=== PATIENT | female | born 1960 | race Hispanic/Latino ===

== ENCOUNTER 2017-06-10 19:00 | Emergency (ER) | payer MEDICAID, OTHER ==
[2017-06-10 19:09] VITALS: BP 139/74; PULSE 91; RESP 16; TEMP 98.2; O2SAT 96
--- NOTE | 2017-06-10 20:16 | ED PDOC ---
HPI: Skin/Bite Injury Time Seen by Provider: 06/10/17 20:00 Chief Complaint (Nursing): Bite Chief Complaint (Provider): bites History Per: Patient History/Exam Limitations: no limitations Onset/Duration Of Symptoms: Days (6) Current Symptoms Are (Timing): Still Present Quality Of Symptoms: Itching Additional History Per: Patient Additional Complaint(s): 56 y/o female presents for eval of pruritic bites x 5 days. Patient states she recently has been staying in the [place], and feels herself getting bit by bed bugs at night; states she has even seen them on her bed. Patient admits to itching bites, and now notes swelling around areas with welts. Denies fever, nausea/vomiting, drainage from sites. Past Medical History Reviewed: Historical Data, Nursing Documentation, Vital Signs Vital Signs: Last Vital Signs Temp 98.2 F 06/10/17 19:07 Pulse 91 H 06/10/17 19:07 Resp 16 06/10/17 19:07 BP 139/74 06/10/17 19:07 Pulse Ox 96 06/10/17 20:20 - Medical History PMH: Asthma, Bronchitis, Depression - Surgical History Surgical History: No Surg Hx - Family History Family History: States: No Known Family Hx - Home Medications Home Medications: Ambulatory Orders Medication Instructions Recorded Prednisone 50 mg PO DAILY #4 tablet 06/10/17 - Allergies Allergies/Adverse Reactions: Allergies Allergy/AdvReac Type Severity Reaction Status Date / Time Sulfa (Sulfonamide Allergy RASH Verified 06/10/17 19:06 Antibiotics) Review of Systems ROS Statement: Except As Marked, All Systems Reviewed And Found Negative Skin: Positive for: Lesions Physical Exam - Reviewed Nursing Documentation Reviewed: Yes - Physical Exam Appears: Positive for: Well, Non-toxic, Uncomfortable (scratching) Head Exam: Positive for: ATRAUMATIC, NORMAL INSPECTION, NORMOCEPHALIC Skin: Positive for: Rash (diffuse scabbed lesions (bites) with surrounding edema /erythema noted bilateral upper and lower extremities, neck, chest, abdomen, back. Neck area with same, also with diffuse hives. No drainage, increased warmth to touch, tenderness noted. No bugs noted) Cardiovascular/Chest: Positive for: Regular Rate, Rhythm Respiratory: Positive for: Normal Breath Sounds Gastrointestinal/Abdominal: Positive for: Normal Exam Back: Positive for: Normal Inspection Extremity: Positive for: Normal ROM Neurologic/Psych: Positive for: Alert, Oriented - ECG O2 Sat by Pulse Oximetry: 96 - Progress ED Course And Treament: Benadryl PO, Prednisone PO Patient educated on findings, discharged with rx Prednisone. Advised Benadryl PRN. Follow up PMD 2-3 days. Return to Ed for worsening/concerning symptoms Disposition - Clinical Impression Clinical Impression: Rash and nonspecific skin eruption, Bedbug bite - Patient ED Disposition Is Patient to be Admitted: No Counseled Patient/Family Regarding: Studies Performed, Diagnosis, Need For Followup, Rx Given - Disposition Referrals: [facility] [Outside] Disposition: Routine/Home Disposition Time: 21:01 Condition: IMPROVED Additional Instructions: Take medication as directed. Take Benadryl every 4-6 hours as directed. Follow up with primary doctor in 2-3 days. Return to ED for worsening/concerning symptoms. Prescriptions: Prednisone 50 mg PO DAILY #4 tablet Instructions: Acute Rash (ED), Bed Bugs (ED)
== END 2017-06-10 21:27 | disposition home or self-care (01) ==
LOC: H.ER 19:00
DX: T14.8XXA Other injury of unspecified body region, initial encounter (principal); W57.XXXA Bitten or stung by nonvenomous insect and other nonvenomous arthropods, initial encounter; Y92.89 Other specified places as the place of occurrence of the external cause; F32.9 Major depressive disorder, single episode, unspecified; J45.909 Unspecified asthma, uncomplicated

== ENCOUNTER 2017-06-12 18:11 | Emergency (ER) | payer MEDICAID, OTHER ==
[2017-06-12 18:41] VITALS: BP 130/69; PULSE 76; RESP 18; TEMP 97; O2SAT 97
--- NOTE | 2017-06-12 19:05 | ED PDOC ---
Lower Extremity Pain/Injury Time Seen by Provider: 06/12/17 18:50 Chief Complaint (Nursing): Lower Extremity Problem/Injury Chief Complaint (Provider): Left knee pain History Per: Patient History/Exam Limitations: no limitations Onset/Duration Of Symptoms: Other (3 weeks) Current Symptoms Are (Timing): Still Present Additional Complaint(s): Patient is a 56 y/o female with no significant past medical history presenting to the emergency department for left knee pain ongoing for three weeks. Reports that she may have twisted it. Denies fall, trauma, or other complaints. PCP: none provided. Past Medical History Reviewed: Historical Data, Nursing Documentation, Vital Signs Vital Signs: Last Vital Signs Temp 97 F L 06/12/17 18:38 Pulse 76 06/12/17 18:38 Resp 18 06/12/17 18:38 BP 130/69 06/12/17 18:38 Pulse Ox 97 06/12/17 18:38 - Medical History PMH: Asthma, Bronchitis, Depression - Family History Family History: States: Unknown Family Hx - Home Medications Home Medications: Ambulatory Orders Medication Instructions Recorded Prednisone 50 mg PO DAILY #4 tablet 06/10/17 Ibuprofen [Motrin] 600 mg PO Q8 #30 tab 06/12/17 - Allergies Allergies/Adverse Reactions: Allergies Allergy/AdvReac Type Severity Reaction Status Date / Time Sulfa (Sulfonamide Allergy RASH Verified 06/12/17 18:38 Antibiotics) Review of Systems ROS Statement: Except As Marked, All Systems Reviewed And Found Negative Musculoskeletal: Positive for: Leg Pain (left knee pain), Other (traumatic pain) Physical Exam - Reviewed Nursing Documentation Reviewed: Yes Vital Signs Reviewed: Yes - Physical Exam Appears: Positive for: Well, Non-toxic, No Acute Distress Head Exam: Positive for: ATRAUMATIC, NORMAL INSPECTION, NORMOCEPHALIC Skin: Positive for: Normal Color, Warm, Dry Eye Exam: Positive for: Normal appearance Neck: Positive for: Normal Cardiovascular/Chest: Positive for: Regular Rate, Rhythm Respiratory: Negative for: Accessory Muscle Use, Respiratory Distress Extremity: Positive for: Normal ROM, Tenderness (mild tenderness to anterior left knee), Other (Dry skin, excoriations, and scabs on legs bilaterally). Negative for: Swelling (or ecchymosis) Neurologic/Psych: Positive for: Alert, Oriented (x3) - ECG O2 Sat by Pulse Oximetry: 97 (RA) Pulse Ox Interpretation: Normal Medical Decision Making Medical Decision Making: Time: 19:04 Initial impression: Left knee pain Initial plan: Toradol 30 mg IM Pain relieved. Patient has her own knee brace. ~ Scribe Attestation: Documented by Dee Hardy, acting as a scribe for ROXANE Garces. Provider Scribe Attestation: All medical record entries made by the Scribe were at my direction and personally dictated by me. I have reviewed the chart and agree that the record accurately reflects my personal performance of the history, physical exam, medical decision making, and the department course for this patient. I have also personally directed, reviewed, and agree with the discharge instructions and disposition. Disposition - Clinical Impression Clinical Impression: Knee sprain - Patient ED Disposition Is Patient to be Admitted: No Counseled Patient/Family Regarding: Diagnosis, Need For Followup, Rx Given - Disposition Referrals: [facility] [Outside] Disposition: Routine/Home Disposition Time: 19:44 Condition: STABLE Additional Instructions: Follow up with the clinic in 2-5 days for further evaluation. Take medications as prescribed. Return to the emergency department at any time if symptoms persist or worsen. You may call [employer] for any assistance [phone]. Prescriptions: Ibuprofen [Motrin] 600 mg PO Q8 #30 tab Instructions: Knee Sprain (ED) Forms: [employer] (Luxembourgish), [facility] ED School/Work Excuse - POA Present On Arrival: None
== END 2017-06-12 20:45 | disposition home or self-care (01) ==
LOC: H.ER 18:11
DX: M25.562 Pain in left knee (principal)
CPT/HCPCS: 96372; 99281; J1885

== ENCOUNTER 2017-07-23 03:08 | Emergency (ER) | payer MEDICAID ==
[2017-07-23 03:48] VITALS: BMI 19.2
[2017-07-23 03:52] VITALS: BP 115/69; PULSE 90; RESP 18; TEMP 97.4; O2SAT 94
--- NOTE | 2017-07-23 04:25 | ED PDOC ---
Lower Extremity Pain/Injury Time Seen by Provider: 07/23/17 04:01 Chief Complaint (Nursing): Lower Extremity Problem/Injury Chief Complaint (Provider): left knee pain History Per: Patient History/Exam Limitations: no limitations Onset/Duration Of Symptoms: Days Current Symptoms Are (Timing): Still Present Additional History Per: Patient Additional Complaint(s): 57 y/o female presents with left knee pain x 2 months. States pain started after a trip and fall, where she landed right on her left knee. Patient seen by PMD 2 days ago and prescribed Naproxen and sent for xray but has not yet been able to get it done. Denies numbness/weakness left lower extremity. Aleeve taken with some relief. Past Medical History Reviewed: Historical Data, Nursing Documentation, Vital Signs Vital Signs: Last Vital Signs Temp 97.4 F L 07/23/17 03:48 Pulse 90 07/23/17 03:48 Resp 18 07/23/17 03:48 BP 115/69 07/23/17 03:48 Pulse Ox 94 L 07/23/17 03:48 - Medical History PMH: Asthma, Bronchitis, Depression - Family History Family History: States: Unknown Family Hx - Home Medications Home Medications: Ambulatory Orders Medication Instructions Recorded Prednisone 50 mg PO DAILY #4 tablet 06/10/17 Ibuprofen [Motrin] 600 mg PO Q8 #30 tab 06/12/17 - Allergies Allergies/Adverse Reactions: Allergies Allergy/AdvReac Type Severity Reaction Status Date / Time Sulfa (Sulfonamide Allergy RASH Verified 07/23/17 03:48 Antibiotics) Review of Systems ROS Statement: Except As Marked, All Systems Reviewed And Found Negative Musculoskeletal: Positive for: Leg Pain (left knee) Physical Exam - Reviewed Nursing Documentation Reviewed: Yes Vital Signs Reviewed: Yes - Physical Exam Appears: Positive for: Well, Non-toxic, No Acute Distress (sleeping) Head Exam: Positive for: ATRAUMATIC, NORMAL INSPECTION, NORMOCEPHALIC Extremity: Positive for: Normal ROM, Tenderness (lateral left knee. No varus/ valgus stress. Neg Jose's), Capillary Refill, Swelling (left patella). Negative for: Pedal Edema, Calf Tenderness, Deformity Neurologic/Psych: Positive for: Alert, Oriented. Negative for: Motor/Sensory Deficits - ECG O2 Sat by Pulse Oximetry: 94 - Progress ED Course And Treament: left knee xray EXAM: XR Left Knee, 3 views CLINICAL HISTORY: 57 years old, female; Pain and injury or trauma; Fall; Initial encounter; Blunt trauma; Knee; Left; Additional info: Fall, pain TECHNIQUE: Three views of the left knee. COMPARISON: No relevant prior studies available. FINDINGS: Bones/joints: Comminuted fracture patella. Chondroid lesion or bone infarct within distal femoral metadiaphysis. No dislocation. No significant joint effusion. Soft tissues: Anterior soft tissue swelling. IMPRESSION: 1. Patellar fracture. 2. Incidental/non-acute findings are described above. Patient educated on findings, refusing QUE wrap, knee immobilizer; states she has her own knee brace. Patient refusing crutches. Advised RICE. Has rx Naproxen. Advised follow up ortho. Return precautions given. Disposition - Clinical Impression Clinical Impression: Patellar fracture - Patient ED Disposition Is Patient to be Admitted: No Counseled Patient/Family Regarding: Studies Performed, Diagnosis, Need For Followup - Disposition Referrals: Tata Penaloza MD [Primary Care Provider] - Daniel Case III, MD [Staff Provider] - Disposition: Routine/Home Disposition Time: 05:06 Condition: STABLE Instructions: Patellar Fracture (ED), RICE Therapy (ED) Forms: [employer] (Ivorian)
--- NOTE | 2017-07-23 04:53 | RAD ---
EXAM: XR Left Knee, 3 views CLINICAL HISTORY: 57 years old, female; Pain and injury or trauma; Fall; Initial encounter; Blunt trauma; Knee; Left; Additional info: Fall, pain TECHNIQUE: Three views of the left knee. COMPARISON: No relevant prior studies available. FINDINGS: Bones/joints: Comminuted fracture patella. Chondroid lesion or bone infarct within distal femoral metadiaphysis. No dislocation. No significant joint effusion. Soft tissues: Anterior soft tissue swelling. IMPRESSION: 1. Patellar fracture. 2. Incidental/non-acute findings are described above.
== END 2017-07-23 05:13 | disposition home or self-care (01) ==
LOC: H.ER 03:08
DX: S82.002A Unspecified fracture of left patella, initial encounter for closed fracture (principal); W19.XXXA Unspecified fall, initial encounter; Y92.89 Other specified places as the place of occurrence of the external cause; F32.9 Major depressive disorder, single episode, unspecified; J45.909 Unspecified asthma, uncomplicated

== ENCOUNTER 2017-08-14 23:26 | Emergency (ER) | payer MEDICAID ==
[2017-08-14 23:26] VITALS: BMI 19.2
[2017-08-14 23:44] VITALS: BP 126/66; PULSE 70; RESP 16; TEMP 97.5; O2SAT 96
[2017-08-15] MEDS ORDERED: Naproxen 500 MG TAB PO ONE ×2 (00:37→00:57)
--- NOTE | 2017-08-15 00:40 | ED PDOC ---
Lower Extremity Pain/Injury Time Seen by Provider: 08/14/17 23:52 Chief Complaint (Nursing): Lower Extremity Problem/Injury Chief Complaint (Provider): left knee pain History Per: Patient History/Exam Limitations: no limitations Onset/Duration Of Symptoms: Days (months) Current Symptoms Are (Timing): Still Present Additional History Per: Patient Additional Complaint(s): 57 y/o nondomicled female presents with left knee pain x months. Patient was diagnosed with patellar fracture on 07/23, states she has not been able to follow up with her primary doctor or an orthopedist. Denies new fall, numbness/ weakness left lower extremity, swelling left lower extremity. Past Medical History Reviewed: Historical Data, Nursing Documentation, Vital Signs Vital Signs: Last Vital Signs Temp 97.5 F L 08/14/17 23:41 Pulse 70 08/14/17 23:41 Resp 16 08/14/17 23:41 BP 126/66 08/14/17 23:41 Pulse Ox 96 08/14/17 23:41 - Medical History PMH: Asthma, Bronchitis, Depression - Family History Family History: States: Unknown Family Hx - Home Medications Home Medications: Ambulatory Orders Medication Instructions Recorded Prednisone 50 mg PO DAILY #4 tablet 06/10/17 Ibuprofen [Motrin] 600 mg PO Q8 #30 tab 06/12/17 - Allergies Allergies/Adverse Reactions: Allergies Allergy/AdvReac Type Severity Reaction Status Date / Time Sulfa (Sulfonamide Allergy RASH Verified 07/23/17 03:48 Antibiotics) Review of Systems ROS Statement: Except As Marked, All Systems Reviewed And Found Negative Musculoskeletal: Positive for: Leg Pain (left knee) Physical Exam - Reviewed Nursing Documentation Reviewed: Yes Vital Signs Reviewed: Yes - Physical Exam Appears: Positive for: Well, Non-toxic, No Acute Distress (sleeping) Head Exam: Positive for: ATRAUMATIC, NORMAL INSPECTION, NORMOCEPHALIC Skin: Positive for: Normal Color Cardiovascular/Chest: Positive for: Regular Rate, Rhythm Respiratory: Positive for: Normal Breath Sounds Pulses-Dorsalis Pedis (L): 2+ Pulses-Dorsalis Pedis (R): 2+ Pulses-Post. Tibialis (L): 2+ Pulses-Post. Tibialis (R): 2+ Extremity: Positive for: Normal ROM, Tenderness (anterior left knee; no swelling , obvious deformity noted), Capillary Refill. Negative for: Calf Tenderness, Deformity, Swelling Neurologic/Psych: Positive for: Alert, Oriented - ECG O2 Sat by Pulse Oximetry: 96 - Progress ED Course And Treament: Patient given Naproxen. Stressed importance of ortho follow up. Patient has knee brace, refused crutches. Patient stable for discharge. Return precautions given. Disposition - Clinical Impression Clinical Impression: Patellar fracture - Patient ED Disposition Is Patient to be Admitted: No Counseled Patient/Family Regarding: Diagnosis, Need For Followup - Disposition Referrals: Luis Alberto Talley MD [Staff Provider] - Disposition: Routine/Home Disposition Time: 00:40 Condition: STABLE Instructions: Patellar Fracture (ED), RICE Therapy (ED)
== END 2017-08-15 03:35 | disposition home or self-care (01) ==
LOC: H.ER 23:26
DX: Z47.89 Encounter for other orthopedic aftercare (principal)

== ENCOUNTER 2017-09-06 18:34 | Emergency (ER) | payer MEDICAID ==
[2017-09-06 18:34] VITALS: BMI 19.2
[2017-09-06] MEDS ORDERED: Albuterol-Ipratrop 3 mg / 0.5 (3 ml) UD IH STA (21:05)
--- NOTE | 2017-09-06 21:08 | ED PDOC ---
HPI: CCC, URI, Sore Throat Time Seen by Provider: 09/06/17 20:40 Chief Complaint (Nursing): Shortness Of Breath History Per: Patient Onset/Duration Of Symptoms: Days (7) Current Symptoms Are (Timing): Still Present Associated Symptoms: Cough. denies: Fever, Sputum Severity: Mild Additional Complaint(s): Cough productive clear sputum assoc with congestion x 1 week. Recently finishe 1 week tx of Augmentin 25 pack/year smoker. Past Medical History Vital Signs: Last Vital Signs Temp 97.5 F L 09/06/17 18:44 Pulse 109 H 09/06/17 18:44 Resp 17 09/06/17 21:56 BP 109/70 09/06/17 18:44 Pulse Ox 100 09/06/17 21:09 - Medical History PMH: Asthma, Bronchitis, Depression - Family History Family History: States: Unknown Family Hx - Home Medications Home Medications: Ambulatory Orders Medication Instructions Recorded Prednisone 50 mg PO DAILY #4 tablet 06/10/17 Ibuprofen [Motrin] 600 mg PO Q8 #30 tab 06/12/17 Albuterol HFA [Ventolin HFA 90 2 puff IH Q4H #1 puff 09/06/17 mcg/actuation (8 g)] Prednisone 50 mg PO DAILY #5 tab 09/06/17 - Allergies Allergies/Adverse Reactions: Allergies Allergy/AdvReac Type Severity Reaction Status Date / Time Sulfa (Sulfonamide Allergy RASH Verified 09/06/17 18:44 Antibiotics) Review of Systems Constitutional: Negative for: Fever ENT: Positive for: Nose Congestion. Negative for: Throat Pain Respiratory: Positive for: Cough, Wheezing Physical Exam - Physical Exam Appears: Positive for: Non-toxic, No Acute Distress Skin: Positive for: Normal Color, Warm, DRY ENT: Positive for: Normal ENT Inspection Neck: Positive for: Normal, Painless ROM Cardiovascular/Chest: Positive for: Regular Rate, Rhythm Respiratory: Positive for: Rhonchi, Wheezing. Negative for: Respiratory Distress Extremity: Positive for: Normal ROM Neurologic/Psych: Positive for: Alert, Oriented - ECG O2 Sat by Pulse Oximetry: 100 Disposition - Clinical Impression Clinical Impression: Bronchitis, chronic - Patient ED Disposition Is Patient to be Admitted: No Counseled Patient/Family Regarding: Studies Performed, Diagnosis, Need For Followup, Rx Given, Smoking Cessation - Disposition Referrals: [facility] [Outside] Disposition: Routine/Home Disposition Time: 23:19 Condition: FAIR Prescriptions: Albuterol HFA [Ventolin HFA 90 mcg/actuation (8 g)] 2 puff IH Q4H #1 puff Prednisone 50 mg PO DAILY #5 tab Instructions: Chronic Bronchitis (ED) Forms: [employer] (Beninese)
[2017-09-06] MEDS ORDERED: Albuterol-Ipratrop 3 mg / 0.5 (3 ml) UD ONE (21:43)
[2017-09-06 23:48] VITALS: BP 139/71; PULSE 89; RESP 16; TEMP 97.9; O2SAT 97
--- NOTE | 2017-09-07 09:00 | RAD ---
HISTORY: cough COMPARISON: Chest radiograph dated 08/26/2013. TECHNIQUE: Chest PA and lateral FINDINGS: LUNGS: No active pulmonary disease. PLEURA: No significant pleural effusion identified. No pneumothorax apparent. CARDIOVASCULAR: Atherosclerotic aortic calcifications. Cardiomediastinal silhouette within normal limits. OSSEOUS STRUCTURES: Partially imaged left humeral intramedullary leesa. Unchanged. VISUALIZED UPPER ABDOMEN: Normal. OTHER FINDINGS: None. IMPRESSION: No active disease.
== END 2017-09-06 23:48 | disposition home or self-care (01) ==
LOC: H.ER 18:34
DX: J40 Bronchitis, not specified as acute or chronic (principal); J45.909 Unspecified asthma, uncomplicated; F32.9 Major depressive disorder, single episode, unspecified

== ENCOUNTER 2017-09-08 06:47 | Emergency (ER) | payer MEDICAID ==
[2017-09-08 06:48] VITALS: BMI 19.2
[2017-09-08 07:41] VITALS: BP 117/75; PULSE 108; RESP 18; TEMP 98.2; O2SAT 96
--- NOTE | 2017-09-08 08:10 | ED PDOC ---
HPI: General Adult Time Seen by Provider: 09/08/17 07:14 Chief Complaint (Nursing): Headache History Per: Patient History/Exam Limitations: no limitations Onset/Duration Of Symptoms: Other (x 2 months) Current Symptoms Are (Timing): Still Present Recently: Seen In ED Additional History Per: Prior Records Additional Complaint(s): Arcelia is a 57 year old female, with a past medical history of depression, who presents to the emergency department complaining of cough, nasal congestion , sneezing on and off for 2 months. Patient states she finished Augmentin a week ago. Patient reports she tried Mucinex and states it cleared up her nasal congestion. Reports some body aches, but denies fever, nausea, chills. Patient was here yesterday and prescribed prednisone and albuterol. Patient is here for second opinion. Symptoms have not worsen. PMD: [facility] Past Medical History Reviewed: Historical Data, Nursing Documentation, Vital Signs Vital Signs: Last Vital Signs Temp 98.2 F 09/08/17 07:38 Pulse 108 H 09/08/17 07:38 Resp 18 09/08/17 07:38 BP 117/75 09/08/17 07:38 Pulse Ox 96 09/08/17 08:21 - Medical History PMH: Asthma, Bronchitis, Depression - Surgical History Surgical History: No Surg Hx - Family History Family History: States: Unknown Family Hx - Home Medications Home Medications: Ambulatory Orders Medication Instructions Recorded Prednisone 50 mg PO DAILY #4 tablet 06/10/17 Ibuprofen [Motrin] 600 mg PO Q8 #30 tab 06/12/17 Albuterol HFA [Ventolin HFA 90 2 puff IH Q4H #1 puff 09/06/17 mcg/actuation (8 g)] Prednisone 50 mg PO DAILY #5 tab 09/06/17 - Allergies Allergies/Adverse Reactions: Allergies Allergy/AdvReac Type Severity Reaction Status Date / Time Sulfa (Sulfonamide Allergy RASH Verified 09/08/17 07:38 Antibiotics) Review of Systems ROS Statement: Except As Marked, All Systems Reviewed And Found Negative Constitutional: Positive for: Other (Body aches). Negative for: Fever, Chills ENT: Positive for: Nose Congestion, Other (Sneezing) Respiratory: Positive for: Cough Neurological: Positive for: Headache Physical Exam - Reviewed Nursing Documentation Reviewed: Yes Vital Signs Reviewed: Yes - Physical Exam Appears: Positive for: Non-toxic Head Exam: Positive for: ATRAUMATIC, NORMAL INSPECTION, NORMOCEPHALIC Skin: Positive for: Normal Color, Warm, Dry Eye Exam: Positive for: Normal appearance, EOMI, PERRL ENT: Positive for: Nasal Congestion Neck: Positive for: Normal Cardiovascular/Chest: Positive for: Tachycardia Respiratory: Positive for: Normal Breath Sounds. Negative for: Respiratory Distress Extremity: Positive for: Normal ROM. Negative for: Deformity Neurologic/Psych: Positive for: Alert, Oriented (x 3) - ECG O2 Sat by Pulse Oximetry: 96 (RA) Pulse Ox Interpretation: Normal Medical Decision Making Medical Decision Making: Time: 08:09 Impression(s): Bronchitis, URI Upon provider evaluation patient is medically stable, and requires no further treatment in the ED at this time. Counseling was provided and all questions were answered regarding diagnosis and need for follow up with PCP. There is agreement to discharge plan. Return if symptoms persist or worsen. Scribe Attestation: Documented by Epifanio Ac, acting as a scribe for Macario Macias MD. Provider Scribe Attestation: All medical record entries made by the Scribe were at my direction and personally dictated by me. I have reviewed the chart and agree that the record accurately reflects my personal performance of the history, physical exam, medical decision making, and the department course for this patient. I have also personally directed, reviewed, and agree with the discharge instructions and disposition. Disposition - Clinical Impression Clinical Impression: Bronchitis, Upper respiratory tract infection - Patient ED Disposition Is Patient to be Admitted: No - Disposition Referrals: Luan Murphy DO, DO [[facility]] - Disposition: Routine/Home Disposition Time: 08:09 Condition: STABLE Additional Instructions: Ms Majano, thank you for letting us take care of you today. Your provider was Dr. Macias. You were treated for Bronchitis, Upper Respiratory Infection. The emergency medical care you received today was directed at your acute symptoms. If you were prescribed any medication, please fill it and take as directed. It may take several days for your symptoms to resolve. Return to the Emergency Department if your symptoms worsen, do not improve, or if you have any other problems. Please contact your doctor or call one of the physicians/clinics you have been referred to that are listed on the Patient Visit Information form that is included in your discharge packet. Bring any paperwork you were given at discharge with you along with any medications you are taking to your follow up visit. Our treatment cannot replace ongoing medical care by a primary care provider (PCP) outside of the emergency department. Thank you for allowing the [employer] team to be part of your care today. If you had an X-Ray or CT scan: A Radiologist will review the ED reading if any change in treatment is needed we will contact you. If you had a blood, urine, or wound culture: It will take several days for the results, if any change in treatment is needed we will contact you. If you had an STI test: It will take 48 hours for the results. Please call after 1 week if you have not heard back. Instructions: Upper Respiratory Infection (ED) Forms: [employer] (Welsh), [facility] ED School/Work Excuse
== END 2017-09-08 09:00 | disposition home or self-care (01) ==
LOC: H.ER 06:47
DX: J06.9 Acute upper respiratory infection, unspecified (principal); F32.9 Major depressive disorder, single episode, unspecified

== ENCOUNTER 2017-09-08 20:48 | Emergency (ER) | payer MEDICAID ==
[2017-09-08 20:52] VITALS: BMI 20.1
[2017-09-08 20:56] VITALS: BP 102/64; PULSE 83; RESP 16; TEMP 98.9; O2SAT 99
[2017-09-08] MEDS ORDERED: Phenylephrine 0.5% Nasal Spray NAS STA (23:54)
--- NOTE | 2017-09-09 00:08 | ED PDOC ---
HPI: Psych/Substance Abuse Time Seen by Provider: 09/08/17 23:31 Chief Complaint (Nursing): Alcohol Ingestion Chief Complaint (Provider): Alcohol Intoxication ED Caveat: Intoxicated History Per: Patient History/Exam Limitations: intoxication Suicide/Self Injury Attempted (Context): None Modifying Factor(s): Alcohol Additional Complaint(s): 57 year old female brought in by EMS presents to ED due to alcohol intoxication and complains of severe bilateral nasal congestion. Patient has a past medical history of asthma and alcohol intoxication. Notes being seen here at the ED earlier for the same complaint and was started on prednisone. Patient is concerned that she should be taking a course of antibiotics, as she was on Augmentin 2 weeks ago and notes that symptoms improved at the time but returned today. (+) mild cough and subjective fever. (-) chest pain, SOB, or trauma. Notes that nasal congestion prevents patient from attaining sleep. Patient admits to drinking today and has had multiple previous visits for alcohol intoxication. Of note, patient's HPI timeline may be unreliable due to alcohol intoxication. PCP: CRISTIAN Past Medical History Reviewed: Historical Data, Nursing Documentation, Vital Signs Vital Signs: Last Vital Signs Temp 98.9 F 09/08/17 20:53 Pulse 83 09/08/17 20:53 Resp 16 09/08/17 20:53 BP 102/64 09/08/17 20:53 Pulse Ox 99 09/08/17 20:53 - Medical History PMH: Asthma, Bronchitis, Depression - Family History Family History: States: No Known Family Hx - Social History Current smoker - smoking cessation education provided: Yes Ex-Smoker (has not smoked in the last 12 months): No Alcohol: > 2 Drinks/Day Drugs: Denies - Home Medications Home Medications: Ambulatory Orders Medication Instructions Recorded Prednisone 50 mg PO DAILY #4 tablet 06/10/17 Ibuprofen [Motrin] 600 mg PO Q8 #30 tab 06/12/17 Albuterol HFA [Ventolin HFA 90 2 puff IH Q4H #1 puff 09/06/17 mcg/actuation (8 g)] Prednisone 50 mg PO DAILY #5 tab 09/06/17 Azithromycin [Zithromax] 250 mg PO DAILY #6 dose 09/09/17 Pseudoephedrine [Sudafed Tab] 60 mg PO Q6 PRN #30 tab 09/09/17 - Allergies Allergies/Adverse Reactions: Allergies Allergy/AdvReac Type Severity Reaction Status Date / Time Sulfa (Sulfonamide Allergy RASH Verified 09/08/17 07:38 Antibiotics) Review of Systems ROS Statement: Except As Marked, All Systems Reviewed And Found Negative Constitutional: Positive for: Fever (subjective) ENT: Positive for: Nose Congestion Cardiovascular: Negative for: Chest Pain Respiratory: Positive for: Cough. Negative for: Shortness of Breath Physical Exam - Reviewed Nursing Documentation Reviewed: Yes Vital Signs Reviewed: Yes - Physical Exam Appears: Positive for: Well, No Acute Distress Head Exam: Positive for: ATRAUMATIC, NORMOCEPHALIC Skin: Positive for: Warm, Dry Eye Exam: Positive for: EOMI, PERRL ENT: Positive for: Nasal Congestion (with erythematous boggy moist turbinates). Negative for: Pharyngeal Erythema, Tonsillar Exudate Neck: Positive for: Painless ROM, Supple Cardiovascular/Chest: Positive for: Regular Rate, Rhythm. Negative for: Murmur Respiratory: Positive for: Normal Breath Sounds. Negative for: Accessory Muscle Use, Respiratory Distress Lymphatic: Negative for: Adenopathy (cervical) Neurologic/Psych: Positive for: Alert, Gait (steady). Negative for: Motor/ Sensory Deficits - ECG O2 Sat by Pulse Oximetry: 99 (RA) Pulse Ox Interpretation: Normal Medical Decision Making Medical Decision Makin Initial impression: EtOH intoxication, sinusitis Initial plan: * Phenylephrine 0.5% 2 spry SHOSHANA Scribe Attestation: Documented by Emmanuelle Hutton acting as a scribe for Michelle Wilkinson MD. Scribe Attestation: All medical record entries made by the Scribe were at my direction and personally dictated by me. I have reviewed the chart and agree that the record accurately reflects my personal performance of the history, physical exam, medical decision making, and the department course for this patient. I have also personally directed, reviewed, and agree with the discharge instructions and disposition. Disposition - Clinical Impression Clinical Impression: Alcohol use, Sinusitis - Disposition Referrals: [facility] [Outside] Disposition: Routine/Home Disposition Time: 23:30 Condition: STABLE Prescriptions: Azithromycin [Zithromax] 250 mg PO DAILY #6 dose Pseudoephedrine [Sudafed Tab] 60 mg PO Q6 PRN #30 tab PRN Reason: congestion Instructions: Sinusitis (ED), Alcohol Intoxication (ED) Forms: [employer] ([place])
== END 2017-09-09 00:35 | disposition home or self-care (01) ==
LOC: H.ER 20:48
DX: F10.129 Alcohol abuse with intoxication, unspecified (principal); J32.9 Chronic sinusitis, unspecified; F32.9 Major depressive disorder, single episode, unspecified; J45.909 Unspecified asthma, uncomplicated

== ENCOUNTER 2017-09-20 18:48 | Emergency (ER) | payer MEDICAID ==
[2017-09-20 18:48] VITALS: BMI 20.1
[2017-09-20 18:56] VITALS: BP 95/56; PULSE 80; RESP 16; TEMP 98.1; O2SAT 99
--- NOTE | 2017-09-20 19:40 | ED PDOC ---
Lower Extremity Pain/Injury Time Seen by Provider: 09/20/17 19:16 Chief Complaint (Nursing): Lower Extremity Problem/Injury Chief Complaint (Provider): left knee pain History Per: Patient Additional Complaint(s): 57-year-old female presents with left knee pain ongoing since May 2017 when she fell. Patient was diagnosed with patellar fracture and was told by orthopedist that she should've had surgery but never did. Patient is currently awaiting approval for physical therapy. She presents today with worsening pain. Patient has been taking Mobic which has helped somewhat with pain. She denies more recent trauma. PMD: none Past Medical History Reviewed: Historical Data, Nursing Documentation, Vital Signs Vital Signs: Last Vital Signs Temp 98.1 F 09/20/17 18:53 Pulse 80 09/20/17 18:53 Resp 16 09/20/17 18:53 BP 95/56 L 09/20/17 18:53 Pulse Ox 99 09/20/17 18:53 - Medical History PMH: Asthma, Depression - Family History Family History: States: No Known Family Hx - Social History Current smoker - smoking cessation education provided: No Alcohol: > 2 Drinks/Day Drugs: Denies - Home Medications Home Medications: Ambulatory Orders Medication Instructions Recorded Prednisone 50 mg PO DAILY #4 tablet 06/10/17 Ibuprofen [Motrin] 600 mg PO Q8 #30 tab 06/12/17 Albuterol HFA [Ventolin HFA 90 2 puff IH Q4H #1 puff 09/06/17 mcg/actuation (8 g)] Prednisone 50 mg PO DAILY #5 tab 09/06/17 Azithromycin [Zithromax] 250 mg PO DAILY #6 dose 09/09/17 Pseudoephedrine [Sudafed Tab] 60 mg PO Q6 PRN #30 tab 09/09/17 - Allergies Allergies/Adverse Reactions: Allergies Allergy/AdvReac Type Severity Reaction Status Date / Time Sulfa (Sulfonamide Allergy RASH Verified 09/08/17 07:38 Antibiotics) Wells Criteria for PE - Wells Criteria for Pulmonary Embolism Clinical Signs and Symptoms of DVT: No P.E is #1 Diagnosis, or Equally Likely: No Heart Rate >100: No Immobilization at least 3 days;Surgery previous 4 weeks: No Previous, objectively diagnosed PE or DVT: No Hemoptysis: No Malignancy w/treatment within 6 months, or palliative: No Total Score: 0 Review of Systems ROS Statement: Except As Marked, All Systems Reviewed And Found Negative Musculoskeletal: Positive for: Other (left knee pain) Physical Exam - Reviewed Nursing Documentation Reviewed: Yes Vital Signs Reviewed: Yes - Physical Exam Appears: Positive for: Well, Non-toxic, No Acute Distress Skin: Negative for: Rash Eye Exam: Positive for: Normal appearance Extremity: Positive for: Other (Point tenderness left patellar region with full range of motion left knee, normal distal sensation left lower extremity) Neurologic/Psych: Positive for: Alert, Oriented - ECG O2 Sat by Pulse Oximetry: 99 Pulse Ox Interpretation: Normal Medical Decision Making Medical Decision Makin57 year old with left knee pain Patient declined pain medication. Knee immoblizer was applied. Patient states she will continue with Mobic and follow-up with her orthopedist. Procedures - Splinting Location: left knee Pre-Made Type: knee immobilizer Pre-Proc Neuro Vasc Exam: normal Post-Proc Neuro Vasc Exam: normal Disposition - Clinical Impression Clinical Impression: Left knee pain - Patient ED Disposition Is Patient to be Admitted: No Counseled Patient/Family Regarding: Need For Followup - Disposition Referrals: Jon Samayoa MD [Staff Provider] - Disposition: Routine/Home Disposition Time: 20:06 Condition: STABLE Additional Instructions: FOLLOW UP SHOBHA WITH YOUR ORTHOPEDIST Instructions: Knee Pain (DC) Forms: [employer] (E[place]ian)
== END 2017-09-20 20:14 | disposition home or self-care (01) ==
LOC: H.ER 18:48
DX: M25.562 Pain in left knee (principal)

== ENCOUNTER 2017-09-29 21:08 | Emergency (ER) | payer MEDICAID ==
[2017-09-29 21:08] VITALS: BMI 20.1
[2017-09-29 21:32] VITALS: BP 123/73; PULSE 80; RESP 16; TEMP 97.9; O2SAT 99
--- NOTE | 2017-09-29 22:18 | ED PDOC ---
HPI: Psych/Substance Abuse Time Seen by Provider: 09/29/17 21:39 Chief Complaint (Nursing): Anxiety Chief Complaint (Provider): anxiety History Per: Patient History/Exam Limitations: no limitations Additional Complaint(s): 57 y/o female history of depression presents with anxiety x 5 hours. Patient states she went to her psychiatrist today for a check up and they increased her lexapro dose. Patient states after that she was denied by the [facility] because she took some Nyquil to help her sleep. Patient states that then triggered her anxiety, admits to having suicidal ideations of doing somewhere and dying; plan to take pills. Denies homicidal ideations, hallucinations, chest pain, shortness of breath, palpitations. Past Medical History Reviewed: Historical Data, Nursing Documentation, Vital Signs Vital Signs: Last Vital Signs Temp 97.9 F 09/29/17 21:28 Pulse 80 09/29/17 21:28 Resp 16 09/29/17 21:28 BP 123/73 09/29/17 21:28 Pulse Ox 99 09/29/17 21:28 - Medical History PMH: Asthma, Bronchitis, Depression - Family History Family History: States: Unknown Family Hx - Home Medications Home Medications: Ambulatory Orders Medication Instructions Recorded Prednisone 50 mg PO DAILY #4 tablet 06/10/17 Ibuprofen [Motrin] 600 mg PO Q8 #30 tab 06/12/17 Albuterol HFA [Ventolin HFA 90 2 puff IH Q4H #1 puff 09/06/17 mcg/actuation (8 g)] Prednisone 50 mg PO DAILY #5 tab 09/06/17 Azithromycin [Zithromax] 250 mg PO DAILY #6 dose 09/09/17 Pseudoephedrine [Sudafed Tab] 60 mg PO Q6 PRN #30 tab 09/09/17 - Allergies Allergies/Adverse Reactions: Allergies Allergy/AdvReac Type Severity Reaction Status Date / Time Sulfa (Sulfonamide Allergy RASH Verified 09/08/17 07:38 Antibiotics) Review of Systems ROS Statement: Except As Marked, All Systems Reviewed And Found Negative Psych: Positive for: Anxiety, Depression Physical Exam - Reviewed Nursing Documentation Reviewed: Yes Vital Signs Reviewed: Yes - Physical Exam Appears: Positive for: Well, Non-toxic, Uncomfortable (anxious, intoxicated) Head Exam: Positive for: ATRAUMATIC, NORMAL INSPECTION, NORMOCEPHALIC Eye Exam: Positive for: Normal appearance ENT: Positive for: Normal ENT Inspection Cardiovascular/Chest: Positive for: Regular Rate, Rhythm Respiratory: Positive for: Normal Breath Sounds Gastrointestinal/Abdominal: Positive for: Normal Exam Back: Positive for: Normal Inspection Extremity: Positive for: Normal ROM Neurologic/Psych: Positive for: Alert, Oriented - Laboratory Results Result Diagrams: 09/29/17 23:16 09/29/17 23:16 - ECG O2 Sat by Pulse Oximetry: 99 - Progress ED Course And Treament: labs, urine, 1:1 09/30/17 00:00 Patient resting comfortably; no distress 1:30 Patient evaluated by bee worker; does not meet criteria for admission at this time as per Dr. Rawls. Follow up outpatient. Patient AAOx3. Ambulating steady gait. Stable for discharge Disposition - Clinical Impression Clinical Impression: Anxiety, Alcohol use - Patient ED Disposition Is Patient to be Admitted: No Counseled Patient/Family Regarding: Studies Performed, Diagnosis, Need For Followup - Disposition Disposition: Routine/Home Disposition Time: 01:36 Condition: STABLE Instructions: Alcohol Use - When Is Drinking a Problem?, Anxiety, Adult (DC)
[2017-09-29 23:17] LABS: SQUAMOUS EPITHIAL < 1 /hpf (0-5); URINE BILIRUBIN NEGATIVE (NEGATIVE); URINE BLOOD NEGATIVE (NEGATIVE); URINE CLARITY SLIGHTY-CLOUDY (Clear); URINE COLOR STRAW (YELLOW); URINE GLUCOSE (UA) NEG (Normal); URINE LEUKOCYTE ESTERASE NEG Leu/uL (Negative); URINE NITRATE NEGATIVE (NEGATIVE); URINE PROTEIN NEGATIVE (NEGATIVE); URINE UROBILINOGEN 0.2-1.0 mg/dL (0.2-1.0)
[2017-09-29 23:20] LABS: BASO # 0.1 K/uL (0.0-0.2); BASO % 1.2 % (0.0-2.0); EOS # 0.1 K/uL (0.0-0.7); EOS % 2.4 % (0.0-4.0); HEMOGLOBIN 12.8 g/dL (12.0-16.0); LYMPH # 1.7 K/uL (1.0-4.3); LYMPH % 28.8 % (20.0-40.0); MEAN CELL VOLUME 91.5 fl (81.0-99.0); MEAN CORPUSCULAR HEMOGLOBIN 31.2 pg (27.0-31.0); MEAN CORPUSCULAR HGB CONC 34.1 g/dL (33.0-37.0); MEAN PLATELET VOLUME 6.8 fl (7.2-11.7); MONO # 0.7 K/uL (0.0-0.8); MONO % 11.6 % (0.0-10.0); NEUT # 3.2 K/uL (1.8-7.0); RBC 4.08 Mil/uL (3.80-5.20); RED CELL DISTRIBUTION WIDTH 13.1 % (11.5-14.5); WHITE BLOOD COUNT 5.8 K/uL (4.8-10.8)
[2017-09-29 23:31] LABS: ALB/GLOB RATIO 1.4 (1.0-2.1); ALBUMIN 4.3 g/dL (3.5-5.0); ALT/SGPT 28 U/L (9-52); AST/SGOT 26 U/L (14-36); BLOOD UREA NITROGEN 9 mg/dl (7-17); CALCIUM 9.1 mg/dL (8.4-10.2); GFR AFRICAN-AMERICAN > 60; GFR NON-AFRICAN AMERICAN > 60
[2017-09-29 23:40] LABS: BARBITURATES, UR NEGATIVE (NEGATIVE); BENZODIAZEPINES, UR NEGATIVE (NEGATIVE); OPIATES, UR NEGATIVE (NEGATIVE); PHENCYCLIDINE, UR NEGATIVE (NEGATIVE)
== END 2017-09-30 02:30 | disposition home or self-care (01) ==
LOC: H.ER 21:08
DX: F41.9 Anxiety disorder, unspecified (principal); R45.851 Suicidal ideations; F32.9 Major depressive disorder, single episode, unspecified; J45.909 Unspecified asthma, uncomplicated; Z59.0 Homelessness

== ENCOUNTER 2017-10-01 00:04 | Inpatient (IN) | payer MEDICAID ==
[2017-10-01] MEDS ORDERED: Albuterol-Ipratrop 3 mg / 0.5 (3 ml) UD INH STA ×4 (00:13→00:19)
[2017-10-01] MEDS ORDERED: Sodium Chloride 0.9% 1,000 ML IV STA ×2 (00:13→03:08)
[2017-10-01] MEDS ORDERED: Naloxone 0.4 mg/ml Inj (Adult) IVP STA (00:39)
[2017-10-01] MEDS ORDERED: Naloxone 0.4 mg/ml Inj (Adult) ONE (00:39)
[2017-10-01 00:41] LABS: BASO # 0.1 K/uL (0.0-0.2); BASO % 0.9 % (0.0-2.0); EOS # 0.2 K/uL (0.0-0.7); EOS % 3.5 % (0.0-4.0); HEMOGLOBIN 13.1 g/dL (12.0-16.0); LYMPH # 2.1 K/uL (1.0-4.3); LYMPH % 30.8 % (20.0-40.0); MEAN CELL VOLUME 91.5 fl (81.0-99.0); MEAN CORPUSCULAR HEMOGLOBIN 31.1 pg (27.0-31.0); MEAN CORPUSCULAR HGB CONC 33.9 g/dL (33.0-37.0); MEAN PLATELET VOLUME 7.3 fl (7.2-11.7); MONO # 0.6 K/uL (0.0-0.8); MONO % 8.7 % (0.0-10.0); NEUT # 3.8 K/uL (1.8-7.0); NEUT % 56.1 % (50.0-75.0); NRBC % 0.1 % (0.0-0.0); RBC 4.22 Mil/uL (3.80-5.20); RED CELL DISTRIBUTION WIDTH 13.6 % (11.5-14.5); WHITE BLOOD COUNT 6.7 K/uL (4.8-10.8)
--- NOTE | 2017-10-01 00:52 | ED PDOC ---
HPI: Psych/Substance Abuse Time Seen by Provider: 10/01/17 00:11 Chief Complaint (Nursing): Substance Abuse Chief Complaint (Provider): Substance Abuse ED Caveat: Other (Unconscious) History Per: EMS History/Exam Limitations: no limitations Onset/Duration Of Symptoms: Mins (prior to arrival) Current Symptoms Are (Timing): Still Present Additional Complaint(s): 57 year old undomiciled female, well known to the ED, with a medical history of drug and alcohol abuse, was brought into the ED via EMS after a witnessed drug overdose. It is suspected she took 300 5 mg tablets of Ambien that were dispensed to her yesterday and also may have used alcohol. On arrival she was obtunded and unresponsive. PMd: none provided. Past Medical History Reviewed: Historical Data, Nursing Documentation, Vital Signs Vital Signs: Last Vital Signs Temp Pulse 52 L 10/01/17 00:06 Resp 14 10/01/17 00:06 BP 120/71 10/01/17 00:06 Pulse Ox - Medical History PMH: Asthma, Bronchitis, Depression Denies: Diabetes, Hepatitis, HIV, HTN, Seizures, Sexually Transmitted Disease - Surgical History Other surgeries: Left humerus surgery - Family History Family History: States: Unknown Family Hx - Home Medications Home Medications: Ambulatory Orders Medication Instructions Recorded Diphenhydramine HCl [Wal-Dryl] 25 mg PO PRN PRN 10/01/17 Escitalopram [Lexapro] 10 mg PO DAILY 10/01/17 Escitalopram [Lexapro] 20 mg PO DAILY 10/01/17 Meloxicam [Mobic] 7.5 mg PO BID 10/01/17 Pseudoephedrine HCl [Sudafed] 60 mg PO Q6 PRN 10/01/17 Zolpidem Tartrate [Zolpidem 5 mg PO HS 10/01/17 Tartrate] - Allergies Allergies/Adverse Reactions: Allergies Allergy/AdvReac Type Severity Reaction Status Date / Time Sulfa (Sulfonamide Allergy RASH Verified 10/01/17 00:06 Antibiotics) Review of Systems ROS Statement: Except As Marked, All Systems Reviewed And Found Negative Physical Exam - Reviewed Nursing Documentation Reviewed: Yes Vital Signs Reviewed: Yes - Physical Exam Appears: Positive for: In Acute Distress (obtunded and unresponsive except to sternal rub) Head Exam: Positive for: ATRAUMATIC, NORMAL INSPECTION, NORMOCEPHALIC Skin: Positive for: Normal Color, Warm, Dry Eye Exam: Positive for: PERRL Neck: Positive for: Normal, Painless ROM, Supple Cardiovascular/Chest: Positive for: Regular Rate, Rhythm. Negative for: Murmur Respiratory: Positive for: Wheezing (bilateral) Gastrointestinal/Abdominal: Positive for: Normal Exam, Soft Extremity: Positive for: Normal ROM. Negative for: Deformity Neurologic/Psych: Positive for: Other (Unresponsive and obtunded). Negative for : Alert, Oriented - Laboratory Results Result Diagrams: 10/01/17 00:25 10/01/17 00:25 - ECG Pulse Ox Interpretation: Normal Medical Decision Making Medical Decision Makin:12 Initial Plan: --EKG --Acetaminophen --Alcohol serum --CMP --urine drug --Lactic acid, plasma --Salicylate --Poison control tele-consult --Jena --CBC with differentials --PTT --Prothrombin time --Chest x-ray --Narcan .8 mg IVP --Solumedrol 125 mg IVP --Zosyn --Zofran Inj 4 mg IV --Blood cx --1:1 --Ng tube inserted --Garcia catheter --Peak flow pre/post Chest x-ray revealed increased bilateral markings. Time: 01:35 --Spoke to Poison Control nurse Ayah Lemon who recommended symptomatic and supportive care. Labs revealed no abnormalities with exception of elevated alcohol. Discussed with Dr. Garcia, family practice resident appellate conferee, and admitted to Dr. Wong for ICU placement. Scribe Attestation: Documented by Bibi Amador, acting as a scribe for Luis Maldonado MD. Provider Scribe Attestation: All medical record entries made by the Scribe were at my direction and personally dictated by me. I have reviewed the chart and agree that the record accurately reflects my personal performance of the history, physical exam, medical decision making, and the department course for this patient. I have also personally directed, reviewed, and agree with the discharge instructions and disposition. Disposition - Clinical Impression Clinical Impression: Juanien accidental overdose - Patient ED Disposition Is Patient to be Admitted: Yes - Disposition Disposition Time: 00:41 Condition: STABLE - Pt Status Changed To: Hospital Disposition Of: Inpatient - Admit Certification Admit to Inpatient:: After my assessment, the patient will require hospitalization for at least two midnights. This is because of the severity of symptoms shown, intensity of services needed, and/or the medical risk in this patient being treated as an outpatient. Critical Care Time - Critical Care Note Total Time (in mins): 60 Documented critical care: time excludes all time spent performing seperately billable procedures.
[2017-10-01 00:55] LABS: ACETAMINOPHEN < 10.0 ug/ml (10.0-30.0); SALICYLATE < 1.0 mg/dl
[2017-10-01 01:11] LABS: ALB/GLOB RATIO 1.4 (1.0-2.1); ALBUMIN 4.5 g/dL (3.5-5.0); ALT/SGPT 27 U/L (9-52); AST/SGOT 27 U/L (14-36); BLOOD UREA NITROGEN 6 mg/dl (7-17); CALCIUM 8.6 mg/dL (8.4-10.2); GFR AFRICAN-AMERICAN > 60; GFR NON-AFRICAN AMERICAN > 60
[2017-10-01] MEDS ORDERED: Piperacillin/Tazobact 3.375 GM in Sodium Chloride 0.9% 100 ML IV STA (01:26)
[2017-10-01] MEDS ORDERED: Piperacillin/Tazobact 3.375 gm Inj IVPB ONE (01:36)
--- NOTE | 2017-10-01 01:36 | CP.PCM.CON ---
History of Present Illness - History of Present Illness History of Present Illness: Attending: Roni Hatch MD Reason for Consult: Critical care management Chief Complaint: Substance Abuse/ Drug Overdose The Patient was seen and examined in the ED HPI: The Hx was obtained from the ED Physician, and after review of the medical records. This is a 57 years old homeless female brought to the ED after being found on the streets, unresponsive. EMS information indicated that the patient had been drinking Alcohol and had taken Ambien tablets. The Ambien bottle found next to her was filled on the same day with 30 tabs of 5mg each. The Patient was Obtunded and unresponsive arriving at the ED. She had an episode of epistaxis in the ED. She has hx of Asthma, depression, with multiple ED visits for Alcohol intoxication. last seen at the ED 09/29/17 with suicidal Ideation of taking pills. She was seen by the crisis team and was referred for out-patient Psychiatric follow up. PMH: Asthma, Bronchitis, Depression, alcohol abuse PSH: Left Humerus ORIF SH: Drinks Alcohol heavily; No known substance abuse; Unknown if ever smoked; Homeless FH: States: Unknown Family hx Allergies: Sulfa drugs Medication: Reviewed Review of Systems - Review of Systems Systems not reviewed;Unavailable: Intoxicated Review of Systems: Review of systems is limited because the patient is unresponsive. Past Patient History - Past Medical History & Family History Past Medical History?: Yes - Past Social History Smoking Status: Unknown If Ever Smoked Chewing Tobacco Use: No Cigar Use: No Alcohol: > 2 Drinks/Day Drugs: Denies Home Situation {Lives}: Homeless - CARDIAC Hx Cardiac Disorders: No Hx Hypertension: No - PULMONARY Hx Asthma: Yes Hx Bronchitis: Yes - NEUROLOGICAL Hx Neurological Disorder: No Hx Seizures: No - HEENT Hx HEENT Problems: No - RENAL Hx Chronic Kidney Disease: No - ENDOCRINE/METABOLIC Hx Endocrine Disorders: No - HEMATOLOGICAL/ONCOLOGICAL Hx Blood Disorders: No Hx Human Immunodeficiency Virus (HIV): No - INTEGUMENTARY Hx Dermatological Problems: No - GASTROINTESTINAL Hx Gastrointestinal Disorders: No - GENITOURINARY/GYNECOLOGICAL Hx Genitourinary Disorders: No Hx Sexually Transmitted Disorders: No - PSYCHIATRIC Hx Depression: Yes - SURGICAL HISTORY Hx Orthopedic Surgery: Yes (Left Humerus ORIF) - ANESTHESIA Hx Anesthesia: Yes Hx Anesthesia Reactions: No Meds Allergies/Adverse Reactions: Allergies Allergy/AdvReac Type Severity Reaction Status Date / Time Sulfa (Sulfonamide Allergy RASH Verified 10/01/17 00:06 Antibiotics) - Medications Medications: Current Medications Piperacillin Sod/Tazobactam (Sod 3.375 gm/ Sodium Chloride) 100 mls @ 100 mls/ hr IV STAT STA PRN Reason: Protocol Stop: 10/01/17 02:25 Multivitamins/Vitamin C 10 ml/Folic Acid 1 mg/ Thiamine HCl 100 mg/ Dextrose/ Sodium Chloride 1,011.2 mls @ 125 mls/hr IV .Q8H6M ONE Stop: 10/01/17 09:50 Physical Exam - Constitutional Appears: Toxic - Head Exam Head Exam: ATRAUMATIC, NORMAL INSPECTION, NORMOCEPHALIC - Eye Exam Eye Exam: Normal appearance Additional comments: Pupils equal and reacting sluggish to light - ENT Exam ENT Exam: Normal External Ear Exam Additional comments: Dry blood at the nostrels - Neck Exam Neck exam: Positive for: Normal Inspection - Respiratory Exam Additional comments: Expiratory coarse crackles with audible rhonchi. - Cardiovascular Exam Cardiovascular Exam: REGULAR RHYTHM, RRR, +S1, +S2. absent: Gallop - GI/Abdominal Exam GI & Abdominal Exam: Normal Bowel Sounds, Soft. absent: Mass, Organomegaly - Rectal Exam Rectal Exam: Deferred - Extremities Exam Extremities exam: Positive for: normal inspection. Negative for: joint swelling , pedal edema, tenderness - Back Exam Back exam: NORMAL INSPECTION - Neurological Exam Additional comments: Responsive to Painful stimuli. No facial droop, Flaccid upper and lower extremities with motor strength0/5 at all extremities. Withdrawal with painful stimuli. No focal neurological findings. - Psychiatric Exam Psychiatric exam: Suicidal Ideation - Skin Skin Exam: Dry, Normal Color, Warm Results - Vital Signs Recent Vital Signs: Last Vital Signs Temp 97.0 F L 10/01/17 01:33 Pulse 52 L 10/01/17 00:06 Resp 14 10/01/17 00:06 BP 120/71 10/01/17 00:06 Pulse Ox 94 L 10/01/17 01:33 - Labs Result Diagrams: 10/01/17 00:25 10/01/17 00:25 Labs: Laboratory Results - last 24 hr 10/01/17 10/01/17 10/01/17 00:10 00:25 00:25 WBC RBC Hgb Hct MCV MCH MCHC RDW Plt Count MPV Neut % (Auto) Lymph % (Auto) [place] % (Auto) Eos % (Auto) Baso % (Auto) Neut # (Auto) Lymph # (Auto) [place] # (Auto) Eos # (Auto) Baso # (Auto) Sodium 131 L Potassium 4.1 Chloride 93 L Carbon Dioxide 22 Anion Gap 20 BUN 6 L Creatinine 0.5 L Est GFR ( Amer) > 60 Est GFR (Non-Af Amer) > 60 POC Glucose (mg/dL) 82 Random Glucose 91 Calcium 8.6 Total Bilirubin 0.3 AST 27 ALT 27 Alkaline Phosphatase 76 Total Protein 7.7 Albumin 4.5 Globulin 3.2 Albumin/Globulin Ratio 1.4 Salicylates < 1.0 Acetaminophen < 10.0 L Alcohol, Quantitative 326 H* 10/01/17 00:25 WBC 6.7 RBC 4.22 Hgb 13.1 Hct 38.6 MCV 91.5 MCH 31.1 H MCHC 33.9 RDW 13.6 Plt Count 336 MPV 7.3 Neut % (Auto) 56.1 Lymph % (Auto) 30.8 [place] % (Auto) 8.7 Eos % (Auto) 3.5 Baso % (Auto) 0.9 Neut # (Auto) 3.8 Lymph # (Auto) 2.1 [place] # (Auto) 0.6 Eos # (Auto) 0.2 Baso # (Auto) 0.1 Sodium Potassium Chloride Carbon Dioxide Anion Gap BUN Creatinine Est GFR ( Amer) Est GFR (Non-Af Amer) POC Glucose (mg/dL) Random Glucose Calcium Total Bilirubin AST ALT Alkaline Phosphatase Total Protein Albumin Globulin Albumin/Globulin Ratio Salicylates Acetaminophen Alcohol, Quantitative - Imaging and Cardiology Chest x-ray Status: Image reviewed by me Additional comment: Bilateral interstitial infiltrate Assessment & Plan - Assessment and Plan (Free Text) Assessment: #. Alcohol Intoxication #. Ambien Overdose # Depression #. Pulmonary Infiltrate r/o Pneumonia #. Asthma exacerbation Plan: 57 years old homeless female brought to the ED after being found on the streets , unresponsive. EMS information indicated that the patient had been drinking Alcohol and had taken Ambien tablets. The Ambien bottle found next to her was filled on the same day with 30 tabs of 5mg each. The Patient was Obtunded and unresponsive arriving at the ED. #. Unresponsive due to the Alcohol intoxication and the Ambien Overdose - Admit to ICU for Close monitoring - Treat the causes #. Alcohol Intoxication - Banana Bag with Multivitamin/ Folic Acid and Thiamine - Thiamine IM Daily - Use low dose Ativan for Agitation - #. Ambien Overdose - IV fluid - No Romazicon - Monitor respiration and SpO2 #. Depression with Possible Suicide Attempt - Consult Dr Rawls Psychiatry #. Pulmonary Infiltrate r/o Pneumonia - Procalcitonin - Zosyn - Vancomycin #. Asthma exacerbation - Albuterol - Methyl prednisolone #. DVT prophylaxis with Lovenox #. code Status: Full - Date & Time Date: 10/01/17 Time: 01:36
[2017-10-01] MEDS ORDERED: Multivitamin (MVI) 10 ML, Folic Acid 1 MG, Thiamine 100 MG in Dextrose 5%/0.45% NS 1,00... IV ONE ×2 (01:45→10:30)
[2017-10-01 02:13] LABS: PARTIAL THROMBOPLASTIN TIME 34.7 Seconds (25.6-37.1); PROTHROMBIN TIME 11.5 Seconds (9.8-13.1)
[2017-10-01 03:07] LABS: ABG ALLEN TEST YES; ARTERIAL BLOOD GAS HCO3 19.5 mmol/L (21-28); ARTERIAL BLOOD GAS O2 CONTENT 16.8 ML/dL (15-23); ARTERIAL BLOOD GAS O2 SAT 98.8 % (95-98); ARTERIAL BLOOD GAS PCO2 66 mm/Hg (35-45); ARTERIAL BLOOD GAS PH 7.15 (7.35-7.45); ARTERIAL BLOOD GAS PO2 112 mm/Hg (80-100)
[2017-10-01 03:14] LABS: BARBITURATES, UR NEGATIVE (NEGATIVE); BENZODIAZEPINES, UR NEGATIVE (NEGATIVE); OPIATES, UR NEGATIVE (NEGATIVE); PHENCYCLIDINE, UR NEGATIVE (NEGATIVE)
[2017-10-01 03:14] LABS: URINE BILIRUBIN NEGATIVE (NEGATIVE); URINE BLOOD NEGATIVE (NEGATIVE); URINE CLARITY CLEAR (Clear); URINE COLOR STRAW (YELLOW); URINE GLUCOSE (UA) 50 mg/dL (Normal); URINE LEUKOCYTE ESTERASE NEG Leu/uL (Negative); URINE NITRATE NEGATIVE (NEGATIVE); URINE PROTEIN NEGATIVE (NEGATIVE); URINE UROBILINOGEN 0.2-1.0 mg/dL (0.2-1.0)
[2017-10-01] MEDS ORDERED: methylPREDNISolone 40 MG in Sodium Chloride 0.9% 50 ML IVPB SCH (04:00)
[2017-10-01] MEDS ORDERED: Midazolam 2 MG/2 ML VIAL ONE (04:17)
[2017-10-01] MEDS ORDERED: Sodium Chloride 0.9% 1,000 ML IV SCH (04:30)
[2017-10-01] MEDS ORDERED: Propofol 10 mg/ml 1,000 MG/100 ML VIAL IV SCH (04:45)
[2017-10-01] MEDS: Albuterol 0.083% Inhal Sol (2.5 mg/3 mL) UD INH SCH ×3 (04:56→19:44)
--- NOTE | 2017-10-01 04:59 | PCM.PROC ---
Procedures Attestation:: I certify that I have explained the specified Operation(s) or Procedure(s), risks, benefits and reasonable alternatives to the Patient and/or other person responsible. The opportunity was given to ask questions and all questions answered - Intubation Time Out Performed: Yes Sedative: Versed Laryngoscope: Maria Victoria ET Tube Size: 7.5 ET Tube Uncuffed: No ET Tube Secured Locarion: Lips ET Tube Placement Confirmation: Visualized Passing Through Cords, Breath Sounds Equal Bilaterally, No Breath Sounds Over Epigastrum, Confirmation w/Capnometry Patient Tolerated Procedure: Well, No Complications Procedure Immediate Complications: None Additional comments: Intubated because of Hypercarbic Respiratory failure and very shallow respiration not compatible for BIPAP
[2017-10-01 05:19] LABS: ABG ALLEN TEST YES; ARTERIAL BLOOD GAS HCO3 20.1 mmol/L (21-28); ARTERIAL BLOOD GAS HEMOGLOBIN 11.4 g/dL (11.7-17.4); ARTERIAL BLOOD GAS O2 CAPACITY 16.4 mL/dL (16-24); ARTERIAL BLOOD GAS O2 CONTENT 16.2 ML/dL (15-23); ARTERIAL BLOOD GAS O2 SAT 98.9 % (95-98); ARTERIAL BLOOD GAS PCO2 48 mm/Hg (35-45); ARTERIAL BLOOD GAS PH 7.25 (7.35-7.45); ARTERIAL BLOOD GAS PO2 372 mm/Hg (80-100); ARTERIAL BLOOD GAS TCO2 22.5 mmol/L (22-28)
[2017-10-01] MEDS ORDERED: Midazolam 2 MG/2 ML VIAL IV ONE (05:43)
[2017-10-01] MEDS: MethylPREDNISolone 40 mg Vial IVP SCH ×2 (05:54→09:55)
--- NOTE | 2017-10-01 06:02 | CP.PCM.HP ---
History of Present Illness - History of Present Illness History of Present Illness: History obtained from chart/ ED physician/ Hospitalist 57 YO homeless female with PMH of depression who was seen in the ER on 09/29/16 for suicidal ideation with the plan of dying and taking pills. Patient was evaluated by tent worker and did not meet criteria for admission at that time and was advised to follow outpatient. - Early this morning patient was found by EMS unresponsive. She was known to have been drinking alcohol last night. There was an empty bottle of ambian 5mg which was found next to her, which was filled the same day and had 30 pills in it. In the ER the patient was noted to be hyperventilating and had some epistaxis. When she was brought up to the ICU she was having more shallow breaths and was intubated. X ray was done and confirmed the placement of the tube. PMH: Depression, Asthma,Tobacco abuse, Osteoporosis, Alcohol abuse PSH: Left humerus ORIF SH: Homeless, alcohol abuse, smoker 1/2 PPD x 30 years Medication: Lexapro had recently been increased to 20 mg, Ambian 5mg PO QHS FH: Unknown Allergies: Sulfa drugs PMD: Dr. Tata Penaloza Psychiatrist: Dr. Rehman Present on Admission - Present on Admission Any Indicators Present on Admission: No Past Patient History - Past Medical History & Family History Past Medical History?: Yes - Past Social History Smoking Status: Unknown If Ever Smoked Chewing Tobacco Use: No Cigar Use: No Alcohol: > 2 Drinks/Day Drugs: Denies Home Situation {Lives}: Homeless - CARDIAC Hx Hypertension: No - PULMONARY Hx Asthma: Yes Hx Bronchitis: Yes - NEUROLOGICAL Hx Seizures: No - HEENT Hx HEENT Problems: No - RENAL Hx Chronic Kidney Disease: No - ENDOCRINE/METABOLIC Hx Endocrine Disorders: No - HEMATOLOGICAL/ONCOLOGICAL Hx Human Immunodeficiency Virus (HIV): No - INTEGUMENTARY Hx Dermatological Problems: No - GASTROINTESTINAL Hx Gastrointestinal Disorders: No - GENITOURINARY/GYNECOLOGICAL Hx Sexually Transmitted Disorders: No - PSYCHIATRIC Hx Depression: Yes - SURGICAL HISTORY Hx Orthopedic Surgery: Yes (Left Humerus ORIF) - ANESTHESIA Hx Anesthesia: Yes Hx Anesthesia Reactions: No Meds Allergies/Adverse Reactions: Allergies Allergy/AdvReac Type Severity Reaction Status Date / Time Sulfa (Sulfonamide Allergy RASH Verified 10/01/17 00:06 Antibiotics) Physical Exam - Constitutional Appears: Toxic - Eye Exam Additional comments: Pupils equal and reacting sluggish to light - ENT Exam Additional comments: Dry blood in nostrils - Neck Exam Neck exam: Positive for: Normal Inspection - Respiratory Exam Respiratory Exam: Rales, Rhonchi Additional comments: coarse breath sounds - Cardiovascular Exam Cardiovascular Exam: REGULAR RHYTHM, +S1, +S2 - GI/Abdominal Exam GI & Abdominal Exam: Normal Bowel Sounds, Soft - Neurological Exam Additional comments: Responds to painful stimuli. Not alert or oriented. Flaccid upper and lower extremities Results - Vital Signs Recent Vital Signs: Last Vital Signs Temp 97.0 F L 10/01/17 01:33 Pulse 81 10/01/17 02:57 Resp 19 10/01/17 02:57 BP 92/50 L 10/01/17 02:57 Pulse Ox 100 10/01/17 02:57 - Labs Result Diagrams: 10/01/17 00:25 10/01/17 00:25 Labs: Laboratory Results - last 24 hr 10/01/17 10/01/17 10/01/17 00:10 00:25 00:25 WBC RBC Hgb Hct MCV MCH MCHC RDW Plt Count MPV Neut % (Auto) Lymph % (Auto) Wood % (Auto) Eos % (Auto) Baso % (Auto) Neut # (Auto) Lymph # (Auto) [place] # (Auto) Eos # (Auto) Baso # (Auto) PT INR APTT pCO2 pO2 HCO3 ABG pH ABG Total CO2 ABG O2 Saturation ABG O2 Content ABG Base Excess ABG Hemoglobin ABG Carboxyhemoglobin POC ABG HHb (Measured) ABG Methemoglobin ABG O2 Capacity Jones Test A-a O2 Difference Hgb O2 Saturation Vent Mode Mechanical Rate FiO2 Tidal Volume PEEP Crit Value Called To Crit Value Called By Crit Value Read Back Blood Gas Notified Time Sodium 131 L Potassium 4.1 Chloride 93 L Carbon Dioxide 22 Anion Gap 20 BUN 6 L Creatinine 0.5 L Est GFR ( Amer) > 60 Est GFR (Non-Af Amer) > 60 POC Glucose (mg/dL) 82 Random Glucose 91 Lactic Acid Calcium 8.6 Magnesium Total Bilirubin 0.3 AST 27 ALT 27 Alkaline Phosphatase 76 Total Protein 7.7 Albumin 4.5 Globulin 3.2 Albumin/Globulin Ratio 1.4 Urine Color Urine Clarity Urine pH Ur Specific [place] Urine Protein Urine Glucose (UA) Urine Ketones Urine Blood Urine Nitrate Urine Bilirubin Urine Urobilinogen Ur Leukocyte Esterase Urine RBC (Auto) Urine Microscopic WBC Salicylates < 1.0 Urine Opiates Screen Urine Methadone Screen Acetaminophen < 10.0 L Ur Barbiturates Screen Ur Phencyclidine Scrn Ur Amphetamines Screen U Benzodiazepines Scrn U Oth Cocaine Metabols U Cannabinoids Screen Alcohol, Quantitative 326 H* 10/01/17 10/01/17 10/01/17 00:25 01:52 01:52 WBC 6.7 RBC 4.22 Hgb 13.1 Hct 38.6 MCV 91.5 MCH 31.1 H MCHC 33.9 RDW 13.6 Plt Count 336 MPV 7.3 Neut % (Auto) 56.1 Lymph % (Auto) 30.8 Wood % (Auto) 8.7 Eos % (Auto) 3.5 Baso % (Auto) 0.9 Neut # (Auto) 3.8 Lymph # (Auto) 2.1 Wood # (Auto) 0.6 Eos # (Auto) 0.2 Baso # (Auto) 0.1 PT INR APTT pCO2 pO2 HCO3 ABG pH ABG Total CO2 ABG O2 Saturation ABG O2 Content ABG Base Excess ABG Hemoglobin ABG Carboxyhemoglobin POC ABG HHb (Measured) ABG Methemoglobin ABG O2 Capacity [place] Test A-a O2 Difference Hgb O2 Saturation Vent Mode Mechanical Rate FiO2 Tidal Volume PEEP Crit Value Called To Crit Value Called By Crit Value Read Back Blood Gas Notified Time Sodium Potassium Chloride Carbon Dioxide Anion Gap BUN Creatinine Est GFR ( Amer) Est GFR (Non-Af Amer) POC Glucose (mg/dL) Random Glucose Lactic Acid 1.0 Calcium Magnesium 1.8 Total Bilirubin AST ALT Alkaline Phosphatase Total Protein Albumin Globulin Albumin/Globulin Ratio Urine Color Urine Clarity Urine pH Ur Specific [place] Urine Protein Urine Glucose (UA) Urine Ketones Urine Blood Urine Nitrate Urine Bilirubin Urine Urobilinogen Ur Leukocyte Esterase Urine RBC (Auto) Urine Microscopic WBC Salicylates Urine Opiates Screen Urine Methadone Screen Acetaminophen Ur Barbiturates Screen Ur Phencyclidine Scrn Ur Amphetamines Screen U Benzodiazepines Scrn U Oth Cocaine Metabols U Cannabinoids Screen Alcohol, Quantitative 10/01/17 10/01/17 10/01/17 01:52 02:33 02:59 WBC RBC Hgb Hct MCV MCH MCHC RDW Plt Count MPV Neut % (Auto) Lymph % (Auto) [place] % (Auto) Eos % (Auto) Baso % (Auto) Neut # (Auto) Lymph # (Auto) [place] # (Auto) Eos # (Auto) Baso # (Auto) PT 11.5 INR 1.0 APTT 34.7 pCO2 66 H pO2 112 H HCO3 19.5 L ABG pH 7.15 L* ABG Total CO2 25.0 ABG O2 Saturation 98.8 H ABG O2 Content 16.8 ABG Base Excess -6.8 L ABG Hemoglobin 13.0 ABG Carboxyhemoglobin 5.6 H POC ABG HHb (Measured) 1.1 ABG Methemoglobin 2.0 ABG O2 Capacity 17.0 Jones Test Yes A-a O2 Difference 519.0 Hgb O2 Saturation 91.3 L Vent Mode Mechanical Rate FiO2 100.0 Tidal Volume PEEP Crit Value Called To Dr alex novoa Crit Value Called By Rohan Crit Value Read Back Y Blood Gas Notified Time 307 Sodium Potassium Chloride Carbon Dioxide Anion Gap BUN Creatinine Est GFR ( Amer) Est GFR (Non-Af Amer) POC Glucose (mg/dL) Random Glucose Lactic Acid Calcium Magnesium Total Bilirubin AST ALT Alkaline Phosphatase Total Protein Albumin Globulin Albumin/Globulin Ratio Urine Color Urine Clarity Urine pH Ur Specific [place] Urine Protein Urine Glucose (UA) Urine Ketones Urine Blood Urine Nitrate Urine Bilirubin Urine Urobilinogen Ur Leukocyte Esterase Urine RBC (Auto) Urine Microscopic WBC Salicylates Urine Opiates Screen Negative Urine Methadone Screen Negative Acetaminophen Ur Barbiturates Screen Negative Ur Phencyclidine Scrn Negative Ur Amphetamines Screen Negative U Benzodiazepines Scrn Negative U Oth Cocaine Metabols Negative U Cannabinoids Screen Negative Alcohol, Quantitative 10/01/17 10/01/17 03:08 05:02 WBC RBC Hgb Hct MCV MCH MCHC RDW Plt Count MPV Neut % (Auto) Lymph % (Auto) [place] % (Auto) Eos % (Auto) Baso % (Auto) Neut # (Auto) Lymph # (Auto) [place] # (Auto) Eos # (Auto) Baso # (Auto) PT INR APTT pCO2 48 H pO2 372 H HCO3 20.1 L ABG pH 7.25 L ABG Total CO2 22.5 ABG O2 Saturation 98.9 H ABG O2 Content 16.2 ABG Base Excess -6.2 L ABG Hemoglobin 11.4 L ABG Carboxyhemoglobin 2.7 H POC ABG HHb (Measured) 1.1 ABG Methemoglobin 1.1 ABG O2 Capacity 16.4 Jones Test Yes A-a O2 Difference 281.0 Hgb O2 Saturation 95.0 Vent Mode A/c Mechanical Rate 18 FiO2 100.0 Tidal Volume 500 PEEP 5 Crit Value Called To Crit Value Called By Crit Value Read Back Blood Gas Notified Time Sodium Potassium Chloride Carbon Dioxide Anion Gap BUN Creatinine Est GFR ( Amer) Est GFR (Non-Af Amer) POC Glucose (mg/dL) Random Glucose Lactic Acid Calcium Magnesium Total Bilirubin AST ALT Alkaline Phosphatase Total Protein Albumin Globulin Albumin/Globulin Ratio Urine Color Straw Urine Clarity Clear Urine pH 6.0 Ur Specific [place] 1.006 Urine Protein Negative Urine Glucose (UA) 50 Urine Ketones Negative Urine Blood Negative Urine Nitrate Negative Urine Bilirubin Negative Urine Urobilinogen 0.2-1.0 Ur Leukocyte Esterase Neg Urine RBC (Auto) < 1 Urine Microscopic WBC < 1 Salicylates Urine Opiates Screen Urine Methadone Screen Acetaminophen Ur Barbiturates Screen Ur Phencyclidine Scrn Ur Amphetamines Screen U Benzodiazepines Scrn U Oth Cocaine Metabols U Cannabinoids Screen Alcohol, Quantitative Assessment & Plan - Assessment and Plan (Free Text) Assessment: 1) Respiratory depression secondary to Ambian Overdose and alcohol intoxication - Mixed Metabolic and respiratory acidosis - On mechanical ventilation - PCO2: 48, HCO3: 30, PH, 9.25 - Alcohol: 326 - Poison control consulted 2) Pneumonia: Aspiration vs CAP - B/L infiltrate noted on my interpretation. F/U with official report. - C/W Vanco and Zosyn - No leukocytosis or left shift. Afebrile - Normal lactate 3) Alcohol abuse: - Blood alcohol level of 326 - Monitor for signs of withdrawl 4) DVT prophylaxis - SCD
[2017-10-01 06:23] VITALS: BMI 21.2
[2017-10-01] MEDS ORDERED: Sodium Chloride 3% for Inhalation 4 ML VIAL.NEB IH PRN (08:20)
[2017-10-01 08:46] LABS: BASO % 0.1 % (0.0-2.0); HEMOGLOBIN 11.8 g/dL (12.0-16.0); LYMPH # 0.5 K/uL (1.0-4.3); LYMPH % 5.8 % (20.0-40.0); MEAN CELL VOLUME 90.2 fl (81.0-99.0); MEAN CORPUSCULAR HEMOGLOBIN 31.4 pg (27.0-31.0); MEAN CORPUSCULAR HGB CONC 34.8 g/dL (33.0-37.0); MONO # 0.1 K/uL (0.0-0.8); MONO % 0.8 % (0.0-10.0); NEUT # 8.1 K/uL (1.8-7.0); NEUT % 93.3 % (50.0-75.0); NRBC % 0.1 % (0.0-0.0); PLATELET COUNT 258 K/uL (130-400); RBC 3.77 Mil/uL (3.80-5.20); RED CELL DISTRIBUTION WIDTH 13.1 % (11.5-14.5); WHITE BLOOD COUNT 8.7 K/uL (4.8-10.8)
[2017-10-01] MEDS ORDERED: Pneumococcal 23-Valent Vaccine IM ONE (09:00)
--- NOTE | 2017-10-01 09:11 | RAD ---
HISTORY: admit COMPARISON: 09/06/2017 FINDINGS: LUNGS: Interval diffuse bilateral hazy opacities left greater than right. PLEURA: Small left pleural effusion possible no pneumothorax seen CARDIOVASCULAR: Top-normal heart size. OSSEOUS STRUCTURES: Right humeral head fracture deformity with cystic and sclerotic change. Left humeral intramedullary leesa and 2 screws grossly intact VISUALIZED UPPER ABDOMEN: Normal. OTHER FINDINGS: None. IMPRESSION: Interval bilateral airspace opacities-bilateral infectious inflammatory infiltrates are 1 consideration. Small left pleural effusion possible
--- NOTE | 2017-10-01 09:14 | RAD ---
HISTORY: Post intbation COMPARISON: 05/31/2018 at 0055 hours FINDINGS: LUNGS: The prior bilateral hazy opacities are slightly less conspicuous. Lung volumes are slightly increased residual interstitial prominent lung markings present. Interval endotracheal tube insertion tip for approximately 2 cm from the justina. PLEURA: No current left pleural effusion is suggested. There is blunting of the right costophrenic angle and a small right pleural effusion is compatible with this. CARDIOVASCULAR: Top-normal heart size OSSEOUS STRUCTURES: Right humeral head fracture deformity with cystic and sclerotic change. Left humeral intramedullary leesa and 2 screws grossly intact VISUALIZED UPPER ABDOMEN: Normal. OTHER FINDINGS: None. IMPRESSION: Interval insertion endotracheal tube tip approximately 2 cm from the justina. Interval improved aeration of prior bilateral hazy airspace infiltrates. Currently ill-defined bilateral diffuse interstitial lung marking prominence is suggested. Interval small right pleural effusion probable
[2017-10-01 09:26] LABS: BLOOD UREA NITROGEN 8 mg/dl (7-17); GFR AFRICAN-AMERICAN > 60; GFR NON-AFRICAN AMERICAN > 60
[2017-10-01 09:54] LABS: LYMPHOCYTE 4 % (20-50); MONOCYTE 2 % (0-10); NEUTROPHIL 94 % (42-75); TOTAL CELLS COUNTED 100
[2017-10-01 09:55] LABS: OVALOCYTES SLIGHT; PLATELET ESTIMATE NORMAL (NORMAL); TEARDROP CELLS SLIGHT
[2017-10-01] MEDS: Piperacillin/Tazobact 3.375 GM in Sodium Chloride 0.9% 100 ML IVPB SCH ×3 (09:55→21:40)
--- NOTE | 2017-10-01 10:06 | CP.PCM.CON ---
Past Patient History - Past Medical History & Family History Past Medical History?: Yes - Past Social History Smoking Status: Unknown If Ever Smoked Chewing Tobacco Use: No Cigar Use: No Alcohol: > 2 Drinks/Day Drugs: Denies Home Situation {Lives}: Homeless - CARDIAC Hx Cardiac Disorders: No Hx Hypertension: No - PULMONARY Hx Asthma: Yes Hx Bronchitis: Yes - NEUROLOGICAL Hx Neurological Disorder: No Hx Seizures: No - HEENT Hx HEENT Problems: No - RENAL Hx Chronic Kidney Disease: No - ENDOCRINE/METABOLIC Hx Endocrine Disorders: No - HEMATOLOGICAL/ONCOLOGICAL Hx Blood Disorders: No Hx Human Immunodeficiency Virus (HIV): No - INTEGUMENTARY Hx Dermatological Problems: No - MUSCULOSKELETAL/RHEUMATOLOGICAL Hx Falls: Yes - GASTROINTESTINAL Hx Gastrointestinal Disorders: No - GENITOURINARY/GYNECOLOGICAL Hx Genitourinary Disorders: No Hx Sexually Transmitted Disorders: No - PSYCHIATRIC Hx Depression: Yes - SURGICAL HISTORY Hx Orthopedic Surgery: Yes (Left Humerus ORIF) - ANESTHESIA Hx Anesthesia: Yes Hx Anesthesia Reactions: No Meds Allergies/Adverse Reactions: Allergies Allergy/AdvReac Type Severity Reaction Status Date / Time Sulfa (Sulfonamide Allergy RASH Verified 10/01/17 00:06 Antibiotics) - Medications Medications: Current Medications Albuterol Sulfate (Albuterol 0.083% Inhal Ivy (2.5 Mg/3 Ml) Ud) 2.5 mg INH RQ4 JEFF Last Admin: 10/01/17 08:22 Dose: 2.5 mg Enoxaparin Sodium (Lovenox) 40 mg SC DAILY JEFF PRN Reason: Protocol Multivitamins/Vitamin C 10 ml/Folic Acid 1 mg/ Thiamine HCl 100 mg/ Dextrose/ Sodium Chloride 1,011.2 mls @ 150 mls/hr IV .Q6H45M ONE Stop: 10/01/17 17:14 Piperacillin Sod/Tazobactam (Sod 3.375 gm/ Sodium Chloride) 100 mls @ 100 mls/ hr IVPB Q6 JEFF PRN Reason: Protocol Last Admin: 10/01/17 09:55 Dose: 100 mls/hr Sodium Chloride (Sodium Chloride 0.9%) 1,000 mls @ 1,000 mls/hr IV .Q1H JEFF Stop: 10/02/17 04:29 Propofol (Diprivan) 1,000 mg in 100 mls @ 2.041 mls/hr IV .Q24H JEFF; 5 MCG/KG/ MIN PRN Reason: Protocol Stop: 10/02/17 04:33 Last Titration: 10/01/17 05:03 Dose: 0 mcg/kg/min, 0 mls/hr Vancomycin HCl 1 gm/ Sodium (Chloride) 250 mls @ 166.667 mls/hr IVPB Q12 JEFF PRN Reason: Protocol Last Admin: 10/01/17 06:02 Dose: 166.667 mls/hr Methylprednisolone (Solu-Medrol) 40 mg IVP Q6 JEFF Last Admin: 10/01/17 09:55 Dose: 40 mg Ondansetron HCl (Zofran Inj) 4 mg IVP Q4 PRN PRN Reason: Nausea/Vomiting Pantoprazole Sodium (Protonix Inj) 40 mg IVP DAILY [facility] Last Admin: 10/01/17 09:55 Dose: 40 mg Results - Vital Signs Recent Vital Signs: Last Vital Signs Temp 95.6 F L 10/01/17 08:00 Pulse 100 H 10/01/17 08:00 Resp 17 10/01/17 08:00 BP 96/64 L 10/01/17 08:00 Pulse Ox 100 10/01/17 08:00 - Labs Result Diagrams: 10/01/17 08:30 10/01/17 08:30 Labs: Laboratory Results - last 24 hr 10/01/17 10/01/17 10/01/17 00:10 00:25 00:25 WBC RBC Hgb Hct MCV MCH MCHC RDW Plt Count MPV Neut % (Auto) Lymph % (Auto) [place] % (Auto) Eos % (Auto) Baso % (Auto) Neut # (Auto) Lymph # (Auto) [place] # (Auto) Eos # (Auto) Baso # (Auto) Neutrophils % (Manual) Lymphocytes % (Manual) Monocytes % (Manual) Platelet Estimate Basophilic Stippling Tear Drop Cells Ovalocytes PT INR APTT pCO2 pO2 HCO3 ABG pH ABG Total CO2 ABG O2 Saturation ABG O2 Content ABG Base Excess ABG Hemoglobin ABG Carboxyhemoglobin POC ABG HHb (Measured) ABG Methemoglobin ABG O2 Capacity [place] Test A-a O2 Difference Hgb O2 Saturation Vent Mode Mechanical Rate FiO2 Tidal Volume PEEP Crit Value Called To Crit Value Called By Crit Value Read Back Blood Gas Notified Time Sodium 131 L Potassium 4.1 Chloride 93 L Carbon Dioxide 22 Anion Gap 20 BUN 6 L Creatinine 0.5 L Est GFR ( Amer) > 60 Est GFR (Non-Af Amer) > 60 POC Glucose (mg/dL) 82 Random Glucose 91 Lactic Acid Calcium 8.6 Magnesium Total Bilirubin 0.3 AST 27 ALT 27 Alkaline Phosphatase 76 Total Protein 7.7 Albumin 4.5 Globulin 3.2 Albumin/Globulin Ratio 1.4 Urine Color Urine Clarity Urine pH Ur Specific [place] Urine Protein Urine Glucose (UA) Urine Ketones Urine Blood Urine Nitrate Urine Bilirubin Urine Urobilinogen Ur Leukocyte Esterase Urine RBC (Auto) Urine Microscopic WBC Salicylates < 1.0 Urine Opiates Screen Urine Methadone Screen Acetaminophen < 10.0 L Ur Barbiturates Screen Ur Phencyclidine Scrn Ur Amphetamines Screen U Benzodiazepines Scrn U Oth Cocaine Metabols U Cannabinoids Screen Alcohol, Quantitative 326 H* Influenza Typ A,B (EIA) 10/01/17 10/01/17 10/01/17 00:25 01:52 01:52 WBC 6.7 RBC 4.22 Hgb 13.1 Hct 38.6 MCV 91.5 MCH 31.1 H MCHC 33.9 RDW 13.6 Plt Count 336 MPV 7.3 Neut % (Auto) 56.1 Lymph % (Auto) 30.8 [place] % (Auto) 8.7 Eos % (Auto) 3.5 Baso % (Auto) 0.9 Neut # (Auto) 3.8 Lymph # (Auto) 2.1 [place] # (Auto) 0.6 Eos # (Auto) 0.2 Baso # (Auto) 0.1 Neutrophils % (Manual) Lymphocytes % (Manual) Monocytes % (Manual) Platelet Estimate Basophilic Stippling Tear Drop Cells Ovalocytes PT INR APTT pCO2 pO2 HCO3 ABG pH ABG Total CO2 ABG O2 Saturation ABG O2 Content ABG Base Excess ABG Hemoglobin ABG Carboxyhemoglobin POC ABG HHb (Measured) ABG Methemoglobin ABG O2 Capacity [place] Test A-a O2 Difference Hgb O2 Saturation Vent Mode Mechanical Rate FiO2 Tidal Volume PEEP Crit Value Called To Crit Value Called By Crit Value Read Back Blood Gas Notified Time Sodium Potassium Chloride Carbon Dioxide Anion Gap BUN Creatinine Est GFR ( Amer) Est GFR (Non-Af Amer) POC Glucose (mg/dL) Random Glucose Lactic Acid 1.0 Calcium Magnesium 1.8 Total Bilirubin AST ALT Alkaline Phosphatase Total Protein Albumin Globulin Albumin/Globulin Ratio Urine Color Urine Clarity Urine pH Ur Specific [place] Urine Protein Urine Glucose (UA) Urine Ketones Urine Blood Urine Nitrate Urine Bilirubin Urine Urobilinogen Ur Leukocyte Esterase Urine RBC (Auto) Urine Microscopic WBC Salicylates Urine Opiates Screen Urine Methadone Screen Acetaminophen Ur Barbiturates Screen Ur Phencyclidine Scrn Ur Amphetamines Screen U Benzodiazepines Scrn U Oth Cocaine Metabols U Cannabinoids Screen Alcohol, Quantitative Influenza Typ A,B (EIA) 10/01/17 10/01/17 10/01/17 01:52 02:33 02:59 WBC RBC Hgb Hct MCV MCH MCHC RDW Plt Count MPV Neut % (Auto) Lymph % (Auto) [place] % (Auto) Eos % (Auto) Baso % (Auto) Neut # (Auto) Lymph # (Auto) [place] # (Auto) Eos # (Auto) Baso # (Auto) Neutrophils % (Manual) Lymphocytes % (Manual) Monocytes % (Manual) Platelet Estimate Basophilic Stippling Tear Drop Cells Ovalocytes PT 11.5 INR 1.0 APTT 34.7 pCO2 66 H pO2 112 H HCO3 19.5 L ABG pH 7.15 L* ABG Total CO2 25.0 ABG O2 Saturation 98.8 H ABG O2 Content 16.8 ABG Base Excess -6.8 L ABG Hemoglobin 13.0 ABG Carboxyhemoglobin 5.6 H POC ABG HHb (Measured) 1.1 ABG Methemoglobin 2.0 ABG O2 Capacity 17.0 Jones Test Yes A-a O2 Difference 519.0 Hgb O2 Saturation 91.3 L Vent Mode Mechanical Rate FiO2 100.0 Tidal Volume PEEP Crit Value Called To Dr alex novoa Crit Value Called By 292 Crit Value Read Back Y Blood Gas Notified Time 307 Sodium Potassium Chloride Carbon Dioxide Anion Gap BUN Creatinine Est GFR ( Amer) Est GFR (Non-Af Amer) POC Glucose (mg/dL) Random Glucose Lactic Acid Calcium Magnesium Total Bilirubin AST ALT Alkaline Phosphatase Total Protein Albumin Globulin Albumin/Globulin Ratio Urine Color Urine Clarity Urine pH Ur Specific [place] Urine Protein Urine Glucose (UA) Urine Ketones Urine Blood Urine Nitrate Urine Bilirubin Urine Urobilinogen Ur Leukocyte Esterase Urine RBC (Auto) Urine Microscopic WBC Salicylates Urine Opiates Screen Negative Urine Methadone Screen Negative Acetaminophen Ur Barbiturates Screen Negative Ur Phencyclidine Scrn Negative Ur Amphetamines Screen Negative U Benzodiazepines Scrn Negative U Oth Cocaine Metabols Negative U Cannabinoids Screen Negative Alcohol, Quantitative Influenza Typ A,B (EIA) 10/01/17 10/01/17 10/01/17 03:08 05:02 06:54 WBC RBC Hgb Hct MCV MCH MCHC RDW Plt Count MPV Neut % (Auto) Lymph % (Auto) [place] % (Auto) Eos % (Auto) Baso % (Auto) Neut # (Auto) Lymph # (Auto) [place] # (Auto) Eos # (Auto) Baso # (Auto) Neutrophils % (Manual) Lymphocytes % (Manual) Monocytes % (Manual) Platelet Estimate Basophilic Stippling Tear Drop Cells Ovalocytes PT INR APTT pCO2 48 H pO2 372 H HCO3 20.1 L ABG pH 7.25 L ABG Total CO2 22.5 ABG O2 Saturation 98.9 H ABG O2 Content 16.2 ABG Base Excess -6.2 L ABG Hemoglobin 11.4 L ABG Carboxyhemoglobin 2.7 H POC ABG HHb (Measured) 1.1 ABG Methemoglobin 1.1 ABG O2 Capacity 16.4 Jones Test Yes A-a O2 Difference 281.0 Hgb O2 Saturation 95.0 Vent Mode A/c Mechanical Rate 18 FiO2 100.0 Tidal Volume 500 PEEP 5 Crit Value Called To Crit Value Called By Crit Value Read Back Blood Gas Notified Time Sodium Potassium Chloride Carbon Dioxide Anion Gap BUN Creatinine Est GFR ( Amer) Est GFR (Non-Af Amer) POC Glucose (mg/dL) Random Glucose Lactic Acid Calcium Magnesium Total Bilirubin AST ALT Alkaline Phosphatase Total Protein Albumin Globulin Albumin/Globulin Ratio Urine Color Straw Urine Clarity Clear Urine pH 6.0 Ur Specific [place] 1.006 Urine Protein Negative Urine Glucose (UA) 50 Urine Ketones Negative Urine Blood Negative Urine Nitrate Negative Urine Bilirubin Negative Urine Urobilinogen 0.2-1.0 Ur Leukocyte Esterase Neg Urine RBC (Auto) < 1 Urine Microscopic WBC < 1 Salicylates Urine Opiates Screen Urine Methadone Screen Acetaminophen Ur Barbiturates Screen Ur Phencyclidine Scrn Ur Amphetamines Screen U Benzodiazepines Scrn U Oth Cocaine Metabols U Cannabinoids Screen Alcohol, Quantitative Influenza Typ A,B (EIA) Negative for flu a/b 10/01/17 10/01/17 08:30 08:30 WBC 8.7 RBC 3.77 L Hgb 11.8 L Hct 34.0 MCV 90.2 MCH 31.4 H MCHC 34.8 RDW 13.1 Plt Count 258 MPV 7.0 L Neut % (Auto) 93.3 H Lymph % (Auto) 5.8 L [place] % (Auto) 0.8 Eos % (Auto) 0.0 Baso % (Auto) 0.1 Neut # (Auto) 8.1 H Lymph # (Auto) 0.5 L [place] # (Auto) 0.1 Eos # (Auto) 0.0 Baso # (Auto) 0.0 Neutrophils % (Manual) 94 H Lymphocytes % (Manual) 4 L Monocytes % (Manual) 2 Platelet Estimate Normal Basophilic Stippling Slight Tear Drop Cells Slight Ovalocytes Slight PT INR APTT pCO2 pO2 HCO3 ABG pH ABG Total CO2 ABG O2 Saturation ABG O2 Content ABG Base Excess ABG Hemoglobin ABG Carboxyhemoglobin POC ABG HHb (Measured) ABG Methemoglobin ABG O2 Capacity [place] Test A-a O2 Difference Hgb O2 Saturation Vent Mode Mechanical Rate FiO2 Tidal Volume PEEP Crit Value Called To Crit Value Called By Crit Value Read Back Blood Gas Notified Time Sodium 128 L Potassium 4.2 Chloride 99 Carbon Dioxide 18 L Anion Gap 15 BUN 8 Creatinine 0.5 L Est GFR ( Amer) > 60 Est GFR (Non-Af Amer) > 60 POC Glucose (mg/dL) Random Glucose 133 H Lactic Acid Calcium 7.0 L Magnesium Total Bilirubin AST ALT Alkaline Phosphatase Total Protein Albumin Globulin Albumin/Globulin Ratio Urine Color Urine Clarity Urine pH Ur Specific [place] Urine Protein Urine Glucose (UA) Urine Ketones Urine Blood Urine Nitrate Urine Bilirubin Urine Urobilinogen Ur Leukocyte Esterase Urine RBC (Auto) Urine Microscopic WBC Salicylates Urine Opiates Screen Urine Methadone Screen Acetaminophen Ur Barbiturates Screen Ur Phencyclidine Scrn Ur Amphetamines Screen U Benzodiazepines Scrn U Oth Cocaine Metabols U Cannabinoids Screen Alcohol, Quantitative Influenza Typ A,B (EIA)
[2017-10-01] MEDS: Enoxaparin 40 mg Syringe SC SCH (10:11)
--- NOTE | 2017-10-01 10:13 | CT ---
PROCEDURE: CT HEAD WITHOUT CONTRAST. HISTORY: Found Unresponsive COMPARISON: 08/27/2013 TECHNIQUE: Axial computed tomography images were obtained through the head/brain without intravenous contrast. Radiation dose: Total exam DLP = 900.64 mGy-cm. This CT exam was performed using one or more of the following dose reduction techniques: Automated exposure control, adjustment of the mA and/or kV according to patient size, and/or use of iterative reconstruction technique. FINDINGS: HEMORRHAGE: No intracranial hemorrhage. BRAIN: No mass effect or edema. Minimal diffuse atrophy consistent with patient age. Mild periventricular white matter lucency consistent with chronic microvascular white matter ischemic change. No evidence of acute infarct. VENTRICLES: Unremarkable. No hydrocephalus. CALVARIUM: Unremarkable. PARANASAL SINUSES: Chronic pansinusitis. Mucous secretions noted in left maxillary antrum. MASTOID AIR CELLS: Unremarkable as visualized. No inflammatory changes. OTHER FINDINGS: None. IMPRESSION: No intracranial mass, hemorrhage or evidence of acute infarct. Age related atrophy and chronic white matter ischemic change. Chronic pansinusitis.
[2017-10-01] MEDS ORDERED: THIAMINE IV SCH ×2 (10:15→10:45)
[2017-10-01] MEDS ORDERED: FOLIC ACID IV SCH ×2 (10:15→10:45)
[2017-10-01] MEDS ORDERED: [UNRECOGNIZED DRUG - OTHER] IV SCH ×2 (10:15→10:45)
[2017-10-01] MEDS ORDERED: MULTIVITAMIN IV SCH ×2 (10:15→10:45)
--- NOTE | 2017-10-01 10:18 | CP.CCUPN ---
<АндрейhaileyArcelia - Last Filed: 10/01/17 12:44> CCU Subjective - Physician Review Subjective (Free Text): 10/01/17 History obtained from Chart, and Provider's notes, because patient is intubated , and still lethargic. 57 y/o female with PMHx of Alcoholism and Depression admitted with Altered mental status after an Ambien Overdose, associated with alcohol intake. Noted that patient presented in ER on 09/29/17 complaining of suicidal ideation with plan, was evaluated bby Psych advanced clinical specialist, and did not meet criteria for admission at that time, and was advised outpatient f/u. As per records patient was found by EMS unresponsive early this morning. She was known to have been drinking alcohol last night. There was an empty bottle of Ambien 5mg which was found next to her, which was filled the same day and had 30 pills in it. In the ER the patient was noted to be hyperventilating and had some epistaxis. When she was brought up to the ICU she was having more shallow breaths and was intubated. Patient is seen and examined with movie producer Attending, Dr. Murphy, during rounds this morning. Patient is intubated, and off of sedation ( propofol), slowly opening her eyes to verbal stimuli. On PRVC A/C rate 18/TV 500/ PEEP 5/ FiO2 100 %. Will start ventilator weaning process as tolerated. I&O reviewed. Critical Care Time Spent (in minutes): 45 CCU Objective - Vital Signs / Intake & Output Vital Signs (Last 4 hours): Vital Signs Temp Pulse Resp BP Pulse Ox 10/01/17 08:00 95.6 F L 100 H 17 96/64 L 100 10/01/17 07:00 65 18 103/67 100 Intake and Output (Last 8hrs): Intake & Output 09/30/17 10/01/17 10/01/17 22:59 06:59 14:59 Intake Total 1750 Output Total 700 Balance 1050 Weight 116 lb Intake: IV 500 Intake, Piggyback 1250 Output: Urine 700 Urethral (Garcia) 700 - Physical Exam Physical Exam Limitations: Positive for: Altered Mental Status Pupils: Positive for: PERRL Mouth: Positive for: Moist Mucous Membranes Respiratory/Chest: Positive for: Clear to Auscultation. Negative for: Respiratory Distress, Wheezes, Rales, Rhonchi Abdomen: Positive for: Normal Bowel Sounds. Negative for: Tenderness, Distention Upper Extremity: Negative for: Edema, Swelling Lower Extremity: Negative for: Edema, CALF TENDERNESS Skin: Positive for: Warm, Dry Other physical findings (Free Text): intubated, lethargic - Medications Active Medications: Active Medications Generic Name Dose Route Start Last Admin Trade Name Freq PRN Reason Stop Dose Admin Albuterol Sulfate 2.5 mg 10/01/17 04:00 10/01/17 08:22 Albuterol 0.083% Inhal Ivy (2.5 Mg/3 Ml) Ud INH 2.5 mg RQ4 JEFF Administration Enoxaparin Sodium 40 mg 10/01/17 09:00 Lovenox SC DAILY JEFF Protocol Multivitamins/Vitamin C 10 ml/ 1,011.2 mls @ 150 mls/hr 10/01/17 10:30 Folic Acid 1 mg/ Thiamine HCl IV 10/01/17 17:14 100 mg/ Dextrose/Sodium .[id number] ONE Chloride Piperacillin Sod/Tazobactam 100 mls @ 100 mls/hr 10/01/17 10:00 10/01/17 09: 55 Sod 3.375 gm/ Sodium Chloride IVPB 100 mls/hr Q6 JEFF Administration Protocol Sodium Chloride 1,000 mls @ 1,000 mls/hr 10/01/17 04:30 Sodium Chloride 0.9% IV 10/02/17 04:29 .Q1H JEFF Vancomycin HCl 1 gm/ Sodium 250 mls @ 166.667 mls/hr 10/01/17 05:45 10/01/17 06:02 Chloride IVPB 166.667 mls/hr Q12 JEFF Administration Protocol Methylprednisolone 40 mg 10/01/17 04:00 10/01/17 09:55 Solu-Medrol IVP 40 mg Q6 JEFF Administration Ondansetron HCl 4 mg 10/01/17 02:14 Zofran Inj IVP Q4 PRN Nausea/Vomiting Pantoprazole Sodium 40 mg 10/01/17 09:00 10/01/17 09:55 Protonix Inj IVP 40 mg DAILY JEFF Administration - Patient Studies Lab Studies: Lab Studies 10/01/17 10/01/17 10/01/17 Range/Units 08:30 08:30 06:54 WBC 8.7 (4.8-10.8) K/uL RBC 3.77 L (3.80-5.20) Mil/uL Hgb 11.8 L (12.0-16.0) g/dL Hct 34.0 (34.0-47.0) % MCV 90.2 (81.0-99.0) fl MCH 31.4 H (27.0-31.0) pg MCHC 34.8 (33.0-37.0) g/dL RDW 13.1 (11.5-14.5) % Plt Count 258 (130-400) K/uL MPV 7.0 L (7.2-11.7) fl Neut % (Auto) 93.3 H (50.0-75.0) % Lymph % (Auto) 5.8 L (20.0-40.0) % Kendall % (Auto) 0.8 (0.0-10.0) % Eos % (Auto) 0.0 (0.0-4.0) % Baso % (Auto) 0.1 (0.0-2.0) % Neut # (Auto) 8.1 H (1.8-7.0) K/uL Lymph # (Auto) 0.5 L (1.0-4.3) K/uL [place] # (Auto) 0.1 (0.0-0.8) K/uL Eos # (Auto) 0.0 (0.0-0.7) K/uL Baso # (Auto) 0.0 (0.0-0.2) K/uL Neutrophils % (Manual) 94 H (42-75) % Lymphocytes % (Manual) 4 L (20-50) % Monocytes % (Manual) 2 (0-10) % Platelet Estimate Normal (NORMAL) Basophilic Stippling Slight Tear Drop Cells Slight Ovalocytes Slight PT (9.8-13.1) Seconds INR (0.9-1.2) APTT (25.6-37.1) Seconds pCO2 (35-45) mm/Hg pO2 (80-100) mm/Hg HCO3 (21-28) mmol/L ABG pH (7.35-7.45) ABG Total CO2 (22-28) mmol/L ABG O2 Saturation (95-98) % ABG O2 Content (15-23) ML/dL ABG Base Excess (-2.0-3.0) mmol/L ABG Hemoglobin (11.7-17.4) g/dL ABG Carboxyhemoglobin (0.5-1.5) % POC ABG HHb (Measured) (0.0-5.0) % ABG Methemoglobin (0.0-3.0) % ABG O2 Capacity (16-24) mL/dL Jones Test A-a O2 Difference mm/Hg Hgb O2 Saturation (95.0-98.0) % Vent Mode Mechanical Rate FiO2 % Tidal Volume PEEP Crit Value Called To Crit Value Called By Crit Value Read Back Blood Gas Notified Time Sodium 128 L (132-148) mmol/l Potassium 4.2 (3.6-5.0) MMOL/L Chloride 99 (98-107) mmol/L Carbon Dioxide 18 L (22-30) mmol/L Anion Gap 15 (10-20) BUN 8 (7-17) mg/dl Creatinine 0.5 L (0.7-1.2) mg/dl Est GFR ( Amer) > 60 Est GFR (Non-Af Amer) > 60 POC Glucose (mg/dL) (65-110) mg/dL Random Glucose 133 H (65-105) mg/dL Lactic Acid (0.7-2.1) MMOL/L Calcium 7.0 L (8.4-10.2) mg/dL Magnesium (1.6-2.3) MG/DL Total Bilirubin (0.2-1.3) mg/dl AST (14-36) U/L ALT (9-52) U/L Alkaline Phosphatase (38-126) U/L Total Protein (6.3-8.2) G/DL Albumin (3.5-5.0) g/dL Globulin (2.2-3.9) gm/dL Albumin/Globulin Ratio (1.0-2.1) Urine Color (YELLOW) Urine Clarity (Clear) Urine pH (5.0-8.0) Ur Specific [place] (1.003-1.030) Urine Protein (NEGATIVE) mg/dL Urine Glucose (UA) (Normal) mg/dL Urine Ketones (NEGATIVE) mg/dL Urine Blood (NEGATIVE) Urine Nitrate (NEGATIVE) Urine Bilirubin (NEGATIVE) Urine Urobilinogen (0.2-1.0) mg/dL Ur Leukocyte Esterase (Negative) Mitchel/uL Urine RBC (Auto) (0-3) /hpf Urine Microscopic WBC (0-5) /hpf Salicylates mg/dl Urine Opiates Screen (NEGATIVE) Urine Methadone Screen (NEGATIVE) Acetaminophen (10.0-30.0) ug/ml Ur Barbiturates Screen (NEGATIVE) Ur Phencyclidine Scrn (NEGATIVE) Ur Amphetamines Screen (NEGATIVE) U Benzodiazepines Scrn (NEGATIVE) U Oth Cocaine Metabols (NEGATIVE) U Cannabinoids Screen (NEGATIVE) Alcohol, Quantitative (0-10) mg/dl Influenza Typ A,B (EIA) Negative for flu a/b (NEGATIVE) 10/01/17 10/01/17 10/01/17 Range/Units 05:02 03:08 02:59 WBC (4.8-10.8) K/uL RBC (3.80-5.20) Mil/uL Hgb (12.0-16.0) g/dL Hct (34.0-47.0) % MCV (81.0-99.0) fl MCH (27.0-31.0) pg MCHC (33.0-37.0) g/dL RDW (11.5-14.5) % Plt Count (130-400) K/uL MPV (7.2-11.7) fl Neut % (Auto) (50.0-75.0) % Lymph % (Auto) (20.0-40.0) % Kendall % (Auto) (0.0-10.0) % Eos % (Auto) (0.0-4.0) % Baso % (Auto) (0.0-2.0) % Neut # (Auto) (1.8-7.0) K/uL Lymph # (Auto) (1.0-4.3) K/uL Kend[place] # (Auto) (0.0-0.8) K/uL Eos # (Auto) (0.0-0.7) K/uL Baso # (Auto) (0.0-0.2) K/uL Neutrophils % (Manual) (42-75) % Lymphocytes % (Manual) (20-50) % Monocytes % (Manual) (0-10) % Platelet Estimate (NORMAL) Basophilic Stippling Tear Drop Cells Ovalocytes PT (9.8-13.1) Seconds INR (0.9-1.2) APTT (25.6-37.1) Seconds pCO2 48 H 66 H (35-45) mm/Hg pO2 372 H 112 H (80-100) mm/Hg HCO3 20.1 L 19.5 L (21-28) mmol/L ABG pH 7.25 L 7.15 L* (7.35-7.45) ABG Total CO2 22.5 25.0 (22-28) mmol/L ABG O2 Saturation 98.9 H 98.8 H (95-98) % ABG O2 Content 16.2 16.8 (15-23) ML/dL ABG Base Excess -6.2 L -6.8 L (-2.0-3.0) mmol/L ABG Hemoglobin 11.4 L 13.0 (11.7-17.4) g/dL ABG Carboxyhemoglobin 2.7 H 5.6 H (0.5-1.5) % POC ABG HHb (Measured) 1.1 1.1 (0.0-5.0) % ABG Methemoglobin 1.1 2.0 (0.0-3.0) % ABG O2 Capacity 16.4 17.0 (16-24) mL/dL Jones Test Yes Yes A-a O2 Difference 281.0 519.0 mm/Hg Hgb O2 Saturation 95.0 91.3 L (95.0-98.0) % Vent Mode A/c Mechanical Rate 18 FiO2 100.0 100.0 % Tidal Volume 500 PEEP 5 Crit Value Called To Dr alex novoa Crit Value Called By 292 Crit Value Read Back Y Blood Gas Notified Time 307 Sodium (132-148) mmol/l Potassium (3.6-5.0) MMOL/L Chloride (98-107) mmol/L Carbon Dioxide (22-30) mmol/L Anion Gap (10-20) BUN (7-17) mg/dl Creatinine (0.7-1.2) mg/dl Est GFR ( Amer) Est GFR (Non-Af Amer) POC Glucose (mg/dL) (65-110) mg/dL Random Glucose (65-105) mg/dL Lactic Acid (0.7-2.1) MMOL/L Calcium (8.4-10.2) mg/dL Magnesium (1.6-2.3) MG/DL Total Bilirubin (0.2-1.3) mg/dl AST (14-36) U/L ALT (9-52) U/L Alkaline Phosphatase (38-126) U/L Total Protein (6.3-8.2) G/DL Albumin (3.5-5.0) g/dL Globulin (2.2-3.9) gm/dL Albumin/Globulin Ratio (1.0-2.1) Urine Color Straw (YELLOW) Urine Clarity Clear (Clear) Urine pH 6.0 (5.0-8.0) Ur Specific [place] 1.006 (1.003-1.030) Urine Protein Negative (NEGATIVE) mg/dL Urine Glucose (UA) 50 (Normal) mg/dL Urine Ketones Negative (NEGATIVE) mg/dL Urine Blood Negative (NEGATIVE) Urine Nitrate Negative (NEGATIVE) Urine Bilirubin Negative (NEGATIVE) Urine Urobilinogen 0.2-1.0 (0.2-1.0) mg/dL Ur Leukocyte Esterase Neg (Negative) Mitchel/uL Urine RBC (Auto) < 1 (0-3) /hpf Urine Microscopic WBC < 1 (0-5) /hpf Salicylates mg/dl Urine Opiates Screen (NEGATIVE) Urine Methadone Screen (NEGATIVE) Acetaminophen (10.0-30.0) ug/ml Ur Barbiturates Screen (NEGATIVE) Ur Phencyclidine Scrn (NEGATIVE) Ur Amphetamines Screen (NEGATIVE) U Benzodiazepines Scrn (NEGATIVE) U Oth Cocaine Metabols (NEGATIVE) U Cannabinoids Screen (NEGATIVE) Alcohol, Quantitative (0-10) mg/dl Influenza Typ A,B (EIA) (NEGATIVE) 10/01/17 10/01/17 10/01/17 Range/Units 02:33 01:52 01:52 WBC (4.8-10.8) K/uL RBC (3.80-5.20) Mil/uL Hgb (12.0-16.0) g/dL Hct (34.0-47.0) % MCV (81.0-99.0) fl MCH (27.0-31.0) pg MCHC (33.0-37.0) g/dL RDW (11.5-14.5) % Plt Count (130-400) K/uL MPV (7.2-11.7) fl Neut % (Auto) (50.0-75.0) % Lymph % (Auto) (20.0-40.0) % Kend[place] % (Auto) (0.0-10.0) % Eos % (Auto) (0.0-4.0) % Baso % (Auto) (0.0-2.0) % Neut # (Auto) (1.8-7.0) K/uL Lymph # (Auto) (1.0-4.3) K/uL [place] # (Auto) (0.0-0.8) K/uL Eos # (Auto) (0.0-0.7) K/uL Baso # (Auto) (0.0-0.2) K/uL Neutrophils % (Manual) (42-75) % Lymphocytes % (Manual) (20-50) % Monocytes % (Manual) (0-10) % Platelet Estimate (NORMAL) Basophilic Stippling Tear Drop Cells Ovalocytes PT 11.5 (9.8-13.1) Seconds INR 1.0 (0.9-1.2) APTT 34.7 (25.6-37.1) Seconds pCO2 (35-45) mm/Hg pO2 (80-100) mm/Hg HCO3 (21-28) mmol/L ABG pH (7.35-7.45) ABG Total CO2 (22-28) mmol/L ABG O2 Saturation (95-98) % ABG O2 Content (15-23) ML/dL ABG Base Excess (-2.0-3.0) mmol/L ABG Hemoglobin (11.7-17.4) g/dL ABG Carboxyhemoglobin (0.5-1.5) % POC ABG HHb (Measured) (0.0-5.0) % ABG Methemoglobin (0.0-3.0) % ABG O2 Capacity (16-24) mL/dL Jones Test A-a O2 Difference mm/Hg Hgb O2 Saturation (95.0-98.0) % Vent Mode Mechanical Rate FiO2 % Tidal Volume PEEP Crit Value Called To Crit Value Called By Crit Value Read Back Blood Gas Notified Time Sodium (132-148) mmol/l Potassium (3.6-5.0) MMOL/L Chloride (98-107) mmol/L Carbon Dioxide (22-30) mmol/L Anion Gap (10-20) BUN (7-17) mg/dl Creatinine (0.7-1.2) mg/dl Est GFR ( Amer) Est GFR (Non-Af Amer) POC Glucose (mg/dL) (65-110) mg/dL Random Glucose (65-105) mg/dL Lactic Acid (0.7-2.1) MMOL/L Calcium (8.4-10.2) mg/dL Magnesium 1.8 (1.6-2.3) MG/DL Total Bilirubin (0.2-1.3) mg/dl AST (14-36) U/L ALT (9-52) U/L Alkaline Phosphatase (38-126) U/L Total Protein (6.3-8.2) G/DL Albumin (3.5-5.0) g/dL Globulin (2.2-3.9) gm/dL Albumin/Globulin Ratio (1.0-2.1) Urine Color (YELLOW) Urine Clarity (Clear) Urine pH (5.0-8.0) Ur Specific [place] (1.003-1.030) Urine Protein (NEGATIVE) mg/dL Urine Glucose (UA) (Normal) mg/dL Urine Ketones (NEGATIVE) mg/dL Urine Blood (NEGATIVE) Urine Nitrate (NEGATIVE) Urine Bilirubin (NEGATIVE) Urine Urobilinogen (0.2-1.0) mg/dL Ur Leukocyte Esterase (Negative) Mitchel/uL Urine RBC (Auto) (0-3) /hpf Urine Microscopic WBC (0-5) /hpf Salicylates mg/dl Urine Opiates Screen Negative (NEGATIVE) Urine Methadone Screen Negative (NEGATIVE) Acetaminophen (10.0-30.0) ug/ml Ur Barbiturates Screen Negative (NEGATIVE) Ur Phencyclidine Scrn Negative (NEGATIVE) Ur Amphetamines Screen Negative (NEGATIVE) U Benzodiazepines Scrn Negative (NEGATIVE) U Oth Cocaine Metabols Negative (NEGATIVE) U Cannabinoids Screen Negative (NEGATIVE) Alcohol, Quantitative (0-10) mg/dl Influenza Typ A,B (EIA) (NEGATIVE) 02/28/18 02/28/18 02/28/18 Range/Units 01:52 00:25 00:25 WBC 6.7 (4.8-10.8) K/uL RBC 4.22 (3.80-5.20) Mil/uL Hgb 13.1 (12.0-16.0) g/dL Hct 38.6 (34.0-47.0) % MCV 91.5 (81.0-99.0) fl MCH 31.1 H (27.0-31.0) pg MCHC 33.9 (33.0-37.0) g/dL RDW 13.6 (11.5-14.5) % Plt Count 336 (130-400) K/uL MPV 7.3 (7.2-11.7) fl Neut % (Auto) 56.1 (50.0-75.0) % Lymph % (Auto) 30.8 (20.0-40.0) % Kend[place] % (Auto) 8.7 (0.0-10.0) % Eos % (Auto) 3.5 (0.0-4.0) % Baso % (Auto) 0.9 (0.0-2.0) % Neut # (Auto) 3.8 (1.8-7.0) K/uL Lymph # (Auto) 2.1 (1.0-4.3) K/uL Kend[place] # (Auto) 0.6 (0.0-0.8) K/uL Eos # (Auto) 0.2 (0.0-0.7) K/uL Baso # (Auto) 0.1 (0.0-0.2) K/uL Neutrophils % (Manual) (42-75) % Lymphocytes % (Manual) (20-50) % Monocytes % (Manual) (0-10) % Platelet Estimate (NORMAL) Basophilic Stippling Tear Drop Cells Ovalocytes PT (9.8-13.1) Seconds INR (0.9-1.2) APTT (25.6-37.1) Seconds pCO2 (35-45) mm/Hg pO2 (80-100) mm/Hg HCO3 (21-28) mmol/L ABG pH (7.35-7.45) ABG Total CO2 (22-28) mmol/L ABG O2 Saturation (95-98) % ABG O2 Content (15-23) ML/dL ABG Base Excess (-2.0-3.0) mmol/L ABG Hemoglobin (11.7-17.4) g/dL ABG Carboxyhemoglobin (0.5-1.5) % POC ABG HHb (Measured) (0.0-5.0) % ABG Methemoglobin (0.0-3.0) % ABG O2 Capacity (16-24) mL/dL Jones Test A-a O2 Difference mm/Hg Hgb O2 Saturation (95.0-98.0) % Vent Mode Mechanical Rate FiO2 % Tidal Volume PEEP Crit Value Called To Crit Value Called By Crit Value Read Back Blood Gas Notified Time Sodium 131 L (132-148) mmol/l Potassium 4.1 (3.6-5.0) MMOL/L Chloride 93 L (98-107) mmol/L Carbon Dioxide 22 (22-30) mmol/L Anion Gap 20 (10-20) BUN 6 L (7-17) mg/dl Creatinine 0.5 L (0.7-1.2) mg/dl Est GFR ( Amer) > 60 Est GFR (Non-Af Amer) > 60 POC Glucose (mg/dL) (65-110) mg/dL Random Glucose 91 (65-105) mg/dL Lactic Acid 1.0 (0.7-2.1) MMOL/L Calcium 8.6 (8.4-10.2) mg/dL Magnesium (1.6-2.3) MG/DL Total Bilirubin 0.3 (0.2-1.3) mg/dl AST 27 (14-36) U/L ALT 27 (9-52) U/L Alkaline Phosphatase 76 (38-126) U/L Total Protein 7.7 (6.3-8.2) G/DL Albumin 4.5 (3.5-5.0) g/dL Globulin 3.2 (2.2-3.9) gm/dL Albumin/Globulin Ratio 1.4 (1.0-2.1) Urine Color (YELLOW) Urine Clarity (Clear) Urine pH (5.0-8.0) Ur Specific [place] (1.003-1.030) Urine Protein (NEGATIVE) mg/dL Urine Glucose (UA) (Normal) mg/dL Urine Ketones (NEGATIVE) mg/dL Urine Blood (NEGATIVE) Urine Nitrate (NEGATIVE) Urine Bilirubin (NEGATIVE) Urine Urobilinogen (0.2-1.0) mg/dL Ur Leukocyte Esterase (Negative) Mitchel/uL Urine RBC (Auto) (0-3) /hpf Urine Microscopic WBC (0-5) /hpf Salicylates mg/dl Urine Opiates Screen (NEGATIVE) Urine Methadone Screen (NEGATIVE) Acetaminophen (10.0-30.0) ug/ml Ur Barbiturates Screen (NEGATIVE) Ur Phencyclidine Scrn (NEGATIVE) Ur Amphetamines Screen (NEGATIVE) U Benzodiazepines Scrn (NEGATIVE) U Oth Cocaine Metabols (NEGATIVE) U Cannabinoids Screen (NEGATIVE) Alcohol, Quantitative 326 H* (0-10) mg/dl Influenza Typ A,B (EIA) (NEGATIVE) 10/01/17 10/01/17 Range/Units 00:25 00:10 WBC (4.8-10.8) K/uL RBC (3.80-5.20) Mil/uL Hgb (12.0-16.0) g/dL Hct (34.0-47.0) % MCV (81.0-99.0) fl MCH (27.0-31.0) pg MCHC (33.0-37.0) g/dL RDW (11.5-14.5) % Plt Count (130-400) K/uL MPV (7.2-11.7) fl Neut % (Auto) (50.0-75.0) % Lymph % (Auto) (20.0-40.0) % [place] % (Auto) (0.0-10.0) % Eos % (Auto) (0.0-4.0) % Baso % (Auto) (0.0-2.0) % Neut # (Auto) (1.8-7.0) K/uL Lymph # (Auto) (1.0-4.3) K/uL [place] # (Auto) (0.0-0.8) K/uL Eos # (Auto) (0.0-0.7) K/uL Baso # (Auto) (0.0-0.2) K/uL Neutrophils % (Manual) (42-75) % Lymphocytes % (Manual) (20-50) % Monocytes % (Manual) (0-10) % Platelet Estimate (NORMAL) Basophilic Stippling Tear Drop Cells Ovalocytes PT (9.8-13.1) Seconds INR (0.9-1.2) APTT (25.6-37.1) Seconds pCO2 (35-45) mm/Hg pO2 (80-100) mm/Hg HCO3 (21-28) mmol/L ABG pH (7.35-7.45) ABG Total CO2 (22-28) mmol/L ABG O2 Saturation (95-98) % ABG O2 Content (15-23) ML/dL ABG Base Excess (-2.0-3.0) mmol/L ABG Hemoglobin (11.7-17.4) g/dL ABG Carboxyhemoglobin (0.5-1.5) % POC ABG HHb (Measured) (0.0-5.0) % ABG Methemoglobin (0.0-3.0) % ABG O2 Capacity (16-24) mL/dL Jones Test A-a O2 Difference mm/Hg Hgb O2 Saturation (95.0-98.0) % Vent Mode Mechanical Rate FiO2 % Tidal Volume PEEP Crit Value Called To Crit Value Called By Crit Value Read Back Blood Gas Notified Time Sodium (132-148) mmol/l Potassium (3.6-5.0) MMOL/L Chloride (98-107) mmol/L Carbon Dioxide (22-30) mmol/L Anion Gap (10-20) BUN (7-17) mg/dl Creatinine (0.7-1.2) mg/dl Est GFR ( Amer) Est GFR (Non-Af Amer) POC Glucose (mg/dL) 82 (65-110) mg/dL Random Glucose (65-105) mg/dL Lactic Acid (0.7-2.1) MMOL/L Calcium (8.4-10.2) mg/dL Magnesium (1.6-2.3) MG/DL Total Bilirubin (0.2-1.3) mg/dl AST (14-36) U/L ALT (9-52) U/L Alkaline Phosphatase (38-126) U/L Total Protein (6.3-8.2) G/DL Albumin (3.5-5.0) g/dL Globulin (2.2-3.9) gm/dL Albumin/Globulin Ratio (1.0-2.1) Urine Color (YELLOW) Urine Clarity (Clear) Urine pH (5.0-8.0) Ur Specific [place] (1.003-1.030) Urine Protein (NEGATIVE) mg/dL Urine Glucose (UA) (Normal) mg/dL Urine Ketones (NEGATIVE) mg/dL Urine Blood (NEGATIVE) Urine Nitrate (NEGATIVE) Urine Bilirubin (NEGATIVE) Urine Urobilinogen (0.2-1.0) mg/dL Ur Leukocyte Esterase (Negative) Mitchel/uL Urine RBC (Auto) (0-3) /hpf Urine Microscopic WBC (0-5) /hpf Salicylates < 1.0 mg/dl Urine Opiates Screen (NEGATIVE) Urine Methadone Screen (NEGATIVE) Acetaminophen < 10.0 L (10.0-30.0) ug/ml Ur Barbiturates Screen (NEGATIVE) Ur Phencyclidine Scrn (NEGATIVE) Ur Amphetamines Screen (NEGATIVE) U Benzodiazepines Scrn (NEGATIVE) U Oth Cocaine Metabols (NEGATIVE) U Cannabinoids Screen (NEGATIVE) Alcohol, Quantitative (0-10) mg/dl Influenza Typ A,B (EIA) (NEGATIVE) Laboratory Results - last 24 hr 10/01/17 10/01/17 10/01/17 00:10 00:25 00:25 WBC RBC Hgb Hct MCV MCH MCHC RDW Plt Count MPV Neut % (Auto) Lymph % (Auto) [place] % (Auto) Eos % (Auto) Baso % (Auto) Neut # (Auto) Lymph # (Auto) [place] # (Auto) Eos # (Auto) Baso # (Auto) Neutrophils % (Manual) Lymphocytes % (Manual) Monocytes % (Manual) Platelet Estimate Basophilic Stippling Tear Drop Cells Ovalocytes PT INR APTT pCO2 pO2 HCO3 ABG pH ABG Total CO2 ABG O2 Saturation ABG O2 Content ABG Base Excess ABG Hemoglobin ABG Carboxyhemoglobin POC ABG HHb (Measured) ABG Methemoglobin ABG O2 Capacity Jones Test A-a O2 Difference Hgb O2 Saturation Vent Mode Mechanical Rate FiO2 Tidal Volume PEEP Crit Value Called To Crit Value Called By Crit Value Read Back Blood Gas Notified Time Sodium 131 L Potassium 4.1 Chloride 93 L Carbon Dioxide 22 Anion Gap 20 BUN 6 L Creatinine 0.5 L Est GFR ( Amer) > 60 Est GFR (Non-Af Amer) > 60 POC Glucose (mg/dL) 82 Random Glucose 91 Lactic Acid Calcium 8.6 Magnesium Total Bilirubin 0.3 AST 27 ALT 27 Alkaline Phosphatase 76 Total Protein 7.7 Albumin 4.5 Globulin 3.2 Albumin/Globulin Ratio 1.4 Urine Color Urine Clarity Urine pH Ur Specific [place] Urine Protein Urine Glucose (UA) Urine Ketones Urine Blood Urine Nitrate Urine Bilirubin Urine Urobilinogen Ur Leukocyte Esterase Urine RBC (Auto) Urine Microscopic WBC Salicylates < 1.0 Urine Opiates Screen Urine Methadone Screen Acetaminophen < 10.0 L Ur Barbiturates Screen Ur Phencyclidine Scrn Ur Amphetamines Screen U Benzodiazepines Scrn U Oth Cocaine Metabols U Cannabinoids Screen Alcohol, Quantitative 326 H* Influenza Typ A,B (EIA) 10/01/17 10/01/17 10/01/17 00:25 01:52 01:52 WBC 6.7 RBC 4.22 Hgb 13.1 Hct 38.6 MCV 91.5 MCH 31.1 H MCHC 33.9 RDW 13.6 Plt Count 336 MPV 7.3 Neut % (Auto) 56.1 Lymph % (Auto) 30.8 Kendall % (Auto) 8.7 Eos % (Auto) 3.5 Baso % (Auto) 0.9 Neut # (Auto) 3.8 Lymph # (Auto) 2.1 Kendall # (Auto) 0.6 Eos # (Auto) 0.2 Baso # (Auto) 0.1 Neutrophils % (Manual) Lymphocytes % (Manual) Monocytes % (Manual) Platelet Estimate Basophilic Stippling Tear Drop Cells Ovalocytes PT INR APTT pCO2 pO2 HCO3 ABG pH ABG Total CO2 ABG O2 Saturation ABG O2 Content ABG Base Excess ABG Hemoglobin ABG Carboxyhemoglobin POC ABG HHb (Measured) ABG Methemoglobin ABG O2 Capacity Jones Test A-a O2 Difference Hgb O2 Saturation Vent Mode Mechanical Rate FiO2 Tidal Volume PEEP Crit Value Called To Crit Value Called By Crit Value Read Back Blood Gas Notified Time Sodium Potassium Chloride Carbon Dioxide Anion Gap BUN Creatinine Est GFR ( Amer) Est GFR (Non-Af Amer) POC Glucose (mg/dL) Random Glucose Lactic Acid 1.0 Calcium Magnesium 1.8 Total Bilirubin AST ALT Alkaline Phosphatase Total Protein Albumin Globulin Albumin/Globulin Ratio Urine Color Urine Clarity Urine pH Ur Specific [place] Urine Protein Urine Glucose (UA) Urine Ketones Urine Blood Urine Nitrate Urine Bilirubin Urine Urobilinogen Ur Leukocyte Esterase Urine RBC (Auto) Urine Microscopic WBC Salicylates Urine Opiates Screen Urine Methadone Screen Acetaminophen Ur Barbiturates Screen Ur Phencyclidine Scrn Ur Amphetamines Screen U Benzodiazepines Scrn U Oth Cocaine Metabols U Cannabinoids Screen Alcohol, Quantitative Influenza Typ A,B (EIA) 10/01/17 10/01/17 10/01/17 01:52 02:33 02:59 WBC RBC Hgb Hct MCV MCH MCHC RDW Plt Count MPV Neut % (Auto) Lymph % (Auto) Kend[place] % (Auto) Eos % (Auto) Baso % (Auto) Neut # (Auto) Lymph # (Auto) Kendall # (Auto) Eos # (Auto) Baso # (Auto) Neutrophils % (Manual) Lymphocytes % (Manual) Monocytes % (Manual) Platelet Estimate Basophilic Stippling Tear Drop Cells Ovalocytes PT 11.5 INR 1.0 APTT 34.7 pCO2 66 H pO2 112 H HCO3 19.5 L ABG pH 7.15 L* ABG Total CO2 25.0 ABG O2 Saturation 98.8 H ABG O2 Content 16.8 ABG Base Excess -6.8 L ABG Hemoglobin 13.0 ABG Carboxyhemoglobin 5.6 H POC ABG HHb (Measured) 1.1 ABG Methemoglobin 2.0 ABG O2 Capacity 17.0 Jones Test Yes A-a O2 Difference 519.0 Hgb O2 Saturation 91.3 L Vent Mode Mechanical Rate FiO2 100.0 Tidal Volume PEEP Crit Value Called To Dr alex novoa Crit Value Called By Rohan Crit Value Read Back Y Blood Gas Notified Time 307 Sodium Potassium Chloride Carbon Dioxide Anion Gap BUN Creatinine Est GFR ( Amer) Est GFR (Non-Af Amer) POC Glucose (mg/dL) Random Glucose Lactic Acid Calcium Magnesium Total Bilirubin AST ALT Alkaline Phosphatase Total Protein Albumin Globulin Albumin/Globulin Ratio Urine Color Urine Clarity Urine pH Ur Specific [place] Urine Protein Urine Glucose (UA) Urine Ketones Urine Blood Urine Nitrate Urine Bilirubin Urine Urobilinogen Ur Leukocyte Esterase Urine RBC (Auto) Urine Microscopic WBC Salicylates Urine Opiates Screen Negative Urine Methadone Screen Negative Acetaminophen Ur Barbiturates Screen Negative Ur Phencyclidine Scrn Negative Ur Amphetamines Screen Negative U Benzodiazepines Scrn Negative U Oth Cocaine Metabols Negative U Cannabinoids Screen Negative Alcohol, Quantitative Influenza Typ A,B (EIA) 10/01/17 10/01/17 10/01/17 03:08 05:02 06:54 WBC RBC Hgb Hct MCV MCH MCHC RDW Plt Count MPV Neut % (Auto) Lymph % (Auto) [place] % (Auto) Eos % (Auto) Baso % (Auto) Neut # (Auto) Lymph # (Auto) [place] # (Auto) Eos # (Auto) Baso # (Auto) Neutrophils % (Manual) Lymphocytes % (Manual) Monocytes % (Manual) Platelet Estimate Basophilic Stippling Tear Drop Cells Ovalocytes PT INR APTT pCO2 48 H pO2 372 H HCO3 20.1 L ABG pH 7.25 L ABG Total CO2 22.5 ABG O2 Saturation 98.9 H ABG O2 Content 16.2 ABG Base Excess -6.2 L ABG Hemoglobin 11.4 L ABG Carboxyhemoglobin 2.7 H POC ABG HHb (Measured) 1.1 ABG Methemoglobin 1.1 ABG O2 Capacity 16.4 Jones Test Yes A-a O2 Difference 281.0 Hgb O2 Saturation 95.0 Vent Mode A/c Mechanical Rate 18 FiO2 100.0 Tidal Volume 500 PEEP 5 Crit Value Called To Crit Value Called By Crit Value Read Back Blood Gas Notified Time Sodium Potassium Chloride Carbon Dioxide Anion Gap BUN Creatinine Est GFR ( Amer) Est GFR (Non-Af Amer) POC Glucose (mg/dL) Random Glucose Lactic Acid Calcium Magnesium Total Bilirubin AST ALT Alkaline Phosphatase Total Protein Albumin Globulin Albumin/Globulin Ratio Urine Color Straw Urine Clarity Clear Urine pH 6.0 Ur Specific [place] 1.006 Urine Protein Negative Urine Glucose (UA) 50 Urine Ketones Negative Urine Blood Negative Urine Nitrate Negative Urine Bilirubin Negative Urine Urobilinogen 0.2-1.0 Ur Leukocyte Esterase Neg Urine RBC (Auto) < 1 Urine Microscopic WBC < 1 Salicylates Urine Opiates Screen Urine Methadone Screen Acetaminophen Ur Barbiturates Screen Ur Phencyclidine Scrn Ur Amphetamines Screen U Benzodiazepines Scrn U Oth Cocaine Metabols U Cannabinoids Screen Alcohol, Quantitative Influenza Typ A,B (EIA) Negative for flu a/b 10/01/17 10/01/17 08:30 08:30 WBC 8.7 RBC 3.77 L Hgb 11.8 L Hct 34.0 MCV 90.2 MCH 31.4 H MCHC 34.8 RDW 13.1 Plt Count 258 MPV 7.0 L Neut % (Auto) 93.3 H Lymph % (Auto) 5.8 L [place] % (Auto) 0.8 Eos % (Auto) 0.0 Baso % (Auto) 0.1 Neut # (Auto) 8.1 H Lymph # (Auto) 0.5 L [place] # (Auto) 0.1 Eos # (Auto) 0.0 Baso # (Auto) 0.0 Neutrophils % (Manual) 94 H Lymphocytes % (Manual) 4 L Monocytes % (Manual) 2 Platelet Estimate Normal Basophilic Stippling Slight Tear Drop Cells Slight Ovalocytes Slight PT INR APTT pCO2 pO2 HCO3 ABG pH ABG Total CO2 ABG O2 Saturation ABG O2 Content ABG Base Excess ABG Hemoglobin ABG Carboxyhemoglobin POC ABG HHb (Measured) ABG Methemoglobin ABG O2 Capacity Jones Test A-a O2 Difference Hgb O2 Saturation Vent Mode Mechanical Rate FiO2 Tidal Volume PEEP Crit Value Called To Crit Value Called By Crit Value Read Back Blood Gas Notified Time Sodium 128 L Potassium 4.2 Chloride 99 Carbon Dioxide 18 L Anion Gap 15 BUN 8 Creatinine 0.5 L Est GFR ( Amer) > 60 Est GFR (Non-Af Amer) > 60 POC Glucose (mg/dL) Random Glucose 133 H Lactic Acid Calcium 7.0 L Magnesium Total Bilirubin AST ALT Alkaline Phosphatase Total Protein Albumin Globulin Albumin/Globulin Ratio Urine Color Urine Clarity Urine pH Ur Specific [place] Urine Protein Urine Glucose (UA) Urine Ketones Urine Blood Urine Nitrate Urine Bilirubin Urine Urobilinogen Ur Leukocyte Esterase Urine RBC (Auto) Urine Microscopic WBC Salicylates Urine Opiates Screen Urine Methadone Screen Acetaminophen Ur Barbiturates Screen Ur Phencyclidine Scrn Ur Amphetamines Screen U Benzodiazepines Scrn U Oth Cocaine Metabols U Cannabinoids Screen Alcohol, Quantitative Influenza Typ A,B (EIA) EKG/Cardiology Studies: Cardiology / EKG Studies 10/01/17 EKG [ELECTROCARDIOGRAM] Routine Comment: Mode Of Transportation: PORTABLE Reason For Exam: Ambien overdose 10/01/17 00:12 ELECTROCARDIOGRAM Stat Comment: Mode Of Transportation: PORTABLE Reason For Exam: CP Fingerstick Blood Sugar Results: 82 Review of Systems - Review of Systems Review of Systems: unable to assess because intuvation on mechanical ventilation and AMS. Critical Care Progress Note - Nutrition Nutrition: Nutrition Category Date Time Status NPO Diet [DIET] Diets 10/01/17 Breakfast Active Assessment/Plan - Assessment and Plan (Free Text) Assessment: 57 y/o female with PMHx of Alcoholism and Depression admitted with Altered mental status after an Ambien Overdose. Plan: -Altered Mental Status -ICU unit -Most likely secondary to Alcohol intoxication and Ambien overdose -Intubated on mechanical ventilation -Continues airway protection -continues with cardiorespiratory monitor -PRVC A/C 18/500/5/100 %. Oxygen saturation 99-100 % after TV and FiO2 were decreased -CPAP spontaneous breathing trial started at 9:45 am, SP:10, rate 10, FiO2 40 % , PEEP 5. If well tolerated we can proceed to extubation -repeat morning EKG for evaluation of QT interval -c/w IV fluids -CXR today morning reported as ill-defined bilateral diffuse interstitial lung marking. Probable small right pleural effusion. -Head CT scan reported as no acute findings -swallow eval 24 hours after extubation -Poison control was called by ER doctor. F/U recommendation Medication Overdose -empty bottle on Ambien next to patient on EMS arrival -possible suicidal attempt -Poison control was called by ER doctor. F/U recommendation -Psychiatrist on consult as per primary team Metabolic and respiratory Acidosis -most likely 2/2 Ambien overdose -PH: 7.15 on admission -PCO2 : 66 -Intubated on mechanical ventilation -start CPAP PS spon trial -f/u blood gasses Bilateral Lung infiltrates -aspiration Pneum vs CAP ? -afebrile, no leukocytosis -on empiric antibiotics -Vancomycin 1 gm IV Q12 started on 10/01/17 -Zosyn 3.375 gm Q6 started on 10/01/17 -decrease Duoneb frequency from Q4 to Q6 -DC solumedrol, s/p 2 doses of 40 mg IV, and 125 mg IV once on admission CXR today morning reported as ill-defined bilateral diffuse interstitial lung marking. Probable small right pleural effusion. Prophylaxis -Platelet WNL on admission. On Lovenox 40 mg SC for DVT prophylaxis -Protonix 40 mg IV daily for stress ulcers prophylaxis - Date & Time Date: 10/01/17 Time: 08:30 <Chu Murphy - Last Filed: 10/01/17 14:17> CCU Subjective - Physician Review Subjective (Free Text): Attestation: Patient seen and examined at the bedside with Resident Dr. Adelina Arteaga; and I agree with her outline of plans and management documented above as discussed on AM rounds reflecting my review of all applicable clinical data, and participation in the care of the patient throughout the day in ICU; September.
--- NOTE | 2017-10-01 11:37 | CARD ---
APPROVED REPORT EKG Measurement Heart [id number] <Conclusion> Normal sinus rhythm Nonspecific T wave abnormality Abnormal ECG
--- NOTE | 2017-10-01 11:39 | CARD ---
APPROVED REPORT EKG Measurement Heart [id number] <Conclusion> Sinus tachycardia Possible Left atrial enlargement Nonspecific T wave abnormality Abnormal ECG
--- NOTE | 2017-10-01 12:30 | CP.PCM.CON ---
History of Present Illness - History of Present Illness History of Present Illness: Attempted to evaluate patient, patient continues to be intubated , asleep , unable to talk As per staff and treating PMD , Dr Cabrera Denise patient will be possibly extubated tomorrow AM Past Patient History - Past Medical History & Family History Past Medical History?: Yes - Past Social History Smoking Status: Unknown If Ever Smoked Chewing Tobacco Use: No Cigar Use: No Alcohol: > 2 Drinks/Day Drugs: Denies Home Situation {Lives}: Homeless - CARDIAC Hx Cardiac Disorders: No Hx Hypertension: No - PULMONARY Hx Asthma: Yes Hx Bronchitis: Yes - NEUROLOGICAL Hx Neurological Disorder: No Hx Seizures: No - HEENT Hx HEENT Problems: No - RENAL Hx Chronic Kidney Disease: No - ENDOCRINE/METABOLIC Hx Endocrine Disorders: No - HEMATOLOGICAL/ONCOLOGICAL Hx Blood Disorders: No Hx Human Immunodeficiency Virus (HIV): No - INTEGUMENTARY Hx Dermatological Problems: No - MUSCULOSKELETAL/RHEUMATOLOGICAL Hx Falls: Yes - GASTROINTESTINAL Hx Gastrointestinal Disorders: No - GENITOURINARY/GYNECOLOGICAL Hx Genitourinary Disorders: No Hx Sexually Transmitted Disorders: No - PSYCHIATRIC Hx Depression: Yes - SURGICAL HISTORY Hx Orthopedic Surgery: Yes (Left Humerus ORIF) - ANESTHESIA Hx Anesthesia: Yes Hx Anesthesia Reactions: No Meds Allergies/Adverse Reactions: Allergies Allergy/AdvReac Type Severity Reaction Status Date / Time Sulfa (Sulfonamide Allergy RASH Verified 10/01/17 00:06 Antibiotics) - Medications Medications: Current Medications Albuterol Sulfate (Albuterol 0.083% Inhal Ivy (2.5 Mg/3 Ml) Ud) 2.5 mg INH RQ6 JEFF Enoxaparin Sodium (Lovenox) 40 mg SC DAILY JEFF PRN Reason: Protocol Last Admin: 10/01/17 10:11 Dose: 40 mg Multivitamins/Vitamin C 10 ml/Folic Acid 1 mg/ Thiamine HCl 100 mg/ Dextrose/ Sodium Chloride 1,011.2 mls @ 150 mls/hr IV .[id number] ONE Stop: 10/01/17 17:14 Last Admin: 10/01/17 10:12 Dose: 150 mls/hr Piperacillin Sod/Tazobactam (Sod 3.375 gm/ Sodium Chloride) 100 mls @ 100 mls/ hr IVPB Q6 JEFF PRN Reason: Protocol Last Admin: 10/01/17 09:55 Dose: 100 mls/hr Sodium Chloride (Sodium Chloride 0.9%) 1,000 mls @ 1,000 mls/hr IV .Q1H [facility] Stop: 10/02/17 04:29 Vancomycin HCl 1 gm/ Sodium (Chloride) 250 mls @ 166.667 mls/hr IVPB Q12 JEFF PRN Reason: Protocol Last Admin: 10/01/17 06:02 Dose: 166.667 mls/hr Thiamine HCl 100 mg/ Folic Acid 1 mg/ Multivitamins/Vitamin C 10 ml/ Dextrose/ Sodium Chloride 1,011.2 mls @ 95 mls/hr IV .[id number] [facility] Stop: 10/02/17 10:09 Last Admin: 10/01/17 11:15 Dose: 95 mls/hr Ondansetron HCl (Zofran Inj) 4 mg IVP Q4 PRN PRN Reason: Nausea/Vomiting Pantoprazole Sodium (Protonix Inj) 40 mg IVP DAILY [facility] Last Admin: 10/01/17 09:55 Dose: 40 mg Results - Vital Signs Recent Vital Signs: Last Vital Signs Temp 99.7 F H 10/01/17 12:00 Pulse 82 10/01/17 12:00 Resp 16 10/01/17 12:00 BP 106/66 10/01/17 12:00 Pulse Ox 100 10/01/17 12:00 - Labs Result Diagrams: 10/01/17 08:30 10/01/17 08:30 Labs: Laboratory Results - last 24 hr 10/01/17 10/01/17 10/01/17 00:10 00:25 00:25 WBC RBC Hgb Hct MCV MCH MCHC RDW Plt Count MPV Neut % (Auto) Lymph % (Auto) [place] % (Auto) Eos % (Auto) Baso % (Auto) Neut # (Auto) Lymph # (Auto) [place] # (Auto) Eos # (Auto) Baso # (Auto) Neutrophils % (Manual) Lymphocytes % (Manual) Monocytes % (Manual) Platelet Estimate Basophilic Stippling Tear Drop Cells Ovalocytes PT INR APTT pCO2 pO2 HCO3 ABG pH ABG Total CO2 ABG O2 Saturation ABG O2 Content ABG Base Excess ABG Hemoglobin ABG Carboxyhemoglobin POC ABG HHb (Measured) ABG Methemoglobin ABG O2 Capacity Jones Test A-a O2 Difference Hgb O2 Saturation Vent Mode Mechanical Rate FiO2 Tidal Volume PEEP Crit Value Called To Crit Value Called By Crit Value Read Back Blood Gas Notified Time Sodium 131 L Potassium 4.1 Chloride 93 L Carbon Dioxide 22 Anion Gap 20 BUN 6 L Creatinine 0.5 L Est GFR ( Amer) > 60 Est GFR (Non-Af Amer) > 60 POC Glucose (mg/dL) 82 Random Glucose 91 Lactic Acid Calcium 8.6 Magnesium Total Bilirubin 0.3 AST 27 ALT 27 Alkaline Phosphatase 76 Total Protein 7.7 Albumin 4.5 Globulin 3.2 Albumin/Globulin Ratio 1.4 Urine Color Urine Clarity Urine pH Ur Specific [place] Urine Protein Urine Glucose (UA) Urine Ketones Urine Blood Urine Nitrate Urine Bilirubin Urine Urobilinogen Ur Leukocyte Esterase Urine RBC (Auto) Urine Microscopic WBC Salicylates < 1.0 Urine Opiates Screen Urine Methadone Screen Acetaminophen < 10.0 L Ur Barbiturates Screen Ur Phencyclidine Scrn Ur Amphetamines Screen U Benzodiazepines Scrn U Oth Cocaine Metabols U Cannabinoids Screen Alcohol, Quantitative 326 H* Influenza Typ A,B (EIA) 10/01/17 10/01/17 10/01/17 00:25 01:52 01:52 WBC 6.7 RBC 4.22 Hgb 13.1 Hct 38.6 MCV 91.5 MCH 31.1 H MCHC 33.9 RDW 13.6 Plt Count 336 MPV 7.3 Neut % (Auto) 56.1 Lymph % (Auto) 30.8 [place] % (Auto) 8.7 Eos % (Auto) 3.5 Baso % (Auto) 0.9 Neut # (Auto) 3.8 Lymph # (Auto) 2.1 [place] # (Auto) 0.6 Eos # (Auto) 0.2 Baso # (Auto) 0.1 Neutrophils % (Manual) Lymphocytes % (Manual) Monocytes % (Manual) Platelet Estimate Basophilic Stippling Tear Drop Cells Ovalocytes PT INR APTT pCO2 pO2 HCO3 ABG pH ABG Total CO2 ABG O2 Saturation ABG O2 Content ABG Base Excess ABG Hemoglobin ABG Carboxyhemoglobin POC ABG HHb (Measured) ABG Methemoglobin ABG O2 Capacity Jones Test A-a O2 Difference Hgb O2 Saturation Vent Mode Mechanical Rate FiO2 Tidal Volume PEEP Crit Value Called To Crit Value Called By Crit Value Read Back Blood Gas Notified Time Sodium Potassium Chloride Carbon Dioxide Anion Gap BUN Creatinine Est GFR ( Amer) Est GFR (Non-Af Amer) POC Glucose (mg/dL) Random Glucose Lactic Acid 1.0 Calcium Magnesium 1.8 Total Bilirubin AST ALT Alkaline Phosphatase Total Protein Albumin Globulin Albumin/Globulin Ratio Urine Color Urine Clarity Urine pH Ur Specific [place] Urine Protein Urine Glucose (UA) Urine Ketones Urine Blood Urine Nitrate Urine Bilirubin Urine Urobilinogen Ur Leukocyte Esterase Urine RBC (Auto) Urine Microscopic WBC Salicylates Urine Opiates Screen Urine Methadone Screen Acetaminophen Ur Barbiturates Screen Ur Phencyclidine Scrn Ur Amphetamines Screen U Benzodiazepines Scrn U Oth Cocaine Metabols U Cannabinoids Screen Alcohol, Quantitative Influenza Typ A,B (EIA) 10/01/17 10/01/17 10/01/17 01:52 02:33 02:59 WBC RBC Hgb Hct MCV MCH MCHC RDW Plt Count MPV Neut % (Auto) Lymph % (Auto) [place] % (Auto) Eos % (Auto) Baso % (Auto) Neut # (Auto) Lymph # (Auto) [place] # (Auto) Eos # (Auto) Baso # (Auto) Neutrophils % (Manual) Lymphocytes % (Manual) Monocytes % (Manual) Platelet Estimate Basophilic Stippling Tear Drop Cells Ovalocytes PT 11.5 INR 1.0 APTT 34.7 pCO2 66 H pO2 112 H HCO3 19.5 L ABG pH 7.15 L* ABG Total CO2 25.0 ABG O2 Saturation 98.8 H ABG O2 Content 16.8 ABG Base Excess -6.8 L ABG Hemoglobin 13.0 ABG Carboxyhemoglobin 5.6 H POC ABG HHb (Measured) 1.1 ABG Methemoglobin 2.0 ABG O2 Capacity 17.0 Jones Test Yes A-a O2 Difference 519.0 Hgb O2 Saturation 91.3 L Vent Mode Mechanical Rate FiO2 100.0 Tidal Volume PEEP Crit Value Called To Dr alex novoa Crit Value Called By Rohan Crit Value Read Back Y Blood Gas Notified Time 307 Sodium Potassium Chloride Carbon Dioxide Anion Gap BUN Creatinine Est GFR ( Amer) Est GFR (Non-Af Amer) POC Glucose (mg/dL) Random Glucose Lactic Acid Calcium Magnesium Total Bilirubin AST ALT Alkaline Phosphatase Total Protein Albumin Globulin Albumin/Globulin Ratio Urine Color Urine Clarity Urine pH Ur Specific [place] Urine Protein Urine Glucose (UA) Urine Ketones Urine Blood Urine Nitrate Urine Bilirubin Urine Urobilinogen Ur Leukocyte Esterase Urine RBC (Auto) Urine Microscopic WBC Salicylates Urine Opiates Screen Negative Urine Methadone Screen Negative Acetaminophen Ur Barbiturates Screen Negative Ur Phencyclidine Scrn Negative Ur Amphetamines Screen Negative U Benzodiazepines Scrn Negative U Oth Cocaine Metabols Negative U Cannabinoids Screen Negative Alcohol, Quantitative Influenza Typ A,B (EIA) 10/01/17 10/01/17 10/01/17 03:08 05:02 06:54 WBC RBC Hgb Hct MCV MCH MCHC RDW Plt Count MPV Neut % (Auto) Lymph % (Auto) [place] % (Auto) Eos % (Auto) Baso % (Auto) Neut # (Auto) Lymph # (Auto) [place] # (Auto) Eos # (Auto) Baso # (Auto) Neutrophils % (Manual) Lymphocytes % (Manual) Monocytes % (Manual) Platelet Estimate Basophilic Stippling Tear Drop Cells Ovalocytes PT INR APTT pCO2 48 H pO2 372 H HCO3 20.1 L ABG pH 7.25 L ABG Total CO2 22.5 ABG O2 Saturation 98.9 H ABG O2 Content 16.2 ABG Base Excess -6.2 L ABG Hemoglobin 11.4 L ABG Carboxyhemoglobin 2.7 H POC ABG HHb (Measured) 1.1 ABG Methemoglobin 1.1 ABG O2 Capacity 16.4 Jones Test Yes A-a O2 Difference 281.0 Hgb O2 Saturation 95.0 Vent Mode A/c Mechanical Rate 18 FiO2 100.0 Tidal Volume 500 PEEP 5 Crit Value Called To Crit Value Called By Crit Value Read Back Blood Gas Notified Time Sodium Potassium Chloride Carbon Dioxide Anion Gap BUN Creatinine Est GFR ( Amer) Est GFR (Non-Af Amer) POC Glucose (mg/dL) Random Glucose Lactic Acid Calcium Magnesium Total Bilirubin AST ALT Alkaline Phosphatase Total Protein Albumin Globulin Albumin/Globulin Ratio Urine Color Straw Urine Clarity Clear Urine pH 6.0 Ur Specific [place] 1.006 Urine Protein Negative Urine Glucose (UA) 50 Urine Ketones Negative Urine Blood Negative Urine Nitrate Negative Urine Bilirubin Negative Urine Urobilinogen 0.2-1.0 Ur Leukocyte Esterase Neg Urine RBC (Auto) < 1 Urine Microscopic WBC < 1 Salicylates Urine Opiates Screen Urine Methadone Screen Acetaminophen Ur Barbiturates Screen Ur Phencyclidine Scrn Ur Amphetamines Screen U Benzodiazepines Scrn U Oth Cocaine Metabols U Cannabinoids Screen Alcohol, Quantitative Influenza Typ A,B (EIA) Negative for flu a/b 10/01/17 10/01/17 08:30 08:30 WBC 8.7 RBC 3.77 L Hgb 11.8 L Hct 34.0 MCV 90.2 MCH 31.4 H MCHC 34.8 RDW 13.1 Plt Count 258 MPV 7.0 L Neut % (Auto) 93.3 H Lymph % (Auto) 5.8 L [place] % (Auto) 0.8 Eos % (Auto) 0.0 Baso % (Auto) 0.1 Neut # (Auto) 8.1 H Lymph # (Auto) 0.5 L [place] # (Auto) 0.1 Eos # (Auto) 0.0 Baso # (Auto) 0.0 Neutrophils % (Manual) 94 H Lymphocytes % (Manual) 4 L Monocytes % (Manual) 2 Platelet Estimate Normal Basophilic Stippling Slight Tear Drop Cells Slight Ovalocytes Slight PT INR APTT pCO2 pO2 HCO3 ABG pH ABG Total CO2 ABG O2 Saturation ABG O2 Content ABG Base Excess ABG Hemoglobin ABG Carboxyhemoglobin POC ABG HHb (Measured) ABG Methemoglobin ABG O2 Capacity Jones Test A-a O2 Difference Hgb O2 Saturation Vent Mode Mechanical Rate FiO2 Tidal Volume PEEP Crit Value Called To Crit Value Called By Crit Value Read Back Blood Gas Notified Time Sodium 128 L Potassium 4.2 Chloride 99 Carbon Dioxide 18 L Anion Gap 15 BUN 8 Creatinine 0.5 L Est GFR ( Amer) > 60 Est GFR (Non-Af Amer) > 60 POC Glucose (mg/dL) Random Glucose 133 H Lactic Acid Calcium 7.0 L Magnesium Total Bilirubin AST ALT Alkaline Phosphatase Total Protein Albumin Globulin Albumin/Globulin Ratio Urine Color Urine Clarity Urine pH Ur Specific [place] Urine Protein Urine Glucose (UA) Urine Ketones Urine Blood Urine Nitrate Urine Bilirubin Urine Urobilinogen Ur Leukocyte Esterase Urine RBC (Auto) Urine Microscopic WBC Salicylates Urine Opiates Screen Urine Methadone Screen Acetaminophen Ur Barbiturates Screen Ur Phencyclidine Scrn Ur Amphetamines Screen U Benzodiazepines Scrn U Oth Cocaine Metabols U Cannabinoids Screen Alcohol, Quantitative Influenza Typ A,B (EIA)
[2017-10-02] MEDS: Albuterol 0.083% Inhal Sol (2.5 mg/3 mL) UD INH SCH ×5 (01:03→19:34)
[2017-10-02] MEDS: Piperacillin/Tazobact 3.375 GM in Sodium Chloride 0.9% 100 ML IVPB SCH (03:30)
[2017-10-02] MEDS: Dextrose 5%/0.9% NS 1,000 ML IV SCH ×2 (04:08→16:30)
[2017-10-02 05:52] LABS: MEAN CELL VOLUME 91.5 fl (81.0-99.0); MEAN CORPUSCULAR HEMOGLOBIN 30.9 pg (27.0-31.0); MEAN CORPUSCULAR HGB CONC 33.8 g/dL (33.0-37.0); RBC 3.56 Mil/uL (3.80-5.20); RED CELL DISTRIBUTION WIDTH 13.6 % (11.5-14.5); WHITE BLOOD COUNT 8.7 K/uL (4.8-10.8)
[2017-10-02 06:41] LABS: BLOOD UREA NITROGEN 8 mg/dl (7-17); CALCIUM 7.8 mg/dL (8.4-10.2); GFR AFRICAN-AMERICAN > 60; GFR NON-AFRICAN AMERICAN > 60
--- NOTE | 2017-10-02 06:48 | PCM.PROC ---
Procedures Attestation:: I certify that I have explained the specified Operation(s) or Procedure(s), risks, benefits and reasonable alternatives to the Patient and/or other person responsible. The opportunity was given to ask questions and all questions answered - Extubation Clinical Parameters: Resolution/Stabilization of disease process, Hemodynamically Stable, Intact Cough/Gag Reflex, Spontaneous Respirations, Acceptable Vent Settings (FIO2<50%, PEEP<8, PaO2>75, pH>7.25) Weaning Criteria Met: Yes General Weaning Approaches: Pressure Support Ventilation (PSV) Weaning, Spontaneous breathing trials and use of T-Piece Patient Condition: Patient has been successfully extubated and assessed Oxygen Therapy: O2 via Venti Mask Patient Tolerated Procedure: Well Additional Comments: Self-Awakened and mildly agiated, no further anxiolytics given, had tolerated multiple SBTs this AM with excellent tolerance. ETT removed without complications and placed on 40% VM, no immediate stridor nopted, stable spontaneous resp pattern noted.
[2017-10-02] MEDS: Enoxaparin 40 mg Syringe SC SCH (08:58)
--- NOTE | 2017-10-02 11:24 | CP.PCM.PN ---
Subjective - Date & Time of Evaluation Date of Evaluation: 10/02/17 Time of Evaluation: 06:45 - Subjective Subjective: 57F Objective - Vital Signs/Intake and Output Vital Signs (last 24 hours): Temp Pulse Resp BP Pulse Ox 36.7 C 88 16 126/69 99 10/02/17 08:00 10/02/17 10:00 10/02/17 10:00 10/02/17 10:00 10/02/17 10:00 Intake and Output: 10/02/17 10/02/17 06:59 18:59 Intake Total 1055 900 Output Total 1500 1100 Balance -445 -200 - Medications Medications: Current Medications Albuterol Sulfate (Albuterol 0.083% Inhal [place] (2.5 Mg/3 Ml) Ud) 2.5 mg INH RQ6 [facility] Last Admin: 10/02/17 07:43 Dose: 2.5 mg Enoxaparin Sodium (Lovenox) 40 mg SC DAILY [facility] PRN Reason: Protocol Last Admin: 10/02/17 08:58 Dose: 40 mg Home Med (Patient's Own Medication) 1 unit OU Q4H PRN PRN Reason: Dry eyes Dextrose/Sodium Chloride (Dextrose 5%/0.9% Ns 1000 Ml) 1,000 mls @ 100 mls/hr IV .Q10H [facility] Stop: 10/02/17 21:11 Last Admin: 10/02/17 04:08 Dose: 100 mls/hr Nicotine (Nicoderm Cq) 1 patch TD DAILY [facility] Last Admin: 10/02/17 08:58 Dose: 1 patch Ondansetron HCl (Zofran Inj) 4 mg IVP Q4 PRN PRN Reason: Nausea/Vomiting Pantoprazole Sodium (Protonix Inj) 40 mg IVP DAILY [facility] Last Admin: 10/02/17 08:58 Dose: 40 mg - Labs Labs: 10/02/17 04:30 10/02/17 04:30 PT 11.5 Seconds (9.8-13.1) 10/01/17 01:52 INR 1.0 (0.9-1.2) 10/01/17 01:52 APTT 34.7 Seconds (25.6-37.1) 10/01/17 01:52
--- NOTE | 2017-10-02 12:12 | CP.PCM.CON ---
History of Present Illness - History of Present Illness History of Present Illness: Psychiatry consult note 57 YO homeless female with PMH of depression who was seen in the ER on 09/29/16 for suicidal ideation with the plan of dying and taking pills. Patient was evaluated by mud car worker and did not meet criteria for admission at that time and was advised to follow outpatient. Prior to this admission to the ER, patient attempted suicide by overdosing on an entire bottle of Ambien. She states that it was an impulsive suicide attempt. Patient was intubated in the ICU and now extubated. Patient continues to report feeling depressed but denies acute SI. She is not agreeable to voluntary inpatient psychiatric admission at this time, despite recommendation from the junior copywriter. She denies AH/ VH/paranoia/delusions/HI. PPHx: H/o depression, current outpatient treatment recently started w/ Dr. Moreland PMH: Asthma,Tobacco abuse, Osteoporosis, Alcohol abuse PSH: Left humerus ORIF SH: Homeless, alcohol abuse, smoker 1/2 PPD x 30 years Medication: Lexapro had recently been increased to 20 mg, Ambian 5mg PO QHS FH: Unknown Allergies: Sulfa drugs PMD: Dr. Tata Penaloza MSE: A + O x 3, calm, cooperative, speech normal, mood/affect-depressed, no AH/ VH, thought process linear/coherent, Poor I/J, poor impulse control. Impression: 57 yo female w/ h/o depression presents s/p suicide attempt, patient has poor insight/judgement. Recommendations: -Continue Lexapro 20 mg PO Daily -Screen for involuntary psychiatric admission; if patient does not meet criteria for involuntary admission, patient can be discharged w/ continued outpatient follow-up -Continue 1:1 for safety Past Patient History - Past Medical History & Family History Past Medical History?: Yes - Past Social History Smoking Status: Unknown If Ever Smoked Chewing Tobacco Use: No Cigar Use: No Alcohol: > 2 Drinks/Day Drugs: Denies Home Situation {Lives}: Homeless - CARDIAC Hx Cardiac Disorders: No Hx Hypertension: No - PULMONARY Hx Asthma: Yes Hx Bronchitis: Yes - NEUROLOGICAL Hx Neurological Disorder: No Hx Seizures: No - HEENT Hx HEENT Problems: No - RENAL Hx Chronic Kidney Disease: No - ENDOCRINE/METABOLIC Hx Endocrine Disorders: No - HEMATOLOGICAL/ONCOLOGICAL Hx Blood Disorders: No Hx Human Immunodeficiency Virus (HIV): No - INTEGUMENTARY Hx Dermatological Problems: No - MUSCULOSKELETAL/RHEUMATOLOGICAL Hx Falls: Yes - GASTROINTESTINAL Hx Gastrointestinal Disorders: No - GENITOURINARY/GYNECOLOGICAL Hx Genitourinary Disorders: No Hx Sexually Transmitted Disorders: No - PSYCHIATRIC Hx Depression: Yes - SURGICAL HISTORY Hx Orthopedic Surgery: Yes (Left Humerus ORIF) - ANESTHESIA Hx Anesthesia: Yes Hx Anesthesia Reactions: No Meds Allergies/Adverse Reactions: Allergies Allergy/AdvReac Type Severity Reaction Status Date / Time Sulfa (Sulfonamide Allergy RASH Verified 10/01/17 00:06 Antibiotics) - Medications Medications: Current Medications Albuterol Sulfate (Albuterol 0.083% Inhal Ivy (2.5 Mg/3 Ml) Ud) 2.5 mg INH RQ6 [facility] Last Admin: 10/02/17 12:04 Dose: 2.5 mg Enoxaparin Sodium (Lovenox) 40 mg SC DAILY [facility] PRN Reason: Protocol Last Admin: 10/02/17 08:58 Dose: 40 mg Home Med (Patient's Own Medication) 1 unit OU Q4H PRN PRN Reason: Dry eyes Dextrose/Sodium Chloride (Dextrose 5%/0.9% Ns 1000 Ml) 1,000 mls @ 100 mls/hr IV .Q10H [facility] Stop: 10/02/17 21:11 Last Admin: 10/02/17 04:08 Dose: 100 mls/hr Nicotine (Nicoderm Cq) 1 patch TD DAILY [facility] Last Admin: 10/02/17 08:58 Dose: 1 patch Ondansetron HCl (Zofran Inj) 4 mg IVP Q4 PRN PRN Reason: Nausea/Vomiting Pantoprazole Sodium (Protonix Inj) 40 mg IVP DAILY [facility] Last Admin: 10/02/17 08:58 Dose: 40 mg Results - Vital Signs Recent Vital Signs: Last Vital Signs Temp 98.1 F 10/02/17 08:00 Pulse 88 10/02/17 10:00 Resp 16 10/02/17 10:00 BP 126/69 10/02/17 10:00 Pulse Ox 99 10/02/17 10:00 - Labs Result Diagrams: 10/02/17 04:30 10/02/17 04:30 Labs: Laboratory Results - last 24 hr 10/01/17 10/02/17 10/02/17 08:30 04:30 04:30 WBC 8.7 RBC 3.56 L Hgb 11.0 L Hct 32.5 L MCV 91.5 MCH 30.9 MCHC 33.8 RDW 13.6 Plt Count 253 Sodium 140 Potassium 3.6 Chloride 105 Carbon Dioxide 26 Anion Gap 13 BUN 8 Creatinine 0.5 L Est GFR ( Amer) > 60 Est GFR (Non-Af Amer) > 60 Random Glucose 125 H Calcium 7.8 L Procalcitonin < 0.05 L
[2017-10-03] MEDS: Albuterol 0.083% Inhal Sol (2.5 mg/3 mL) UD INH SCH ×4 (01:00→19:57)
[2017-10-03] MEDS: Enoxaparin 40 mg Syringe SC SCH (09:00)
--- NOTE | 2017-10-03 12:13 | CP.PCM.PN ---
Subjective - Date & Time of Evaluation Date of Evaluation: 10/03/17 Time of Evaluation: 08:20 - Subjective Subjective: Pt was seen and eval at bedside this morning. Reports no acute events overnight. She is still on 1:1. She appears to be agitated that she does not have her phone. Denies dizziness, chest pain, shortness of breath, nausea, vomiting, GI upset, difficulty urinating, leg pain. Objective - Vital Signs/Intake and Output Vital Signs (last 24 hours): Temp Pulse Resp BP Pulse Ox 98.2 F 66 18 150/88 98 10/03/17 08:38 10/03/17 08:38 10/03/17 08:38 10/03/17 08:38 10/03/17 08:38 - Medications Medications: Current Medications Albuterol Sulfate (Albuterol 0.083% Inhal Ivy (2.5 Mg/3 Ml) Ud) 2.5 mg INH RQ6 [facility] Last Admin: 10/03/17 08:24 Dose: 2.5 mg Enoxaparin Sodium (Lovenox) 40 mg SC DAILY [facility] PRN Reason: Protocol Last Admin: 10/02/17 08:58 Dose: 40 mg Escitalopram Oxalate (Lexapro) 20 mg PO DAILY [facility] Last Admin: 10/03/17 08:55 Dose: 20 mg Home Med (Patient's Own Medication) 1 unit OU Q4H PRN PRN Reason: Dry eyes Nicotine (Nicoderm Cq) 1 patch TD DAILY [facility] Last Admin: 10/03/17 08:55 Dose: 1 patch Ondansetron HCl (Zofran Inj) 4 mg IVP Q4 PRN PRN Reason: Nausea/Vomiting Pantoprazole Sodium (Protonix Inj) 40 mg IVP DAILY [facility] Last Admin: 10/03/17 08:55 Dose: 40 mg - Labs Labs: 10/02/17 04:30 10/02/17 04:30 PT 11.5 Seconds (9.8-13.1) 10/01/17 01:52 INR 1.0 (0.9-1.2) 10/01/17 01:52 APTT 34.7 Seconds (25.6-37.1) 10/01/17 01:52 - Constitutional Appears: Non-toxic, No Acute Distress - Head Exam Head Exam: ATRAUMATIC, NORMAL INSPECTION, NORMOCEPHALIC - Eye Exam Eye Exam: Normal appearance - ENT Exam ENT Exam: Mucous Membranes Moist - Respiratory Exam Respiratory Exam: Clear to Ausculation Bilateral, NORMAL BREATHING PATTERN. absent: Respiratory Distress - Cardiovascular Exam Cardiovascular Exam: REGULAR RHYTHM, +S1, +S2 - GI/Abdominal Exam GI & Abdominal Exam: Soft, Normal Bowel Sounds. absent: Distended, Tenderness - Back Exam Back Exam: NORMAL INSPECTION - Neurological Exam Neurological Exam: Alert, Awake - Psychiatric Exam Psychiatric exam: Agitated, Anxious, Depressed - Skin Skin Exam: Dry, Intact, Normal Color, Warm Assessment and Plan - Assessment and Plan (Free Text) Assessment: 57 yo F, with PMH depression, s/p ambien overdose, intubation and extubation. Currently has no complaints. Plan: 1) Ambien Overdose and alcohol intoxication - S/p extubation - Normal O2 saturation on room air - Medically optimized 2) Alcohol abuse: - Blood alcohol level of 326 on arrival - No signs of withdrawal at this time - Continue to monitor for signs of withdrawal 3) Depression - s/p intentional ambien overdose - Seen by psychiatry consult Dr. Patel - pt is not agreeable to voluntary inpatient agreement. Recommended continued 1:1 and involuntary admission screening. Will discuss w/ social media designer. - Pt is medically optimized for involuntary admission 4) DVT prophylaxis - SCD
[2017-10-04] MEDS: Albuterol 0.083% Inhal Sol (2.5 mg/3 mL) UD INH SCH ×3 (07:23→19:44)
[2017-10-04] MEDS: Enoxaparin 40 mg Syringe SC SCH (08:56)
--- NOTE | 2017-10-04 23:19 | CP.PCM.PN ---
Subjective - Date & Time of Evaluation Date of Evaluation: 10/04/17 Time of Evaluation: 08:15 - Subjective Subjective: Patient seen and examined at bedside with attending. 57F with PMH of depression who intentionally overdosed on ambien. Patient reports feeling better and denies SOB, chest pain, N/V. Objective - Vital Signs/Intake and Output Vital Signs (last 24 hours): Temp Pulse Resp BP Pulse Ox 36.6 C 76 20 132/83 94 L 10/04/17 08:07 10/04/17 08:07 10/04/17 08:07 10/04/17 08:07 10/04/17 08:07 - Medications Medications: Current Medications Albuterol Sulfate (Albuterol 0.083% Inhal Ivy (2.5 Mg/3 Ml) Ud) 2.5 mg INH RQ6 [facility] Last Admin: 10/04/17 19:44 Dose: 2.5 mg Escitalopram Oxalate (Lexapro) 20 mg PO DAILY [facility] Last Admin: 10/04/17 08:55 Dose: 20 mg Home Med (Patient's Own Medication) 1 unit OU Q4H PRN PRN Reason: Dry eyes Nicotine (Nicoderm Cq) 1 patch TD DAILY [facility] Last Admin: 10/04/17 08:56 Dose: 1 patch Ondansetron HCl (Zofran Inj) 4 mg IVP Q4 PRN PRN Reason: Nausea/Vomiting Pantoprazole Sodium (Protonix Ec Tab) 40 mg PO DAILY [facility] - Labs Labs: 10/02/17 04:30 10/02/17 04:30 PT 11.5 Seconds (9.8-13.1) 10/01/17 01:52 INR 1.0 (0.9-1.2) 10/01/17 01:52 APTT 34.7 Seconds (25.6-37.1) 10/01/17 01:52 - Constitutional Appears: Well, Non-toxic - Head Exam Head Exam: ATRAUMATIC, NORMAL INSPECTION - Eye Exam Eye Exam: EOMI, PERRL - ENT Exam ENT Exam: Mucous Membranes Moist - Respiratory Exam Respiratory Exam: Clear to Ausculation Bilateral, NORMAL BREATHING PATTERN - Cardiovascular Exam Cardiovascular Exam: REGULAR RHYTHM, +S1, +S2 - GI/Abdominal Exam GI & Abdominal Exam: Soft, Normal Bowel Sounds - Extremities Exam Extremities Exam: Full ROM, Normal Capillary Refill - Neurological Exam Neurological Exam: Alert, Awake, Normal Gait (CIWA = 0), Oriented x3 - Psychiatric Exam Psychiatric exam: Depressed, Normal Affect - Skin Skin Exam: Normal Color, Warm Assessment and Plan - Assessment and Plan (Free Text) Assessment: 57F history of depression and s/p ambien overdose. Evaluation by psychiatry recommendation for involuntary evaluation by [facility] who has accepted her. Plan: - c/w Lexapro - DVT Prophylaxis: Lovenox - Depression/drug overdose awaiting [facility] placement - Smoker: Nicoderm - etOH Abuse: CINM protocol, 1:1 observation
[2017-10-05] MEDS: Albuterol 0.083% Inhal Sol (2.5 mg/3 mL) UD INH SCH ×5 (01:44→19:51)
[2017-10-05] MEDS: Pantoprazole 40 mg EC Tab PO SCH (09:48)
--- NOTE | 2017-10-05 11:27 | CP.PCM.PN ---
Subjective - Date & Time of Evaluation Date of Evaluation: 10/05/17 Time of Evaluation: 08:35 - Subjective Subjective: Pt seen and examined at bedside this am. Comfortable in bed eating breakfast. Offers no complaints and does not report acute events overnight. Awaiting transfer to available bed at [facility] [place] psych, 1:1 maintained right now. Objective - Vital Signs/Intake and Output Vital Signs (last 24 hours): Temp Pulse Resp BP Pulse Ox 98.5 F 80 20 146/79 95 10/05/17 08:20 10/05/17 08:20 10/05/17 08:20 10/05/17 08:20 10/05/17 08:20 - Medications Medications: Current Medications Albuterol Sulfate (Albuterol 0.083% Inhal Ivy (2.5 Mg/3 Ml) Ud) 2.5 mg INH RQ6 [facility] Last Admin: 10/05/17 08:12 Dose: 2.5 mg Escitalopram Oxalate (Lexapro) 20 mg PO DAILY [facility] Last Admin: 10/05/17 09:47 Dose: 20 mg Home Med (Patient's Own Medication) 1 unit OU Q4H PRN PRN Reason: Dry eyes Nicotine (Nicoderm Cq) 1 patch TD DAILY [facility] Last Admin: 10/05/17 09:47 Dose: 1 patch Pantoprazole Sodium (Protonix Ec Tab) 40 mg PO DAILY [facility] Last Admin: 10/05/17 09:48 Dose: 40 mg - Labs Labs: 10/02/17 04:30 10/02/17 04:30 PT 11.5 Seconds (9.8-13.1) 10/01/17 01:52 INR 1.0 (0.9-1.2) 10/01/17 01:52 APTT 34.7 Seconds (25.6-37.1) 10/01/17 01:52 - Constitutional Appears: Non-toxic, No Acute Distress - Head Exam Head Exam: NORMAL INSPECTION - Eye Exam Eye Exam: Normal appearance - ENT Exam ENT Exam: Mucous Membranes Moist - Respiratory Exam Respiratory Exam: Clear to Ausculation Bilateral, NORMAL BREATHING PATTERN. absent: Respiratory Distress - Cardiovascular Exam Cardiovascular Exam: REGULAR RHYTHM, +S1, +S2 - GI/Abdominal Exam GI & Abdominal Exam: Soft, Normal Bowel Sounds - Extremities Exam Extremities Exam: Normal Inspection. absent: Calf Tenderness, Pedal Edema - Back Exam Back Exam: NORMAL INSPECTION - Neurological Exam Neurological Exam: Alert, Awake - Skin Skin Exam: Dry, Normal Color, Warm Assessment and Plan - Assessment and Plan (Free Text) Assessment: 57 yo F, s/p intentional ambien overdose; screened and accepted by [facility] for involuntary inpatient psychiatric unit; awaiting available bed. 1:1 maintained. Plan: 1) Depression - s/p intentional ambien overdose - psychiatry consult recommend involuntary screen; pt was screened and accepted by [facility] for involuntary admission; awaiting bed. Medically optimized. - c/w Lexapro 20 mg daily 2) Alcohol abuse: - blood alcohol level of 326 on arrival - no signs of withdrawal at this time - continue to monitor for signs of withdrawal 3) Smoker - nicoderm patch 4) DVT prophylaxis - SCD
[2017-10-06] MEDS: Albuterol 0.083% Inhal Sol (2.5 mg/3 mL) UD INH SCH ×4 (01:00→18:59)
[2017-10-06] MEDS: Pantoprazole 40 mg EC Tab PO SCH (09:05)
--- NOTE | 2017-10-06 10:01 | CP.PCM.PN ---
Subjective - Date & Time of Evaluation Date of Evaluation: 10/06/17 Time of Evaluation: 09:35 - Subjective Subjective: Pt seen and examined at bedside this am. Appeared comfortable, in no acute distress, in bed finishing breakfast. Offers no complaints and does not report acute events overnight. Awaiting transfer [place] available [place] [facility] [place], 1 :1 maintained right now. Objective - Vital Signs/Intake and Output Vital Signs (last 24 hours): Temp Pulse Resp BP Pulse Ox 97.5 F L 80 20 115/74 93 L 10/06/17 07:57 10/06/17 07:57 10/06/17 07:57 10/06/17 07:57 10/06/17 07:57 - Medications Medications: Current Medications Albuterol Sulfate (Albuterol 0.083% Inhal Ivy (2.5 Mg/3 Ml) Ud) 2.5 mg INH RQ6 [facility] Last Admin: 10/06/17 08:02 Dose: 2.5 mg Escitalopram Oxalate (Lexapro) 20 mg PO DAILY [facility] Last Admin: 10/06/17 09:05 Dose: 20 mg Home Med (Patient's Own Medication) 1 unit OU Q4H PRN PRN Reason: Dry eyes Nicotine (Nicoderm Cq) 1 patch TD DAILY [facility] Last Admin: 10/06/17 09:05 Dose: 1 patch Pantoprazole Sodium (Protonix Ec Tab) 40 mg PO DAILY [facility] Last Admin: 10/06/17 09:05 Dose: 40 mg - Labs Labs: 10/02/17 04:30 10/02/17 04:30 PT 11.5 Seconds (9.8-13.1) 10/01/17 01:52 INR 1.0 (0.9-1.2) 10/01/17 01:52 APTT 34.7 Seconds (25.6-37.1) 10/01/17 01:52 - Constitutional Appears: Non-toxic, No Acute Distress - Head Exam Head Exam: NORMAL INSPECTION - Eye Exam Eye Exam: Normal appearance - ENT Exam ENT Exam: Mucous Membranes Moist - Respiratory Exam Respiratory Exam: NORMAL BREATHING PATTERN. absent: Respiratory Distress - Cardiovascular Exam Cardiovascular Exam: REGULAR RHYTHM - GI/Abdominal Exam GI & Abdominal Exam: Soft, Normal Bowel Sounds - Extremities Exam Extremities Exam: Normal Inspection - Back Exam Back Exam: NORMAL INSPECTION - Neurological Exam Neurological Exam: Alert, Awake, Oriented x3 - Skin Skin Exam: Dry, Intact, Normal Color Assessment and Plan - Assessment and Plan (Free Text) Assessment: 57 yo F, s/p intentional ambien overdose; screened and [place] [facility] [place]; awaiting available bed. 1:1 maintained. Plan: 1) Depression - s/p intentional ambien overdose - psychiatry consult recommend involuntary screen; pt was screened and accepted by [facility] [place]; awaiting bed. Medically optimized. - c/w Lexapro 20 mg daily 2) Alcohol abuse: - blood alcohol level of 326 on arrival - no signs of withdrawal at this time - continue to monitor for signs of withdrawal 3) Smoker - nicoderm patch 4) DVT prophylaxis - SCD
[2017-10-07] MEDS: Albuterol 0.083% Inhal Sol (2.5 mg/3 mL) UD INH SCH ×4 (01:17→18:59)
--- NOTE | 2017-10-07 07:48 | CP.PCM.PN ---
Subjective - Date & Time of Evaluation Date of Evaluation: 10/07/17 Time of Evaluation: 07:40 - Subjective Subjective: Pt seen and evaluated at bedside; no acute events overnight. 1:1 maintained; pt was screened and [place] [facility] [place], awaiting transfer. Objective - Vital Signs/Intake and Output Vital Signs (last 24 hours): Temp Pulse Resp BP Pulse Ox 97.8 F 75 19 112/73 95 10/07/17 00:00 10/07/17 00:00 10/07/17 00:00 10/07/17 00:00 10/07/17 00:00 - Medications Medications: Current Medications Albuterol Sulfate (Albuterol 0.083% Inhal Ivy (2.5 Mg/3 Ml) Ud) 2.5 mg INH RQ6 [facility] Last Admin: 10/07/17 07:31 Dose: 2.5 mg Escitalopram Oxalate (Lexapro) 20 mg PO DAILY [facility] Last Admin: 10/06/17 09:05 Dose: 20 mg Home Med (Patient's Own Medication) 1 unit OU Q4H PRN PRN Reason: Dry eyes Nicotine (Nicoderm Cq) 1 patch TD DAILY [facility] Last Admin: 10/06/17 09:05 Dose: 1 patch Pantoprazole Sodium (Protonix Ec Tab) 40 mg PO DAILY [facility] Last Admin: 10/06/17 09:05 Dose: 40 mg - Labs Labs: 10/02/17 04:30 10/02/17 04:30 PT 11.5 Seconds (9.8-13.1) 10/01/17 01:52 INR 1.0 (0.9-1.2) 10/01/17 01:52 APTT 34.7 Seconds (25.6-37.1) 10/01/17 01:52 - Constitutional Appears: Non-toxic, No Acute Distress - Head Exam Head Exam: NORMAL INSPECTION - Eye Exam Eye Exam: EOMI, Normal appearance - ENT Exam ENT Exam: Mucous Membranes Moist - Neck Exam Neck Exam: Full ROM - Respiratory Exam Respiratory Exam: Clear to Ausculation Bilateral, NORMAL BREATHING PATTERN. absent: Respiratory Distress - Cardiovascular Exam Cardiovascular Exam: REGULAR RHYTHM, +S1, +S2 - GI/Abdominal Exam GI & Abdominal Exam: Soft, Normal Bowel Sounds - Extremities Exam Extremities Exam: Normal Capillary Refill, Normal Inspection. absent: Calf Tenderness - Back Exam Back Exam: NORMAL INSPECTION - Neurological Exam Neurological Exam: Alert, Awake, Oriented x3 - Skin Skin Exam: Dry, Intact, Normal Color, Warm Assessment and Plan - Assessment and Plan (Free Text) Assessment: 57 yo F, s/p intentional ambien overdose; screened and accepted by [facility] [place] psychiatric [place]; awaiting available bed. 1:1 maintained. Plan: 1) Depression - s/p intentional ambien overdose - psychiatry consult recommend involuntary screen; pt was screened and accepted by [facility] [place] admission; awaiting bed. Medically optimized. - c/w Lexapro 20 mg daily 2) Alcohol abuse: - blood alcohol level of 326 on arrival - no signs of withdrawal at this time - continue to monitor for signs of withdrawal 3) Smoker - nicoderm patch - albuterol nebulizer treatments 4) DVT prophylaxis - SCD - lovenox 40mg sc daily
[2017-10-07] MEDS: Pantoprazole 40 mg EC Tab PO SCH (09:09)
[2017-10-07 11:45] LABS: MEAN CELL VOLUME 91.1 fl (81.0-99.0); MEAN CORPUSCULAR HEMOGLOBIN 30.2 pg (27.0-31.0); MEAN CORPUSCULAR HGB CONC 33.2 g/dL (33.0-37.0); RBC 4.51 Mil/uL (3.80-5.20); RED CELL DISTRIBUTION WIDTH 13.4 % (11.5-14.5); WHITE BLOOD COUNT 11.2 K/uL (4.8-10.8)
[2017-10-07 11:48] LABS: HEMOGLOBIN 13.6 g/dL (12.0-16.0)
[2017-10-07 11:53] LABS: BLOOD UREA NITROGEN 22 mg/dl (7-17); CALCIUM 9.7 mg/dL (8.4-10.2); GFR AFRICAN-AMERICAN > 60; GFR NON-AFRICAN AMERICAN > 60
[2017-10-07] MEDS: Enoxaparin 40 mg Syringe SC SCH (21:54)
[2017-10-07] MEDS: [UNRECOGNIZED DRUG - OTHER] OU PRN (22:01)
[2017-10-08] MEDS: Albuterol 0.083% Inhal Sol (2.5 mg/3 mL) UD INH SCH ×3 (01:51→13:17)
[2017-10-08] MEDS: Pantoprazole 40 mg EC Tab PO SCH (08:56)
[2017-10-08] MEDS: [UNRECOGNIZED DRUG - OTHER] OU PRN (08:56)
--- NOTE | 2017-10-08 10:11 | CP.PCM.CON ---
History of Present Illness - History of Present Illness History of Present Illness: Psychiatry follow-up note CC: "I feel fine." HPI: 57 yo female w/ h/o depression, s/p impulsive overdose on Ambien while acutely intoxicated, has not expressed suicidal ideation since admission. Patient reports good mood, is goal oriented, hopeful for the future. +Improved sleep/appetite. No active suicidal ideation/plan/intent. Denies AH/VH/SI/HI. She has been compliant with Lexapro 20 mg PO Daily. Denies any current psychiatric complaints. PPHx: H/o depression, current outpatient treatment recently started w/ Dr. Moreland PMH: Asthma,Tobacco abuse, Osteoporosis, Alcohol abuse PSH: Left humerus ORIF SH: Homeless, alcohol abuse, smoker 1/2 PPD x 30 years Allergies: Sulfa drugs PMD: Dr. Tata Penaloza MSE: A + O x 3, calm, cooperative, speech normal, mood/affect-neutral/broad, no AH/VH, thought process linear/coherent, Good I/J, Good impulse control, NO SI/ HI. Impression: 57 yo female w/ h/o depression, no longer needs involuntary psychiatric admission. Patient is psychiatrically stable to be discharged with outpatient follow-up. Recommendations: -Continue Lexapro 20 mg PO Daily -Discontinue 1:1 -Outpatient psychiatric follow-up Past Patient History - Past Medical History & Family History Past Medical History?: Yes - Past Social History Smoking Status: Unknown If Ever Smoked Chewing Tobacco Use: No Cigar Use: No Alcohol: > 2 Drinks/Day Drugs: Denies Home Situation {Lives}: Homeless - CARDIAC Hx Cardiac Disorders: No Hx Hypertension: No - PULMONARY Hx Asthma: Yes Hx Bronchitis: Yes - NEUROLOGICAL Hx Neurological Disorder: No Hx Seizures: No - HEENT Hx HEENT Problems: No - RENAL Hx Chronic Kidney Disease: No - ENDOCRINE/METABOLIC Hx Endocrine Disorders: No - HEMATOLOGICAL/ONCOLOGICAL Hx Blood Disorders: No Hx Human Immunodeficiency Virus (HIV): No - INTEGUMENTARY Hx Dermatological Problems: No - MUSCULOSKELETAL/RHEUMATOLOGICAL Hx Falls: Yes - GASTROINTESTINAL Hx Gastrointestinal Disorders: No - GENITOURINARY/GYNECOLOGICAL Hx Genitourinary Disorders: No Hx Sexually Transmitted Disorders: No - PSYCHIATRIC Hx Depression: Yes - SURGICAL HISTORY Hx Orthopedic Surgery: Yes (Left Humerus ORIF) - ANESTHESIA Hx Anesthesia: Yes Hx Anesthesia Reactions: No Meds Allergies/Adverse Reactions: Allergies Allergy/AdvReac Type Severity Reaction Status Date / Time Sulfa (Sulfonamide Allergy RASH Verified 10/01/17 00:06 Antibiotics) - Medications Medications: Current Medications Albuterol Sulfate (Albuterol 0.083% Inhal Ivy (2.5 Mg/3 Ml) Ud) 2.5 mg INH RQ6 [facility] Last Admin: 10/08/17 07:00 Dose: 2.5 mg Enoxaparin Sodium (Lovenox) 40 mg SC HS [facility] PRN Reason: Protocol Last Admin: 10/07/17 21:54 Dose: 40 mg Escitalopram Oxalate (Lexapro) 20 mg PO DAILY [facility] Last Admin: 10/08/17 08:57 Dose: 20 mg Home Med (Patient's Own Medication) 1 unit OU Q4H PRN PRN Reason: Dry eyes Last Admin: 10/08/17 08:56 Dose: 1 unit Nicotine (Nicoderm Cq) 1 patch TD DAILY [facility] Last Admin: 10/08/17 08:57 Dose: 1 patch Pantoprazole Sodium (Protonix Ec Tab) 40 mg PO DAILY [facility] Last Admin: 10/08/17 08:56 Dose: 40 mg Results - Vital Signs Recent Vital Signs: Last Vital Signs Temp 98.4 F 10/08/17 07:54 Pulse 88 10/08/17 07:54 Resp 20 10/08/17 07:54 BP 111/72 10/08/17 07:54 Pulse Ox 94 L 10/08/17 07:54 - Labs Result Diagrams: 10/07/17 11:20 10/07/17 11:20 Labs: Laboratory Results - last 24 hr 10/07/17 10/07/17 11:20 11:20 WBC 11.2 H RBC 4.51 Hgb 13.6 D Hct 41.1 MCV 91.1 MCH 30.2 MCHC 33.2 RDW 13.4 Plt Count 296 Sodium 134 Potassium 4.8 Chloride 93 L Carbon Dioxide 29 Anion Gap 17 BUN 22 H Creatinine 0.7 Est GFR ( Amer) > 60 Est GFR (Non-Af Amer) > 60 Random Glucose 97 Calcium 9.7
--- NOTE | 2017-10-08 10:30 | CP.PCM.DIS ---
Provider - Provider Date of Admission: 10/01/17 00:49 Attending physician: Jennifer James MD Hospital Course - Lab Results Lab Results: Micro Results 10/01/17 01:49 Blood Blood Culture - Final NO GROWTH AFTER 5 DAYS 10/01/17 01:49 Blood Gram Stain - Final TEST NOT PERFORMED 10/01/17 01:49 Blood Blood Culture - Final NO GROWTH AFTER 5 DAYS 10/01/17 01:49 Blood Gram Stain - Final TEST NOT PERFORMED 10/01/17 06:54 Naris MRSA Culture (Admit) - Final MRSA NOT DETECTED Most Recent Lab Values WBC 11.2 K/uL (4.8-10.8) H 10/07/17 11:20 RBC 4.51 Mil/uL (3.80-5.20) 10/07/17 11:20 Hgb 13.6 g/dL (12.0-16.0) D 10/07/17 11:20 Hct 41.1 % (34.0-47.0) 10/07/17 11:20 MCV 91.1 fl (81.0-99.0) 10/07/17 11:20 MCH 30.2 pg (27.0-31.0) 10/07/17 11:20 MCHC 33.2 g/dL (33.0-37.0) 10/07/17 11:20 RDW 13.4 % (11.5-14.5) 10/07/17 11:20 Plt Count 296 K/uL (130-400) 10/07/17 11:20 MPV 7.0 fl (7.2-11.7) L 10/01/17 08:30 Neut % (Auto) 93.3 % (50.0-75.0) H 10/01/17 08:30 Lymph % (Auto) 5.8 % (20.0-40.0) L 10/01/17 08:30 [place] % (Auto) 0.8 % (0.0-10.0) 10/01/17 08:30 Eos % (Auto) 0.0 % (0.0-4.0) 10/01/17 08:30 Baso % (Auto) 0.1 % (0.0-2.0) 10/01/17 08:30 Neut # (Auto) 8.1 K/uL (1.8-7.0) H 10/01/17 08:30 Lymph # (Auto) 0.5 K/uL (1.0-4.3) L 10/01/17 08:30 [place] # (Auto) 0.1 K/uL (0.0-0.8) 10/01/17 08:30 Eos # (Auto) 0.0 K/uL (0.0-0.7) 10/01/17 08:30 Baso # (Auto) 0.0 K/uL (0.0-0.2) 10/01/17 08:30 Neutrophils % (Manual) 94 % (42-75) H 10/01/17 08:30 Lymphocytes % (Manual) 4 % (20-50) L 10/01/17 08:30 Monocytes % (Manual) 2 % (0-10) 10/01/17 08:30 Platelet Estimate Normal (NORMAL) 10/01/17 08:30 Basophilic Stippling Slight 10/01/17 08:30 Tear Drop Cells Slight 10/01/17 08:30 Ovalocytes Slight 10/01/17 08:30 PT 11.5 Seconds (9.8-13.1) 10/01/17 01:52 INR 1.0 (0.9-1.2) 10/01/17 01:52 APTT 34.7 Seconds (25.6-37.1) 10/01/17 01:52 pCO2 48 mm/Hg (35-45) H 10/01/17 05:02 pO2 372 mm/Hg (80-100) H 10/01/17 05:02 HCO3 20.1 mmol/L (21-28) L 10/01/17 05:02 ABG pH 7.25 (7.35-7.45) L 10/01/17 05:02 ABG Total CO2 22.5 mmol/L (22-28) 10/01/17 05:02 ABG O2 Saturation 98.9 % (95-98) H 10/01/17 05:02 ABG O2 Content 16.2 ML/dL (15-23) 10/01/17 05:02 ABG Base Excess -6.2 mmol/L (-2.0-3.0) L 10/01/17 05:02 ABG Hemoglobin 11.4 g/dL (11.7-17.4) L 10/01/17 05:02 ABG Carboxyhemoglobin 2.7 % (0.5-1.5) H 10/01/17 05:02 POC ABG HHb (Measured) 1.1 % (0.0-5.0) 10/01/17 05:02 ABG Methemoglobin 1.1 % (0.0-3.0) 10/01/17 05:02 ABG O2 Capacity 16.4 mL/dL (16-24) 10/01/17 05:02 Jones Test Yes 10/01/17 05:02 A-a O2 Difference 281.0 mm/Hg 10/01/17 05:02 Hgb O2 Saturation 95.0 % (95.0-98.0) 10/01/17 05:02 Vent Mode A/c 10/01/17 05:02 Mechanical Rate 18 10/01/17 05:02 FiO2 100.0 % 10/01/17 05:02 Tidal Volume 500 10/01/17 05:02 PEEP 5 10/01/17 05:02 Crit Value Called To Dr alex novoa 10/01/17 02:59 Crit Value Called By 292 10/01/17 02:59 Crit Value Read Back Y 10/01/17 02:59 Blood Gas Notified Time 307 10/01/17 02:59 Sodium 134 mmol/l (132-148) 10/07/17 11:20 Potassium 4.8 MMOL/L (3.6-5.0) 10/07/17 11:20 Chloride 93 mmol/L (98-107) L 10/07/17 11:20 Carbon Dioxide 29 mmol/L (22-30) 10/07/17 11:20 Anion Gap 17 (10-20) 10/07/17 11:20 BUN 22 mg/dl (7-17) H 10/07/17 11:20 Creatinine 0.7 mg/dl (0.7-1.2) 10/07/17 11:20 Est GFR ( Amer) > 60 10/07/17 11:20 Est GFR (Non-Af Amer) > 60 10/07/17 11:20 POC Glucose (mg/dL) 82 mg/dL (65-110) 10/01/17 00:10 Random Glucose 97 mg/dL (65-105) 10/07/17 11:20 Lactic Acid 1.0 MMOL/L (0.7-2.1) 10/01/17 01:52 Calcium 9.7 mg/dL (8.4-10.2) 10/07/17 11:20 Magnesium 1.8 MG/DL (1.6-2.3) 10/01/17 01:52 Total Bilirubin 0.3 mg/dl (0.2-1.3) 10/01/17 00:25 AST 27 U/L (14-36) 10/01/17 00:25 ALT 27 U/L (9-52) 10/01/17 00:25 Alkaline Phosphatase 76 U/L (38-126) 10/01/17 00:25 Total Protein 7.7 G/DL (6.3-8.2) 10/01/17 00:25 Albumin 4.5 g/dL (3.5-5.0) 10/01/17 00:25 Globulin 3.2 gm/dL (2.2-3.9) 10/01/17 00:25 Albumin/Globulin Ratio 1.4 (1.0-2.1) 10/01/17 00:25 Procalcitonin < 0.05 NG/ML (0.19-0.49) L 10/01/17 08:30 Urine Color Straw (YELLOW) 10/01/17 03:08 Urine Clarity Clear (Clear) 10/01/17 03:08 Urine pH 6.0 (5.0-8.0) 10/01/17 03:08 Ur Specific [place] 1.006 (1.003-1.030) 10/01/17 03:08 Urine Protein Negative mg/dL (NEGATIVE) 10/01/17 03:08 Urine Glucose (UA) 50 mg/dL (Normal) 10/01/17 03:08 Urine Ketones Negative mg/dL (NEGATIVE) 10/01/17 03:08 Urine Blood Negative (NEGATIVE) 10/01/17 03:08 Urine Nitrate Negative (NEGATIVE) 10/01/17 03:08 Urine Bilirubin Negative (NEGATIVE) 10/01/17 03:08 Urine Urobilinogen 0.2-1.0 mg/dL (0.2-1.0) 10/01/17 03:08 Ur Leukocyte Esterase Neg [place]/uL (Negative) 10/01/17 03:08 Urine RBC (Auto) < 1 /hpf (0-3) 10/01/17 03:08 Urine Microscopic WBC < 1 /hpf (0-5) 10/01/17 03:08 Salicylates < 1.0 mg/dl 10/01/17 00:25 Urine Opiates Screen Negative (NEGATIVE) 10/01/17 02:33 Urine Methadone Screen Negative (NEGATIVE) 10/01/17 02:33 Acetaminophen < 10.0 ug/ml (10.0-30.0) L 10/01/17 00:25 Ur Barbiturates Screen Negative (NEGATIVE) 10/01/17 02:33 Ur Phencyclidine Scrn Negative (NEGATIVE) 10/01/17 02:33 Ur Amphetamines Screen Negative (NEGATIVE) 10/01/17 02:33 U Benzodiazepines Scrn Negative (NEGATIVE) 10/01/17 02:33 U Oth Cocaine Metabols Negative (NEGATIVE) 10/01/17 02:33 U Cannabinoids Screen Negative (NEGATIVE) 10/01/17 02:33 Alcohol, Quantitative 326 mg/dl (0-10) H* 10/01/17 00:25 Influenza Typ A,B (EIA) Negative for flu a/b (NEGATIVE) 10/01/17 06:54 Discharge Exam - Head Exam Head Exam: NORMAL INSPECTION Discharge Plan - Follow Up Plan Condition: STABLE Disposition: HOME/ ROUTINE
--- NOTE | 2017-10-08 13:23 | CP.PCM.PN ---
Subjective - Date & Time of Evaluation Date of Evaluation: 10/08/17 Time of Evaluation: 08:15 - Subjective Subjective: Pt seen and evaluated at bedside; no acute events overnight. 1:1 was maintained overnight. Objective - Vital Signs/Intake and Output Vital Signs (last 24 hours): Temp Pulse Resp BP Pulse Ox 98.4 F 88 20 111/72 94 L 10/08/17 07:54 10/08/17 07:54 10/08/17 07:54 10/08/17 07:54 10/08/17 07:54 - Medications Medications: Current Medications Albuterol Sulfate (Albuterol 0.083% Inhal Ivy (2.5 Mg/3 Ml) Ud) 2.5 mg INH RQ6 [facility] Last Admin: 10/08/17 13:17 Dose: 2.5 mg Enoxaparin Sodium (Lovenox) 40 mg SC HS [facility] PRN Reason: Protocol Last Admin: 10/07/17 21:54 Dose: 40 mg Escitalopram Oxalate (Lexapro) 20 mg PO DAILY [facility] Last Admin: 10/08/17 08:57 Dose: 20 mg Home Med (Patient's Own Medication) 1 unit OU Q4H PRN PRN Reason: Dry eyes Last Admin: 10/08/17 08:56 Dose: 1 unit Nicotine (Nicoderm Cq) 1 patch TD DAILY [facility] Last Admin: 10/08/17 08:57 Dose: 1 patch - Labs Labs: 10/07/17 11:20 10/07/17 11:20 PT 11.5 Seconds (9.8-13.1) 10/01/17 01:52 INR 1.0 (0.9-1.2) 10/01/17 01:52 APTT 34.7 Seconds (25.6-37.1) 10/01/17 01:52 - Constitutional Appears: No Acute Distress - Head Exam Head Exam: NORMAL INSPECTION - Eye Exam Eye Exam: Normal appearance - ENT Exam ENT Exam: Mucous Membranes Moist - Neck Exam Neck Exam: Full ROM - Respiratory Exam Respiratory Exam: NORMAL BREATHING PATTERN. absent: Respiratory Distress Additional comments: chronic smoker's cough - Cardiovascular Exam Cardiovascular Exam: REGULAR RHYTHM, +S1, +S2 - GI/Abdominal Exam GI & Abdominal Exam: Soft, Normal Bowel Sounds - Extremities Exam Extremities Exam: Full ROM, Normal Capillary Refill, Normal Inspection. absent : Calf Tenderness, Pedal Edema - Back Exam Back Exam: NORMAL INSPECTION - Neurological Exam Neurological Exam: Alert, Awake, Oriented x3 - Skin Skin Exam: Dry, Intact, Normal Color, Warm Assessment and Plan - Assessment and Plan (Free Text) Assessment: 57 yo F, s/p ambien overdose. Pt is doing much better - denies any suicidal ideation, was seen by psychiatry and cleared of 1:1. Plan: - Psychiatry cleared pt of 1:1 - C/w lexapro - Leukocytosis - pending CXR, UA - Chronic smoker- nicoderm and neb treatments - Lovenox
--- NOTE | 2017-10-08 14:39 | RAD ---
HISTORY: r/o infiltrate COMPARISON: Chest radiograph dated 10/01/2017 TECHNIQUE: Chest PA and lateral FINDINGS: LUNGS: Mild pulmonary vascular congestion. Left basilar infiltrate versus atelectasis. PLEURA: No significant pleural effusion identified. No pneumothorax apparent. CARDIOVASCULAR: Normal. OSSEOUS STRUCTURES: Partially imaged left humeral orthopedic hardware. Unchanged. VISUALIZED UPPER ABDOMEN: Normal. OTHER FINDINGS: Endotracheal and enteric tubes no longer present. IMPRESSION: Left basilar atelectasis versus infiltrate.
[2017-10-08 19:11] LABS: URINE BILIRUBIN NEGATIVE (NEGATIVE); URINE BLOOD NEGATIVE (NEGATIVE); URINE CLARITY CLEAR (Clear); URINE COLOR STRAW (YELLOW); URINE GLUCOSE (UA) NEG (Normal); URINE LEUKOCYTE ESTERASE NEG Leu/uL (Negative); URINE NITRATE NEGATIVE (NEGATIVE); URINE PROTEIN NEGATIVE (NEGATIVE); URINE UROBILINOGEN 0.2-1.0 mg/dL (0.2-1.0)
[2017-10-08] MEDS: Enoxaparin 40 mg Syringe SC SCH (21:29)
[2017-10-09 00:26] VITALS: O2SAT 95
[2017-10-09 07:47] VITALS: BP 99/69; PULSE 93; RESP 18; TEMP 98.3
[2017-10-09] MEDS: [UNRECOGNIZED DRUG - OTHER] OU PRN (09:05)
--- NOTE | 2017-10-09 11:56 | CP.PCM.DIS ---
Provider - Provider Date of Admission: 10/01/17 00:49 Attending physician: Jennifer James MD Primary care physician: [facility]- Dr. Penaloza Consults: Psychiatry- Dr. Patel (cleared pt for discharge following improvement in symptoms) Time Spent in preparation of Discharge (in minutes): 45 Diagnosis - Discharge Diagnosis (1) Overdose Status: Resolved Priority: High Comment: Pt is s/p intentional overdose on ambien; was admitted to ICU and intubated, then extubated within 24 hours, transferred to the floor. No further effects. Evaluated by psychiatry, who restarted lexapro and later cleared patient psychiatrically. Stable for discharge. (2) Depression Status: Chronic Priority: High Comment: Pt was seen while admitted by psychiatry. Originally pt was put on 1:1 observation , was screened and [place] [facility], pt significantly improved, and was cleared by psychiatry for safe discharge on lexapro. (3) Cough Status: Acute Comment: Pt is a smoker and has a chronic cough. Mild leukocytosis likely due to this. CXR the day prior to discharge showed no definitive infiltrates, and UA was unremarkable. Hospital Course - Lab Results Lab Results: Micro Results 10/01/17 01:49 Blood Blood Culture - Final NO GROWTH AFTER 5 DAYS 10/01/17 01:49 Blood Gram Stain - Final TEST NOT PERFORMED 10/01/17 01:49 Blood Blood Culture - Final NO GROWTH AFTER 5 DAYS 10/01/17 01:49 Blood Gram Stain - Final TEST NOT PERFORMED 10/01/17 06:54 Naris MRSA Culture (Admit) - Final MRSA NOT DETECTED Most Recent Lab Values WBC 11.2 K/uL (4.8-10.8) H 10/07/17 11:20 RBC 4.51 Mil/uL (3.80-5.20) 10/07/17 11:20 Hgb 13.6 g/dL (12.0-16.0) D 10/07/17 11:20 Hct 41.1 % (34.0-47.0) 10/07/17 11:20 MCV 91.1 fl (81.0-99.0) 10/07/17 11:20 MCH 30.2 pg (27.0-31.0) 10/07/17 11:20 MCHC 33.2 g/dL (33.0-37.0) 10/07/17 11:20 RDW 13.4 % (11.5-14.5) 10/07/17 11:20 Plt Count 296 K/uL (130-400) 10/07/17 11:20 MPV 7.0 fl (7.2-11.7) L 10/01/17 08:30 Neut % (Auto) 93.3 % (50.0-75.0) H 10/01/17 08:30 Lymph % (Auto) 5.8 % (20.0-40.0) L 10/01/17 08:30 [place] % (Auto) 0.8 % (0.0-10.0) 10/01/17 08:30 Eos % (Auto) 0.0 % (0.0-4.0) 10/01/17 08:30 Baso % (Auto) 0.1 % (0.0-2.0) 10/01/17 08:30 Neut # (Auto) 8.1 K/uL (1.8-7.0) H 10/01/17 08:30 Lymph # (Auto) 0.5 K/uL (1.0-4.3) L 10/01/17 08:30 [place] # (Auto) 0.1 K/uL (0.0-0.8) 10/01/17 08:30 Eos # (Auto) 0.0 K/uL (0.0-0.7) 10/01/17 08:30 Baso # (Auto) 0.0 K/uL (0.0-0.2) 10/01/17 08:30 Neutrophils % (Manual) 94 % (42-75) H 10/01/17 08:30 Lymphocytes % (Manual) 4 % (20-50) L 10/01/17 08:30 Monocytes % (Manual) 2 % (0-10) 10/01/17 08:30 Platelet Estimate Normal (NORMAL) 10/01/17 08:30 Basophilic Stippling Slight 10/01/17 08:30 Tear Drop Cells Slight 10/01/17 08:30 Ovalocytes Slight 10/01/17 08:30 PT 11.5 Seconds (9.8-13.1) 10/01/17 01:52 INR 1.0 (0.9-1.2) 10/01/17 01:52 APTT 34.7 Seconds (25.6-37.1) 10/01/17 01:52 pCO2 48 mm/Hg (35-45) H 10/01/17 05:02 pO2 372 mm/Hg (80-100) H 10/01/17 05:02 HCO3 20.1 mmol/L (21-28) L 10/01/17 05:02 ABG pH 7.25 (7.35-7.45) L 10/01/17 05:02 ABG Total CO2 22.5 mmol/L (22-28) 10/01/17 05:02 ABG O2 Saturation 98.9 % (95-98) H 10/01/17 05:02 ABG O2 Content 16.2 ML/dL (15-23) 10/01/17 05:02 ABG Base Excess -6.2 mmol/L (-2.0-3.0) L 10/01/17 05:02 ABG Hemoglobin 11.4 g/dL (11.7-17.4) L 10/01/17 05:02 ABG Carboxyhemoglobin 2.7 % (0.5-1.5) H 10/01/17 05:02 POC ABG HHb (Measured) 1.1 % (0.0-5.0) 10/01/17 05:02 ABG Methemoglobin 1.1 % (0.0-3.0) 10/01/17 05:02 ABG O2 Capacity 16.4 mL/dL (16-24) 10/01/17 05:02 Jones Test Yes 10/01/17 05:02 A-a O2 Difference 281.0 mm/Hg 10/01/17 05:02 Hgb O2 Saturation 95.0 % (95.0-98.0) 10/01/17 05:02 Vent Mode A/c 10/01/17 05:02 Mechanical Rate 18 10/01/17 05:02 FiO2 100.0 % 10/01/17 05:02 Tidal Volume 500 10/01/17 05:02 PEEP 5 10/01/17 05:02 Crit Value Called To Dr alex novoa 10/01/17 02:59 Crit Value Called By Rohan 10/01/17 02:59 Crit Value Read Back Y 10/01/17 02:59 Blood Gas Notified Time 307 10/01/17 02:59 Sodium 134 mmol/l (132-148) 10/07/17 11:20 Potassium 4.8 MMOL/L (3.6-5.0) 10/07/17 11:20 Chloride 93 mmol/L (98-107) L 10/07/17 11:20 Carbon Dioxide 29 mmol/L (22-30) 10/07/17 11:20 Anion Gap 17 (10-20) 10/07/17 11:20 BUN 22 mg/dl (7-17) H 10/07/17 11:20 Creatinine 0.7 mg/dl (0.7-1.2) 10/07/17 11:20 Est GFR ( Amer) > 60 10/07/17 11:20 Est GFR (Non-Af Amer) > 60 10/07/17 11:20 POC Glucose (mg/dL) 82 mg/dL (65-110) 10/01/17 00:10 Random Glucose 97 mg/dL (65-105) 10/07/17 11:20 Lactic Acid 1.0 MMOL/L (0.7-2.1) 10/01/17 01:52 Calcium 9.7 mg/dL (8.4-10.2) 10/07/17 11:20 Magnesium 1.8 MG/DL (1.6-2.3) 10/01/17 01:52 Total Bilirubin 0.3 mg/dl (0.2-1.3) 10/01/17 00:25 AST 27 U/L (14-36) 10/01/17 00:25 ALT 27 U/L (9-52) 10/01/17 00:25 Alkaline Phosphatase 76 U/L (38-126) 10/01/17 00:25 Total Protein 7.7 G/DL (6.3-8.2) 10/01/17 00:25 Albumin 4.5 g/dL (3.5-5.0) 10/01/17 00:25 Globulin 3.2 gm/dL (2.2-3.9) 10/01/17 00:25 Albumin/Globulin Ratio 1.4 (1.0-2.1) 10/01/17 00:25 Procalcitonin < 0.05 NG/ML (0.19-0.49) L 10/01/17 08:30 Urine Color Straw (YELLOW) 10/08/17 17:50 Urine Clarity Clear (Clear) 10/08/17 17:50 Urine pH 6.0 (5.0-8.0) 10/08/17 17:50 Ur Specific [place] 1.012 (1.003-1.030) 10/08/17 17:50 Urine Protein Negative mg/dL (NEGATIVE) 10/08/17 17:50 Urine Glucose (UA) Neg mg/dL (Normal) 10/08/17 17:50 Urine Ketones Negative mg/dL (NEGATIVE) 10/08/17 17:50 Urine Blood Negative (NEGATIVE) 10/08/17 17:50 Urine Nitrate Negative (NEGATIVE) 10/08/17 17:50 Urine Bilirubin Negative (NEGATIVE) 10/08/17 17:50 Urine Urobilinogen 0.2-1.0 mg/dL (0.2-1.0) 10/08/17 17:50 Ur Leukocyte Esterase Neg [place]/uL (Negative) 10/08/17 17:50 Urine RBC (Auto) 1 /hpf (0-3) 10/08/17 17:50 Urine Microscopic WBC < 1 /hpf (0-5) 10/01/17 03:08 Salicylates < 1.0 mg/dl 10/01/17 00:25 Urine Opiates Screen Negative (NEGATIVE) 10/01/17 02:33 Urine Methadone Screen Negative (NEGATIVE) 10/01/17 02:33 Acetaminophen < 10.0 ug/ml (10.0-30.0) L 10/01/17 00:25 Ur Barbiturates Screen Negative (NEGATIVE) 10/01/17 02:33 Ur Phencyclidine Scrn Negative (NEGATIVE) 10/01/17 02:33 Ur Amphetamines Screen Negative (NEGATIVE) 10/01/17 02:33 U Benzodiazepines Scrn Negative (NEGATIVE) 10/01/17 02:33 U Oth Cocaine Metabols Negative (NEGATIVE) 10/01/17 02:33 U Cannabinoids Screen Negative (NEGATIVE) 10/01/17 02:33 Alcohol, Quantitative 326 mg/dl (0-10) H* 10/01/17 00:25 Influenza Typ A,B (EIA) Negative for flu a/b (NEGATIVE) 10/01/17 06:54 - Hospital Course Hospital Course: rAcelia Majano is a 57 yo female who was admitted s/p intentional ambien overdose.She was seen and evaluated at bedside this morning; has no acute events /complaints overnight. Her hospital course included close monitoring by the medical team and psychiatric team. At this time, she is both medically and psychiatrically stable for discharge. Discharge Exam - Head Exam Head Exam: NORMAL INSPECTION - Eye Exam Eye Exam: Normal appearance - ENT Exam ENT Exam: Mucous Membranes Moist - Neck Exam Neck exam: Full Rom - Respiratory Exam Respiratory Exam: Clear to PA & Lateral, NORMAL BREATHING PATTERN, UNREMARKABLE. absent: Wheezes, Respiratory Distress - Cardiovascular Exam Cardiovascular Exam: REGULAR RHYTHM, +S1, +S2 - GI/Abdominal Exam GI & Abdominal Exam: Normal Bowel Sounds, Soft - Extremities Exam Extremities exam: normal inspection - Back Exam Back exam: NORMAL INSPECTION - Neurological Exam Neurological exam: Alert, Oriented x3 - Psychiatric Exam Psychiatric exam: Normal Mood - Skin Skin Exam: Dry, Intact, Normal Color, Warm Discharge Plan - Discharge Medications Prescriptions: Escitalopram [Lexapro] 20 mg PO DAILY #30 tab Nicotine 21 mg/24 hr [Nicoderm Cq] 1 patch TD DAILY #14 patch - Follow Up Plan Condition: STABLE Disposition: HOME/ ROUTINE Instructions: Depression, Polysubstance Abuse (DC) Additional Instructions: Please follow up at the [facility] today, October 09, at 10:30 am. Please follow up at the [facility] at 10:30 am tomorrow, October 10. Please return to ED if you have any suicidal thoughts. Referrals: [facility] [Provider Group] - 10/10/17 10:30 am [facility] - 10/09/17 10:30 am
== END 2017-10-09 11:25 | disposition home or self-care (01) | DRG 582 ==
LOC: H.ER 00:04 → H.ERHOLD 00:49 → H.ICU/CCU 03:29 → H.TEL 10-02 21:15 → H.MEDSURG1 10-03 22:55
PROVIDERS: ADMIT Family Medicine Geriatric Medicine; ATTEND Family Medicine Geriatric Medicine
PROC: 3E0234Z Introduction of Serum, Toxoid and Vaccine into Muscle, Percutaneous Approach (ICD-10-PCS; principal; 2017-10-01)
PROC: 0BH17EZ Insertion of Endotracheal Airway into Trachea, Via Natural or Artificial Opening (ICD-10-PCS; 2017-10-01)
PROC: 5A1935Z Respiratory Ventilation, Less than 24 Consecutive Hours (ICD-10-PCS; 2017-10-01)
DX: T42.6X2A Poisoning by other antiepileptic and sedative-hypnotic drugs, intentional self-harm, initial encounter (principal); J96.92 Respiratory failure, unspecified with hypercapnia; E87.4 Mixed disorder of acid-base balance; J45.901 Unspecified asthma with (acute) exacerbation; R53.83 Other fatigue; Z59.0 Homelessness; Z88.2 Allergy status to sulfonamides; Z23 Encounter for immunization; R04.0 Epistaxis; F17.200 Nicotine dependence, unspecified, uncomplicated; M81.0 Age-related osteoporosis without current pathological fracture; F32.9 Major depressive disorder, single episode, unspecified; F10.129 Alcohol abuse with intoxication, unspecified; Y90.8 Blood alcohol level of 240 mg/100 ml or more; D72.829 Elevated white blood cell count, unspecified; R05 Cough

== ENCOUNTER 2017-12-08 08:19 | Emergency (ER) | payer MEDICAID ==
[2017-12-08 08:27] VITALS: BP 151/84; PULSE 76; RESP 20; TEMP 97.8; O2SAT 99; BMI 18.8
--- NOTE | 2017-12-08 10:00 | ED PDOC ---
Upper Extremity Pain/Injury Time Seen by Provider: 12/08/17 09:02 Chief Complaint (Nursing): Abnormal Skin Integrity Chief Complaint (Provider): Abnormal skin integrity History Per: Patient History/Exam Limitations: no limitations Onset/Duration Of Symptoms: Days (x2 weeks ) Current Symptoms Are (Timing): Still Present Additional Complaint(s): Arcelia Majano is a 57 year old female, with no significant past medical history, who presents to the emergency department after she scrapped left middle finger PIP joint x2 weeks ago. Patient reports she has now developed swelling, erythema and purulence at PIP joint. She denies any fever, chills or other medical complaints. PMD: None provided. Past Medical History Reviewed: Historical Data, Nursing Documentation, Vital Signs Vital Signs: Last Vital Signs Temp 97.8 F 12/08/17 08:25 Pulse 76 12/08/17 08:25 Resp 20 12/08/17 08:25 BP 151/84 H 12/08/17 08:25 Pulse Ox 99 12/08/17 08:25 - Medical History PMH: Anxiety, Asthma, Bronchitis, Depression Denies: Diabetes, Hepatitis, HIV, HTN, Chronic Kidney Disease, Seizures, Sexually Transmitted Disease - Surgical History Surgical History: No Surg Hx - Family History Family History: States: Unknown Family Hx - Social History Alcohol: Social Drugs: Denies - Home Medications Home Medications: Ambulatory Orders Medication Instructions Recorded Diphenhydramine HCl [Wal-Dryl] 25 mg PO PRN PRN 10/01/17 Escitalopram [Lexapro] 20 mg PO DAILY #30 tab 10/09/17 Nicotine 21 mg/24 hr [Nicoderm Cq] 1 patch TD DAILY #14 patch 10/09/17 Clindamycin [Cleocin] 300 mg PO Q8 #30 cap 12/08/17 - Allergies Allergies/Adverse Reactions: Allergies Allergy/AdvReac Type Severity Reaction Status Date / Time Sulfa (Sulfonamide Allergy RASH Verified 10/01/17 00:06 Antibiotics) Review of Systems ROS Statement: Except As Marked, All Systems Reviewed And Found Negative Constitutional: Negative for: Fever, Chills Musculoskeletal: Positive for: Hand Pain (swelling, erythema and purulence at PIP joint) Physical Exam - Reviewed Nursing Documentation Reviewed: Yes Vital Signs Reviewed: Yes - Physical Exam Appears: Positive for: Non-toxic Head Exam: Positive for: ATRAUMATIC, NORMOCEPHALIC Skin: Positive for: Normal Color, Warm, Dry Eye Exam: Positive for: Normal appearance Neck: Positive for: Painless ROM Extremity: Positive for: Capillary Refill (approximately 2 sec), Swelling (left middle finger, mildly dusky), Other (Left middle finger PIP joint extensor surface with erythema and purulence) Neurologic/Psych: Positive for: Alert, Oriented. Negative for: Motor/Sensory Deficits - ECG O2 Sat by Pulse Oximetry: 99 (RA) Pulse Ox Interpretation: Normal Medical Decision Making Medical Decision Making: Initial Plan: --Wound culture and gram stain --Reevaluation -Patient has multiple rings proximal to joint and has been unable to remove rings due to swelling. Patient declines removing rings or having them cut off. Explained to patient that blood supply distal to rings may be compromised and as a result finger may become avascular, necrotic and may require amputation. Patient understand and still declines having rings cut off. -Discussed case with Dr. Angel, hand surgeon, who recommends doing incision with 18 gauge needle. Procedure note: 18 gauge needle used after sterile prep with expression of small amount of purulent material. Finger dressed with sterile dressing. -Patient placed on Clindamycin 300mg Q8H x10 days and was advised to follow up with Dr. Angel. Patient given information to call for appointment. Scribe Attestation: Documented by Andre Ruiz, acting as a scribe for Cheng Alexis MD Provider Scribe Attestation: All medical record entries made by the Scribe were at my direction and personally dictated by me. I have reviewed the chart and agree that the record accurately reflects my personal performance of the history, physical exam, medical decision making, and the department course for this patient. I have also personally directed, reviewed, and agree with the discharge instructions and disposition. Disposition - Clinical Impression Clinical Impression: Abscess of finger - Patient ED Disposition Is Patient to be Admitted: No Counseled Patient/Family Regarding: Diagnosis, Need For Followup, Rx Given - Disposition Referrals: Shyam Angel MD [Staff Provider] - Disposition: Routine/Home Disposition Time: 10:15 Condition: FAIR Prescriptions: Clindamycin [Cleocin] 300 mg PO Q8 #30 cap Instructions: Abscess Incision and Drainage Forms: [employer] (Slovenian)
== END 2017-12-08 10:00 | disposition home or self-care (01) ==
LOC: H.ER 08:19
DX: L02.512 Cutaneous abscess of left hand (principal); F32.9 Major depressive disorder, single episode, unspecified; F41.9 Anxiety disorder, unspecified

== ENCOUNTER 2017-12-12 10:24 | Emergency (ER) | payer MEDICAID ==
[2017-12-12 10:30] VITALS: BMI 16.8
[2017-12-12 10:31] VITALS: TEMP 98.6; O2SAT 98
--- NOTE | 2017-12-12 12:44 | ED PDOC ---
Upper Extremity Pain/Injury Time Seen by Provider: 12/12/17 11:07 Chief Complaint (Nursing): Finger,Hand,&Wrist Chief Complaint (Provider): Finger,Hand,&Wrist History Per: Patient History/Exam Limitations: no limitations Additional Complaint(s): 57 years old female presents to the ED for follow up of her left third middle finger infection. Patient admits she was seen in this ED on December 08 for this reason, she started on antibiotics and was instructed to follow up with hand surgeon in which she was busy and did not schedule an appointment. Patient reports improvement of swelling and discharge symptoms since her last visit and she is able to move her finger with no difficulty. PMD: non provided Past Medical History Vital Signs: Last Vital Signs Temp 98.6 F 12/12/17 10:30 Pulse 69 12/12/17 10:30 Resp 20 12/12/17 10:30 BP 126/71 12/12/17 10:30 Pulse Ox 98 12/12/17 10:30 - Medical History PMH: Anxiety, Asthma, Bronchitis, Depression Denies: Diabetes, Hepatitis, HIV, HTN, Chronic Kidney Disease, Seizures, Sexually Transmitted Disease - Surgical History Surgical History: No Surg Hx - Family History Family History: States: Unknown Family Hx - Social History Alcohol: Social Drugs: Denies - Home Medications Home Medications: Ambulatory Orders Medication Instructions Recorded Diphenhydramine HCl [Wal-Dryl] 25 mg PO PRN PRN 10/01/17 Escitalopram [Lexapro] 20 mg PO DAILY #30 tab 10/09/17 Nicotine 21 mg/24 hr [Nicoderm Cq] 1 patch TD DAILY #14 patch 10/09/17 Clindamycin [Cleocin] 300 mg PO Q8 #30 cap 12/08/17 Bacitracin Ointment [Bacitracin] 1 appl TOP BID #1 tube 12/12/17 - Allergies Allergies/Adverse Reactions: Allergies Allergy/AdvReac Type Severity Reaction Status Date / Time Sulfa (Sulfonamide Allergy RASH Verified 10/01/17 00:06 Antibiotics) Review of Systems ROS Statement: Except As Marked, All Systems Reviewed And Found Negative Musculoskeletal: Negative for: Hand Pain (No swelling or discharge of the left 3rd middle finger) Physical Exam - Reviewed Nursing Documentation Reviewed: Yes - Physical Exam Appears: Positive for: Non-toxic, No Acute Distress Head Exam: Positive for: ATRAUMATIC, NORMOCEPHALIC Skin: Positive for: Normal Color Eye Exam: Positive for: EOMI Extremity: Positive for: Normal ROM (On PIP and finger), Capillary Refill, Swelling (localized to the dorsjum of left 3rd finger PIP). Negative for: Tenderness (of left 3rd finger), Deformity, Other (Discharge, redness, fluctuance of left middle finger) Neurologic/Psych: Positive for: Alert, Oriented, Other (Intact sensation) - ECG O2 Sat by Pulse Oximetry: 98 (RA) Pulse Ox Interpretation: Normal Medical Decision Making Medical Decision Making: Time: 1215 Patient is stable for discharge and is instructed to keep up with antibiotics and keep her finger clean. She reports she will follow up with her own hand surgeon, Dr. Samayoa. Scribe Attestation: Documented by Lorena Pappas, acting as a scribe for Savannah Glover MD. Provider Scribe Attestation: All medical record entries made by the Scribe were at my direction and personally dictated by me. I have reviewed the chart and agree that the record accurately reflects my personal performance of the history, physical exam, medical decision making, and the department course for this patient. I have also personally directed, reviewed, and agree with the discharge instructions and disposition. Disposition - Clinical Impression Clinical Impression: Finger infection - Disposition Referrals: Shyam Angel MD [Staff Provider] - Disposition: Routine/Home Disposition Time: 12:15 Condition: GOOD Additional Instructions: Continue you antibiotics. Follow up with hand specialist in 2-3 days. Prescriptions: Bacitracin Ointment [Bacitracin] 1 appl TOP BID #1 tube Instructions: [place] Forms: [employer] (Vietnamese)
[2017-12-12 13:05] VITALS: BP 120/70; PULSE 72; RESP 18
== END 2017-12-12 12:31 | disposition home or self-care (01) ==
LOC: H.ER 10:24
DX: L08.9 Local infection of the skin and subcutaneous tissue, unspecified (principal); Z86.59 Personal history of other mental and behavioral disorders; J45.909 Unspecified asthma, uncomplicated

== ENCOUNTER 2018-01-20 00:47 | Emergency (ER) | payer MEDICAID ==
[2018-01-20 02:44] VITALS: RESP 16; BMI 17.4
[2018-01-20] MEDS ORDERED: Sodium Chloride 0.9% 1,000 ML IV STA (03:38)
--- NOTE | 2018-01-20 03:41 | ED PDOC ---
Syncope/Near Syncope/Dizziness Time Seen by Provider: 01/20/18 03:08 Chief Complaint (Nursing): Dizziness/Lightheaded Chief Complaint (Provider): near-syncope History Per: Patient History/Exam Limitations: no limitations Onset/Duration Of Symptoms: Hrs Current Symptoms Are (Timing): Still Present Activity At Onset Of Symptoms: Walking Associated Symptoms Preceding Syncopal Episode: Lightheadedness Possible Causative Factor(s): Decreased PO Intake Additional Complaint(s): 57 y/o non-domiciled female presents for evaluation of near-syncope x 12 hours. Patient states she was outside in the heat all day walking dogs and feels dehydrated, with associated generalized weakness, dizziness, and decreased PO intake. Admits to drinking one alcoholic beverage tonight. Denies headache, extremity numbness/weakness, vision changes, chest pain, shortness of breath, palpitations, leg pain/swelling. Past Medical History Reviewed: Historical Data, Nursing Documentation, Vital Signs Vital Signs: Last Vital Signs Temp 97.9 F 01/20/18 02:50 Pulse 84 01/20/18 02:50 Resp 16 01/20/18 02:50 BP 118/75 01/20/18 02:50 Pulse Ox 98 01/20/18 02:50 - Medical History PMH: Anxiety, Asthma, Bronchitis, Depression Denies: Diabetes, Hepatitis, HIV, HTN, Chronic Kidney Disease, Seizures, Sexually Transmitted Disease - Family History Family History: States: Unknown Family Hx - Home Medications Home Medications: Ambulatory Orders Medication Instructions Recorded Diphenhydramine HCl [Wal-Dryl] 25 mg PO PRN PRN 10/01/17 Escitalopram [Lexapro] 20 mg PO DAILY #30 tab 10/09/17 Nicotine 21 mg/24 hr [Nicoderm Cq] 1 patch TD DAILY #14 patch 10/09/17 Clindamycin [Cleocin] 300 mg PO Q8 #30 cap 12/08/17 Bacitracin Ointment [Bacitracin] 1 appl TOP BID #1 tube 12/12/17 - Allergies Allergies/Adverse Reactions: Allergies Allergy/AdvReac Type Severity Reaction Status Date / Time Sulfa (Sulfonamide Allergy RASH Verified 10/01/17 00:06 Antibiotics) Review of Systems ROS Statement: Except As Marked, All Systems Reviewed And Found Negative Neurological: Positive for: Weakness Physical Exam - Reviewed Nursing Documentation Reviewed: Yes Vital Signs Reviewed: Yes - Physical Exam Appears: Positive for: Well, Non-toxic, No Acute Distress (sleeping) Head Exam: Positive for: ATRAUMATIC, NORMAL INSPECTION, NORMOCEPHALIC Skin: Positive for: Normal Color Eye Exam: Positive for: Normal appearance, EOMI, PERRL ENT: Positive for: Normal ENT Inspection Cardiovascular/Chest: Positive for: Regular Rate, Rhythm Respiratory: Positive for: Normal Breath Sounds Gastrointestinal/Abdominal: Positive for: Normal Exam Back: Positive for: Normal Inspection Extremity: Positive for: Normal ROM Neurologic/Psych: Positive for: Alert, Oriented. Negative for: Motor/Sensory Deficits - Laboratory Results Result Diagrams: 01/20/18 04:23 01/20/18 04:23 - ECG ECG: Positive for: Viewed By Me (reviewed by ED attending) ECG Rhythm: Positive for: Sinus Rhythm O2 Sat by Pulse Oximetry: 98 - Progress ED Course And Treament: labs, accucheck, IV fluids, ekg accucheck 60; patient given juice, sandwich 6:00 Patient states she is feeling better. Accucheck 113. Patient educated on lab findings, advised follow uP PMD 2-3 days. Return precautions given. Disposition - Clinical Impression Clinical Impression: Hypoglycemia, Generalized weakness - Patient ED Disposition Is Patient to be Admitted: No Counseled Patient/Family Regarding: Studies Performed, Diagnosis, Need For Followup - Disposition Disposition: Routine/Home Disposition Time: 05:11 Condition: IMPROVED Instructions: Low Blood Sugar in People Without Diabetes, Weakness (ED) Forms: [employer] (Frisian)
[2018-01-20 04:37] LABS: BASO % 0.7 % (0.0-2.0); EOS # 0.1 K/uL (0.0-0.7); EOS % 2.3 % (0.0-4.0); HEMOGLOBIN 13.3 g/dL (12.0-16.0); LYMPH # 1.6 K/uL (1.0-4.3); MEAN CELL VOLUME 89.3 fl (81.0-99.0); MEAN CORPUSCULAR HEMOGLOBIN 30.5 pg (27.0-31.0); MEAN CORPUSCULAR HGB CONC 34.2 g/dL (33.0-37.0); MEAN PLATELET VOLUME 7.5 fl (7.2-11.7); MONO # 0.6 K/uL (0.0-0.8); MONO % 9.2 % (0.0-10.0); NEUT # 3.8 K/uL (1.8-7.0); NEUT % 61.8 % (50.0-75.0); NRBC % 0.1 % (0.0-0.0); RBC 4.36 Mil/uL (3.80-5.20); RED CELL DISTRIBUTION WIDTH 13.8 % (11.5-14.5); WHITE BLOOD COUNT 6.2 K/uL (4.8-10.8)
[2018-01-20 04:58] LABS: ALB/GLOB RATIO 1.3 (1.0-2.1); ALBUMIN 4.3 g/dL (3.5-5.0); ALT/SGPT 28 U/L (9-52); AST/SGOT 37 U/L (14-36); BLOOD UREA NITROGEN 5 mg/dl (7-17); CALCIUM 8.9 mg/dL (8.4-10.2); GFR AFRICAN-AMERICAN > 60; GFR NON-AFRICAN AMERICAN > 60
[2018-01-20 06:01] VITALS: BP 127/69; PULSE 79; TEMP 97.8; O2SAT 96
--- NOTE | 2018-01-20 08:39 | CARD ---
APPROVED REPORT EKG Measurement Heart [id number] <Conclusion> Normal sinus rhythm with sinus arrhythmia Possible Left atrial enlargement Borderline ECG
== END 2018-01-20 06:26 | disposition home or self-care (01) ==
LOC: H.ER 00:47
DX: R55 Syncope and collapse (principal); E16.2 Hypoglycemia, unspecified; R53.1 Weakness; F32.9 Major depressive disorder, single episode, unspecified; F41.9 Anxiety disorder, unspecified; J45.909 Unspecified asthma, uncomplicated
CPT/HCPCS: 80053; 80320; 82948; 85025; 93005; 99285; J7030

== ENCOUNTER 2018-01-28 23:25 | Emergency (ER) | payer MEDICAID ==
[2018-01-28 23:25] VITALS: BMI 17.4
[2018-01-28 23:30] VITALS: RESP 18
--- NOTE | 2018-01-29 04:52 | ED PDOC ---
HPI: Psych/Substance Abuse Time Seen by Provider: 01/28/18 23:38 Chief Complaint (Nursing): Alcohol Ingestion Chief Complaint (Provider): etoh History Per: Patient, EMS Additional Complaint(s): 57 y/o female brought in by EMS for public intoxication. Patient sleeping but arousable to verbal stimuli; admits to drinking tonight. Denies acute medical or psychiatric complaints Past Medical History Reviewed: Historical Data, Nursing Documentation, Vital Signs Vital Signs: Last Vital Signs Temp 97.5 F L 01/28/18 23:30 Pulse 67 01/28/18 23:30 Resp 18 01/28/18 23:30 BP 102/41 L 01/28/18 23:30 Pulse Ox 95 01/28/18 23:30 - Medical History PMH: Anxiety, Asthma, Bronchitis, Depression Denies: Diabetes, Hepatitis, HIV, HTN, Chronic Kidney Disease, Seizures, Sexually Transmitted Disease - Family History Family History: States: Unknown Family Hx - Home Medications Home Medications: Ambulatory Orders Medication Instructions Recorded Diphenhydramine HCl [Wal-Dryl] 25 mg PO PRN PRN 10/01/17 Escitalopram [Lexapro] 20 mg PO DAILY #30 tab 10/09/17 Nicotine 21 mg/24 hr [Nicoderm Cq] 1 patch TD DAILY #14 patch 10/09/17 Clindamycin [Cleocin] 300 mg PO Q8 #30 cap 12/08/17 Bacitracin Ointment [Bacitracin] 1 appl TOP BID #1 tube 12/12/17 - Allergies Allergies/Adverse Reactions: Allergies Allergy/AdvReac Type Severity Reaction Status Date / Time Sulfa (Sulfonamide Allergy RASH Verified 10/01/17 00:06 Antibiotics) Review of Systems ROS Statement: Except As Marked, All Systems Reviewed And Found Negative Physical Exam - Reviewed Nursing Documentation Reviewed: Yes Vital Signs Reviewed: Yes - Physical Exam Appears: Positive for: Well, Non-toxic, No Acute Distress Head Exam: Positive for: ATRAUMATIC, NORMAL INSPECTION, NORMOCEPHALIC Skin: Positive for: Normal Color Eye Exam: Positive for: Normal appearance ENT: Positive for: Normal ENT Inspection Cardiovascular/Chest: Positive for: Regular Rate, Rhythm Respiratory: Positive for: Normal Breath Sounds Gastrointestinal/Abdominal: Positive for: Normal Exam Extremity: Positive for: Normal ROM Neurologic/Psych: Positive for: Alert, Oriented - ECG O2 Sat by Pulse Oximetry: 95 - Progress ED Course And Treament: accucheck, alcohol 1:00 Patient sleeping; no distress 2:30 Patient sleeping; no distress 4:00 Patient sleeping; no distress 5:30 Patient awake, alert, oriented x3. Ambulating to bathroom with steady gait Stable for discharge Disposition - Clinical Impression Clinical Impression: Alcohol abuse with intoxication - Patient ED Disposition Is Patient to be Admitted: No Counseled Patient/Family Regarding: Studies Performed, Diagnosis, Need For Followup - Disposition Disposition: Routine/Home Disposition Time: 05:30 Condition: STABLE Instructions: Alcohol Abuse and Alcoholism (DC)
[2018-01-29 06:55] VITALS: BP 122/64; PULSE 84; TEMP 98.5; O2SAT 98
== END 2018-01-29 07:30 | disposition home or self-care (01) ==
LOC: H.ER 23:25
DX: F10.129 Alcohol abuse with intoxication, unspecified (principal); Z86.59 Personal history of other mental and behavioral disorders; J45.909 Unspecified asthma, uncomplicated; Y90.8 Blood alcohol level of 240 mg/100 ml or more; F32.9 Major depressive disorder, single episode, unspecified; F41.9 Anxiety disorder, unspecified

== ENCOUNTER 2018-01-29 07:45 | Emergency (ER) | payer MEDICAID ==
[2018-01-29 07:45] VITALS: BMI 17.4
[2018-01-29 07:54] VITALS: O2SAT 98
--- NOTE | 2018-01-29 08:51 | ED PDOC ---
Lower Extremity Pain/Injury Time Seen by Provider: 01/29/18 07:51 Chief Complaint (Nursing): Alcohol Ingestion Chief Complaint (Provider): Foot pain History Per: Patient History/Exam Limitations: no limitations Onset/Duration Of Symptoms: Hrs Current Symptoms Are (Timing): Still Present Additional Complaint(s): Arcelia Majano is a 57 y/o female with a history of multiple orthopedic surgeries who presents to the ED with complaints of left foot pain, onset prior to arrival. Patient explains that her left foot has been hurting because she has been walking a lot. Patient was recently discharged for alcohol intoxication but returned to the ED due to pain. She has no other medical problems. PMD: Angelica Arteagazabeth Past Medical History Reviewed: Historical Data, Nursing Documentation, Vital Signs Vital Signs: Last Vital Signs Temp 98 F 01/29/18 07:51 Pulse 84 01/29/18 07:51 Resp BP 98/68 L 01/29/18 07:51 Pulse Ox 98 01/29/18 07:51 - Medical History PMH: Anxiety, Asthma, Bronchitis, Depression Denies: Diabetes, Hepatitis, HIV, HTN, Chronic Kidney Disease, Seizures, Sexually Transmitted Disease - Surgical History Other surgeries: Orthopedic surgery (multiple) - Family History Family History: States: Unknown Family Hx - Social History Current smoker - smoking cessation education provided: Yes SMOKER/PACKS PER DAY:: 1 (Half pack) Alcohol: > 2 Drinks/Day (Frequent drinker) Drugs: Denies - Home Medications Home Medications: Ambulatory Orders Medication Instructions Recorded Diphenhydramine HCl [Wal-Dryl] 25 mg PO PRN PRN 10/01/17 Escitalopram [Lexapro] 20 mg PO DAILY #30 tab 10/09/17 Nicotine 21 mg/24 hr [Nicoderm Cq] 1 patch TD DAILY #14 patch 10/09/17 Clindamycin [Cleocin] 300 mg PO Q8 #30 cap 12/08/17 Bacitracin Ointment [Bacitracin] 1 appl TOP BID #1 tube 12/12/17 Ibuprofen [Motrin Tab] 600 mg PO Q6 #30 tab 01/29/18 - Allergies Allergies/Adverse Reactions: Allergies Allergy/AdvReac Type Severity Reaction Status Date / Time Sulfa (Sulfonamide Allergy RASH Verified 01/29/18 07:48 Antibiotics) Review of Systems ROS Statement: Except As Marked, All Systems Reviewed And Found Negative Musculoskeletal: Positive for: Foot Pain (left) Physical Exam - Reviewed Nursing Documentation Reviewed: Yes Vital Signs Reviewed: Yes - Physical Exam Appears: Positive for: Non-toxic, No Acute Distress Head Exam: Positive for: ATRAUMATIC, NORMOCEPHALIC Skin: Positive for: Normal Color, Warm, Dry Eye Exam: Positive for: EOMI, Normal appearance, PERRL Neck: Positive for: Normal, Painless ROM, Supple Cardiovascular/Chest: Positive for: Regular Rate, Rhythm. Negative for: Murmur Respiratory: Positive for: Normal Breath Sounds. Negative for: Respiratory Distress Pulses-Dorsalis Pedis (L): 2+ Pulses-Dorsalis Pedis (R): 2+ Gastrointestinal/Abdominal: Positive for: Normal Exam, Soft. Negative for: Tenderness Back: Positive for: Normal Inspection. Negative for: L CVA Tenderness, R CVA Tenderness, Vertebral Tenderness Extremity: Positive for: Normal ROM (upper and lower), Tenderness (over dorsum of left foot. ), Capillary Refill (<2 sec), Other (No skin changes, no hematoma. ). Negative for: Pedal Edema, Deformity, Swelling (left foot) Neurologic/Psych: Positive for: Alert, Oriented. Negative for: Motor/Sensory Deficits - ECG O2 Sat by Pulse Oximetry: 98 (RA) Pulse Ox Interpretation: Normal Medical Decision Making Medical Decision Making: Time: 08:13 Initial Impression: Left foot pain Initial Plan: --RAD - left foot 3 views --reevaluation Time: 09:16 Looking at RAD films, negative for any fracture from provider's view. 09:25 Upon provider reevaluation patient is feeling better, is medically stable, and requires no further treatment in the ED at this time. Patient will be discharged home. Counseling was provided and all questions were answered regarding diagnosis and need for follow up with cold header. There is agreement to discharge plan. Return if symptoms persist or worsen. pt noted to be ambulating on feet without difficulty. pt noted to have borderline bp, but that is consistent from past visit. RAD - Left Foot 3 Views Time: 09:35 FINDINGS: BONES: No evidence of acute displaced fracture nor dislocation. JOINTS: There is a moderate hallux valgus deformity with mild DJD 1st MTP joint. There is also mild prominence of the medial soft tissues over the head of the metatarsal 1st MTP joint as well. . On suspect old healed fracture deformity distal left fibula with the productive changes seen arising from the medial margins of the adjacent tibia and fibula. SOFT TISSUES: Normal. OTHER FINDINGS: None. IMPRESSION: No evidence of acute displaced fracture nor dislocation. If symptoms persist or occult fracture suspected clinically recommend repeat radiographs in 7-10 days as most fractures should become radiographically evident in this timeframe. Old fracture deformity distal left fibula without productive changes as detailed above Scribe Attestation: Documented Alvaro Charlton acting as a scribe for Senait Thompson MD. Scribe Attestation: All medical record entries made by the Scribe were at my direction and personally dictated by me. I have reviewed the chart and agree that the record accurately reflects my personal performance of the history, physical exam, medical decision making, and the department course for this patient. I have also personally directed, reviewed, and agree with the discharge instructions and disposition. Disposition - Clinical Impression Clinical Impression: Foot pain - Patient ED Disposition Is Patient to be Admitted: No Counseled Patient/Family Regarding: Studies Performed, Diagnosis, Need For Followup - Disposition Referrals: [facility] [Outside] Podiatry Clinic [Outside] Disposition: Routine/Home Disposition Time: 09:15 Condition: IMPROVED Additional Instructions: follow up with podiatry for further management of foot pain return to the ED with any worsening or concerning symptoms ARCELIA MAJANO, thank you for letting us take care of you today. Your provider was Senait Thompson MD and you were treated for MEDICAL CLEARANCE. The emergency medical care you received today was directed at your acute symptoms. If you were prescribed any medication, please fill it and take as directed. It may take several days for your symptoms to resolve. Return to the Emergency Department if your symptoms worsen, do not improve, or if you have any other problems. Please contact your doctor or call one of the physicians/clinics you have been referred to that are listed on the Patient Visit Information form that is included in your discharge packet. Bring any paperwork you were given at discharge with you along with any medications you are taking to your follow up visit. Our treatment cannot replace ongoing medical care by a primary care provider outside of the emergency department. Thank you for allowing the [facility] team to be part of your care today. If you had an X-Ray or CT scan: A Radiologist will review the ED reading if any change in treatment is needed we will contact you. Instructions: Foot Sprain (DC) Forms: [employer] (Bulgarian)
[2018-01-29 09:26] VITALS: BP 99/56; PULSE 74; RESP 16; TEMP 97.8
--- NOTE | 2018-01-29 09:37 | RAD ---
PROCEDURE: Left Foot Radiographs. HISTORY: left foot pain COMPARISON: None. FINDINGS: BONES: No evidence of acute displaced fracture nor dislocation. JOINTS: There is a moderate hallux valgus deformity with mild DJD 1st MTP joint. There is also mild prominence of the medial soft tissues over the head of the metatarsal 1st MTP joint as well. . On suspect old healed fracture deformity distal left fibula with the productive changes seen arising from the medial margins of the adjacent tibia and fibula. SOFT TISSUES: Normal. OTHER FINDINGS: None. IMPRESSION: No evidence of acute displaced fracture nor dislocation. If symptoms persist or occult fracture suspected clinically recommend repeat radiographs in 7-10 days as most fractures should become radiographically evident in this timeframe. Old fracture deformity distal left fibula without productive changes as detailed above
== END 2018-01-29 09:26 | disposition home or self-care (01) ==
LOC: H.ER 07:45
DX: M79.672 Pain in left foot (principal); F32.9 Major depressive disorder, single episode, unspecified; F41.9 Anxiety disorder, unspecified; F17.210 Nicotine dependence, cigarettes, uncomplicated; J45.909 Unspecified asthma, uncomplicated

== ENCOUNTER 2018-02-04 11:22 | Emergency (ER) | payer MEDICAID ==
[2018-02-04 11:22] VITALS: BMI 17.4
[2018-02-04 11:28] VITALS: O2SAT 100
--- NOTE | 2018-02-04 12:05 | ED PDOC ---
Lower Extremity Pain/Injury Time Seen by Provider: 02/04/18 11:46 Chief Complaint (Nursing): Lower Extremity Problem/Injury Chief Complaint (Provider): Lower Extremity Problem/Injury History Per: Patient History/Exam Limitations: no limitations Onset/Duration Of Symptoms: Other (x 1 week) Current Symptoms Are (Timing): Still Present Additional Complaint(s): 57-year-old female presents to ED with left foot pain going on for 2 weeks. Pt was seen here last week for similar problems. Pt was supposed to follow up with podiatry clinic, but has not made appointment yet. Pt reports discoloration of nails in both her feet. 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 Pt reports left foot pain. Pt states she took Aleve for pain with some relief. Pt is worried about some of her nails are discolored and breaking apart, prompting ED visit. Able to ambulate. PMD: No Provider Past Medical History Reviewed: Historical Data, Nursing Documentation, Vital Signs Vital Signs: Last Vital Signs Temp 98.5 F 02/04/18 11:27 Pulse 82 02/04/18 11:27 Resp 20 02/04/18 11:27 BP 139/68 02/04/18 11:27 Pulse Ox 100 02/04/18 11:27 - Medical History PMH: Anxiety, Asthma, Bronchitis, Depression, Osteoporosis Denies: Diabetes, Hepatitis, HIV, HTN, Chronic Kidney Disease, Seizures, Sexually Transmitted Disease - Surgical History Surgical History: No Surg Hx - Family History Family History: States: Unknown Family Hx - Social History Current smoker - smoking cessation education provided: Yes ((+)) - Home Medications Home Medications: Ambulatory Orders Medication Instructions Recorded Diphenhydramine HCl [Wal-Dryl] 25 mg PO PRN PRN 10/01/17 Escitalopram [Lexapro] 20 mg PO DAILY #30 tab 10/09/17 Nicotine 21 mg/24 hr [Nicoderm Cq] 1 patch TD DAILY #14 patch 10/09/17 Clindamycin [Cleocin] 300 mg PO Q8 #30 cap 12/08/17 Bacitracin Ointment [Bacitracin] 1 appl TOP BID #1 tube 12/12/17 Ibuprofen [Motrin Tab] 600 mg PO Q6 #30 tab 01/29/18 Naproxen 500 mg PO BID #20 tab 02/04/18 Terbinafine HCl 250 mg PO DAILY #30 tablet 02/04/18 - Allergies Allergies/Adverse Reactions: Allergies Allergy/AdvReac Type Severity Reaction Status Date / Time Sulfa (Sulfonamide Allergy RASH Verified 01/29/18 07:48 Antibiotics) Review of Systems ROS Statement: Except As Marked, All Systems Reviewed And Found Negative Musculoskeletal: Positive for: Foot Pain (left), Other (nail discoloration b/l feet) Physical Exam - Reviewed Nursing Documentation Reviewed: Yes Vital Signs Reviewed: Yes - Physical Exam Appears: Positive for: Well (Resting Comfortably), No Acute Distress Head Exam: Positive for: ATRAUMATIC, NORMAL INSPECTION Skin: Positive for: Normal Color Eye Exam: Positive for: EOMI Extremity: Positive for: Normal ROM, Other Neurologic/Psych: Positive for: Alert, Oriented Comments: Left foot: (-) swelling (-) tenderness (-) erythema 2nd toe nail of the Left Foot: (+) Appears discolored 3rd and 4th toe nails of Right Foot: (+) Appears discolored - ECG O2 Sat by Pulse Oximetry: 100 (RA) Pulse Ox Interpretation: Normal Medical Decision Making Medical Decision Making: Time: 12:00 Impression(s): Left foot pain, nail problems, nail discolorations Differentials include, but not limited to: Foot Sprain, fungal mycosis Plan: - Ultram 50 mg PO STAT Scribe Attestation: Documented by Epifanio Ac, acting as a scribe for Zane Dill MD. Provider Scribe Attestation: All medical record entries made by the Scribe were at my direction and personally dictated by me. I have reviewed the chart and agree that the record accurately reflects my personal performance of the history, physical exam, medical decision making, and the department course for this patient. I have also personally directed, reviewed, and agree with the discharge instructions and disposition. Disposition - Clinical Impression Clinical Impression: Foot sprain, Onychomycosis - Disposition Referrals: Podiatry Clinic [Outside] Disposition Time: 12:15 Condition: GOOD Additional Instructions: Follow up with your PCP and podiatry within 1 week. You will need to continue treatment for 12 weeks for fungal infection. Prescriptions: Naproxen 500 mg PO BID #20 tab Terbinafine HCl 250 mg PO DAILY #30 tablet Instructions: Fungal Nail Infections, Foot Sprain (DC)
[2018-02-04 12:24] VITALS: BP 127/65; PULSE 75; RESP 17; TEMP 98.8
== END 2018-02-04 12:20 | disposition home or self-care (01) ==
LOC: H.ER 11:22
DX: S93.601A Unspecified sprain of right foot, initial encounter (principal); Y92.89 Other specified places as the place of occurrence of the external cause; B35.1 Tinea unguium

== ENCOUNTER 2018-02-20 20:45 | Emergency (ER) | payer MEDICAID ==
[2018-02-20 20:45] VITALS: BMI 17.4
[2018-02-20] MEDS ORDERED: DiphenhydrAMINE 50 mg/ml Inj IM STA (21:22)
--- NOTE | 2018-02-20 21:25 | ED PDOC ---
HPI: Psych/Substance Abuse Time Seen by Provider: 02/20/18 21:14 Chief Complaint (Nursing): Alcohol Ingestion Chief Complaint (Provider): Alcohol intoxication ED Caveat: Intoxicated History Per: EMS History/Exam Limitations: intoxication Onset/Duration Of Symptoms: Hrs (several) Current Symptoms Are (Timing): Still Present (Pt presents to the ED via EMS for medical clearance after they were summoned for orange picker of the patient for gross intoxication and abnormal social and aggressive behavior. The patient is agressive and agitated by staff and several attempts have been made to discuss with her reason and the consequences for her aggressive nature. Pt has no open sores, lesions, lacerations, deformities, discharge or draingage apparent) Past Medical History Reviewed: Historical Data, Nursing Documentation, Vital Signs Vital Signs: Last Vital Signs Temp 97.8 F 02/20/18 20:49 Pulse 60 02/20/18 20:49 Resp 16 02/20/18 20:49 BP 115/77 02/20/18 20:49 Pulse Ox 100 02/20/18 20:49 - Medical History PMH: Anxiety, Asthma, Bronchitis, Depression, Osteoporosis Denies: Diabetes, Hepatitis, HIV, HTN, Chronic Kidney Disease, Seizures, Sexually Transmitted Disease - Family History Family History: States: Unknown Family Hx - Home Medications Home Medications: Ambulatory Orders Medication Instructions Recorded Diphenhydramine HCl [Wal-Dryl] 25 mg PO PRN PRN 10/01/17 Escitalopram [Lexapro] 20 mg PO DAILY #30 tab 10/09/17 Nicotine 21 mg/24 hr [Nicoderm Cq] 1 patch TD DAILY #14 patch 10/09/17 Clindamycin [Cleocin] 300 mg PO Q8 #30 cap 12/08/17 Bacitracin Ointment [Bacitracin] 1 appl TOP BID #1 tube 12/12/17 Ibuprofen [Motrin Tab] 600 mg PO Q6 #30 tab 01/29/18 Naproxen 500 mg PO BID #20 tab 02/04/18 Terbinafine HCl 250 mg PO DAILY #30 tablet 02/04/18 - Allergies Allergies/Adverse Reactions: Allergies Allergy/AdvReac Type Severity Reaction Status Date / Time Sulfa (Sulfonamide Allergy RASH Verified 02/20/18 20:49 Antibiotics) Review of Systems Review Of Systems: ROS cannot be obtained secondary to pt's inabilty to answer questions. (grossly intoxicated and uncooperative--aggressive) Physical Exam - Reviewed Vital Signs Reviewed: Yes - Physical Exam Appears: Positive for: Non-toxic, No Acute Distress Head Exam: Positive for: NORMAL INSPECTION, NORMOCEPHALIC Skin: Positive for: Normal Color, Warm, Dry Cardiovascular/Chest: Positive for: Regular Rate, Rhythm. Negative for: Chest Non Tender, Edema, Gallop Respiratory: Positive for: Normal Breath Sounds. Negative for: Decreased Breath Sounds, Accessory Muscle Use, Crackles, Rales, Rhonchi, Wheezing, Respiratory Distress Pulses-Carotid (L): 2+ Pulses-Carotid (R): 2+ Pulses-Radial (L): 2+ Pulses-Radial (R): 2+ - Laboratory Results Result Diagrams: 02/20/18 22:02 02/20/18 22:02 - ECG O2 Sat by Pulse Oximetry: 100 Medical Decision Making Medical Decision Making: await sobriety; pt indicated verbally that she has no need or desire for medical treatment Upon re-evaluation and clinical sobriety, pt indicated that she felt better but had a headache and desired some type of pain relierver. Pt was given IBU and apap and discharged without incident Disposition - Clinical Impression Clinical Impression: Alcohol abuse with alcohol-induced disorder, Alcohol abuse - Patient ED Disposition Is Patient to be Admitted: No Doctor Will See Patient In The: Office - Disposition Referrals: Alcoholics Anonymous [Outside] Disposition: Routine/Home Disposition Time: 05:21 Condition: STABLE Instructions: Alcohol Abuse and Alcoholism (DC), Effects of Alcohol on Your Health Forms: [employer] (Bahamian)
[2018-02-20 22:10] LABS: BASO # 0.1 K/uL (0.0-0.2); BASO % 0.8 % (0.0-2.0); EOS # 0.2 K/uL (0.0-0.7); HEMOGLOBIN 12.6 g/dL (12.0-16.0); LYMPH % 25.8 % (20.0-40.0); MEAN CELL VOLUME 91.1 fl (81.0-99.0); MEAN CORPUSCULAR HEMOGLOBIN 31.2 pg (27.0-31.0); MEAN CORPUSCULAR HGB CONC 34.2 g/dL (33.0-37.0); MEAN PLATELET VOLUME 7.1 fl (7.2-11.7); MONO # 0.7 K/uL (0.0-0.8); MONO % 8.8 % (0.0-10.0); NEUT # 4.9 K/uL (1.8-7.0); NEUT % 62.6 % (50.0-75.0); NRBC % 0.1 % (0.0-0.0); RBC 4.04 Mil/uL (3.80-5.20); RED CELL DISTRIBUTION WIDTH 14.3 % (11.5-14.5); WHITE BLOOD COUNT 7.8 K/uL (4.8-10.8)
[2018-02-20 22:30] LABS: GFR AFRICAN-AMERICAN > 60; GFR NON-AFRICAN AMERICAN > 60
[2018-02-20 22:31] LABS: ALB/GLOB RATIO 1.5 (1.0-2.1); ALBUMIN 4.3 g/dL (3.5-5.0); ALT/SGPT 24 U/L (9-52); AST/SGOT 28 U/L (14-36); BLOOD UREA NITROGEN 8 mg/dl (7-17); CALCIUM 9.1 mg/dL (8.4-10.2)
[2018-02-21 06:25] VITALS: BP 131/77; PULSE 68; RESP 16; TEMP 97.9; O2SAT 98
== END 2018-02-21 06:25 | disposition home or self-care (01) ==
LOC: H.ER 20:45
DX: F10.14 Alcohol abuse with alcohol-induced mood disorder (principal); F32.9 Major depressive disorder, single episode, unspecified; F41.9 Anxiety disorder, unspecified; R51 Headache
CPT/HCPCS: 80053; 80320; 85025; 96372; 99285; J1200; J2060

== ENCOUNTER 2018-03-09 21:02 | Emergency (ER) | payer MEDICAID ==
[2018-03-09 21:02] VITALS: BMI 17.4
[2018-03-09 21:31] VITALS: RESP 18; O2SAT 98
[2018-03-09] MEDS ORDERED: Sodium Chloride 0.9% 1,000 ML IV STA (22:18)
--- NOTE | 2018-03-09 22:21 | ED PDOC ---
HPI: General Adult Time Seen by Provider: 03/09/18 21:56 Chief Complaint (Nursing): Dizziness/Lightheaded Chief Complaint (Provider): dehydrated History Per: Patient History/Exam Limitations: no limitations Onset/Duration Of Symptoms: Hrs Current Symptoms Are (Timing): Still Present Additional Complaint(s): 57 y/o female presents for evaluation of possible dehydration x 5 hours. Patient states she was outside walking dogs all day and now feels weak and dizzy which she gets when shes dehydrated. Patient also admits to drinking 2 alcoholic drinks tonight. Denies fever, headache, extremity numbness/weakness, chest pain, vomiting, shortness of breath, palpitations, changes in bowel movements, urinary symptoms. Past Medical History Reviewed: Historical Data, Nursing Documentation, Vital Signs Vital Signs: Last Vital Signs Temp 97.8 F 03/09/18 21:29 Pulse 90 03/09/18 21:29 Resp 18 03/09/18 21:29 BP 112/66 03/09/18 21:29 Pulse Ox 98 03/09/18 22:21 - Medical History PMH: Anxiety, Asthma, Bronchitis, Depression, Osteoporosis Denies: Diabetes, Hepatitis, HIV, HTN, Chronic Kidney Disease, Seizures, Sexually Transmitted Disease - Surgical History Surgical History: No Surg Hx - Family History Family History: States: Unknown Family Hx - Home Medications Home Medications: Ambulatory Orders Medication Instructions Recorded Diphenhydramine HCl [Wal-Dryl] 25 mg PO PRN PRN 10/01/17 Escitalopram [Lexapro] 20 mg PO DAILY #30 tab 10/09/17 Nicotine 21 mg/24 hr [Nicoderm Cq] 1 patch TD DAILY #14 patch 10/09/17 Clindamycin [Cleocin] 300 mg PO Q8 #30 cap 12/08/17 Bacitracin Ointment [Bacitracin] 1 appl TOP BID #1 tube 12/12/17 Ibuprofen [Motrin Tab] 600 mg PO Q6 #30 tab 01/29/18 Naproxen 500 mg PO BID #20 tab 02/04/18 Terbinafine HCl 250 mg PO DAILY #30 tablet 02/04/18 - Allergies Allergies/Adverse Reactions: Allergies Allergy/AdvReac Type Severity Reaction Status Date / Time Sulfa (Sulfonamide Allergy RASH Verified 03/09/18 21:29 Antibiotics) Review of Systems ROS Statement: Except As Marked, All Systems Reviewed And Found Negative Constitutional: Positive for: Weakness Physical Exam - Reviewed Nursing Documentation Reviewed: Yes Vital Signs Reviewed: Yes - Physical Exam Appears: Positive for: Well, Non-toxic, No Acute Distress Head Exam: Positive for: ATRAUMATIC, NORMAL INSPECTION, NORMOCEPHALIC Skin: Positive for: Normal Color Eye Exam: Positive for: Normal appearance ENT: Positive for: Normal ENT Inspection Cardiovascular/Chest: Positive for: Regular Rate, Rhythm Respiratory: Positive for: Normal Breath Sounds Gastrointestinal/Abdominal: Positive for: Normal Exam Back: Positive for: Normal Inspection Extremity: Positive for: Normal ROM Neurologic/Psych: Positive for: Alert, Oriented (x3) - Laboratory Results Result Diagrams: 03/09/18 22:30 03/09/18 22:30 - ECG ECG: Positive for: Viewed By Me (reviewed by ED attending) ECG Rhythm: Positive for: Sinus Rhythm O2 Sat by Pulse Oximetry: 98 - Progress ED Course And Treament: labs, ekg, accucheck, IV fluids On re-eval, patient sleeping; upon awakening states she is feeling better. Ambulating steady gait. Patient educated on findings, discharged with instructions to follow up PMD 2-3 days Return precautions given Disposition - Clinical Impression Clinical Impression: Alcohol abuse, Generalized weakness - Patient ED Disposition Is Patient to be Admitted: No Counseled Patient/Family Regarding: Studies Performed, Diagnosis, Need For Followup - Disposition Disposition: Routine/Home Disposition Time: 00:33 Condition: IMPROVED Instructions: Weakness (ED), Alcohol Abuse and Alcoholism (DC)
[2018-03-09 22:50] LABS: BASO # 0.1 K/uL (0.0-0.2); BASO % 1.5 % (0.0-2.0); EOS # 0.3 K/uL (0.0-0.7); EOS % 3.8 % (0.0-4.0); HEMOGLOBIN 12.7 g/dL (12.0-16.0); LYMPH % 30.1 % (20.0-40.0); MEAN CELL VOLUME 90.8 fl (81.0-99.0); MEAN CORPUSCULAR HEMOGLOBIN 30.9 pg (27.0-31.0); MONO # 0.7 K/uL (0.0-0.8); MONO % 9.7 % (0.0-10.0); NEUT # 3.7 K/uL (1.8-7.0); NEUT % 54.9 % (50.0-75.0); RBC 4.11 Mil/uL (3.80-5.20); RED CELL DISTRIBUTION WIDTH 14.8 % (11.5-14.5); WHITE BLOOD COUNT 6.7 K/uL (4.8-10.8)
[2018-03-09 22:56] LABS: ALB/GLOB RATIO 1.5 (1.0-2.1); ALBUMIN 4.4 g/dL (3.5-5.0); ALT/SGPT 22 U/L (9-52); AST/SGOT 31 U/L (14-36); BLOOD UREA NITROGEN 7 mg/dl (7-17); CALCIUM 9.2 mg/dL (8.4-10.2); GFR AFRICAN-AMERICAN > 60; GFR NON-AFRICAN AMERICAN > 60
[2018-03-10 00:51] VITALS: BP 107/70; PULSE 71; TEMP 97.7
--- NOTE | 2018-03-10 07:12 | CARD ---
APPROVED REPORT Date of service: 03/09/2018 <Conclusion> Normal sinus rhythm Possible Left atrial enlargement Borderline ECG
== END 2018-03-10 01:29 | disposition home or self-care (01) ==
LOC: H.ER 21:02
DX: F10.10 Alcohol abuse, uncomplicated (principal); M62.81 Muscle weakness (generalized); F32.9 Major depressive disorder, single episode, unspecified; F41.9 Anxiety disorder, unspecified
CPT/HCPCS: 80053; 80320; 82948; 85025; 93005; 96360; 99283; J7030

== ENCOUNTER 2018-08-19 06:54 | Emergency (ER) | payer MEDICAID ==
[2018-08-19 06:54] VITALS: BMI 17.4
--- NOTE | 2018-08-19 06:58 | ED PDOC ---
Lower Extremity Pain/Injury Time Seen by Provider: 08/19/18 06:57 Chief Complaint (Provider): Lower Extremity Problem History Per: Patient History/Exam Limitations: no limitations Onset/Duration Of Symptoms: Persistent Current Symptoms Are (Timing): Still Present Additional Complaint(s): 64 year old female with chronic bilateral knee pain presents to the ED with knee pain after she fell earlier tonight. Patient reports her legs giving out and then hitting her head. Denies LOC, syncope, fever and other recent illness. PMD: none provided Past Medical History Reviewed: Historical Data, Nursing Documentation, Vital Signs - Medical History PMH: Anxiety, Arthritis, Asthma, Bronchitis, Depression, Osteoporosis Denies: Diabetes, Hepatitis, HIV, HTN, Chronic Kidney Disease, Seizures, Sexually Transmitted Disease - Family History Family History: States: Unknown Family Hx - Home Medications Home Medications: Ambulatory Orders Medication Instructions Recorded Diphenhydramine HCl [Wal-Dryl] 25 mg PO PRN PRN 10/01/17 Escitalopram [Lexapro] 20 mg PO DAILY #30 tab 10/09/17 Nicotine 21 mg/24 hr [Nicoderm Cq] 1 patch TD DAILY #14 patch 10/09/17 Clindamycin [Cleocin] 300 mg PO Q8 #30 cap 12/08/17 Bacitracin Ointment [Bacitracin] 1 appl TOP BID #1 tube 12/12/17 Ibuprofen [Motrin Tab] 600 mg PO Q6 #30 tab 01/29/18 Naproxen 500 mg PO BID #20 tab 02/04/18 Terbinafine HCl 250 mg PO DAILY #30 tablet 02/04/18 Azithromycin [Zithromax] 250 mg PO DAILY #6 tab 04/18/18 Ibuprofen [Motrin Tab] 600 mg PO Q6H PRN 5 Days tab 06/22/18 Ibuprofen [Motrin] 600 mg PO Q8 PRN #21 tab 07/09/18 - Allergies Allergies/Adverse Reactions: Allergies Allergy/AdvReac Type Severity Reaction Status Date / Time Sulfa (Sulfonamide Allergy RASH Verified 05/18/18 22:37 Antibiotics) Review of Systems ROS Statement: Except As Marked, All Systems Reviewed And Found Negative Musculoskeletal: Positive for: Other (bilateral knee pain and superficial abrasions) Physical Exam - Reviewed Nursing Documentation Reviewed: Yes Vital Signs Reviewed: Yes - Physical Exam Appears: Positive for: Non-toxic, No Acute Distress Head Exam: Positive for: ATRAUMATIC, NORMAL INSPECTION, NORMOCEPHALIC Skin: Positive for: Normal Color, Warm, Dry Eye Exam: Positive for: EOMI, Normal appearance, PERRL Neck: Positive for: Normal, Painless ROM, Supple Cardiovascular/Chest: Positive for: Regular Rate, Rhythm. Negative for: Murmur Respiratory: Positive for: Normal Breath Sounds. Negative for: Respiratory Distress Extremity: Positive for: Normal ROM (x 4), Other (very superficial abrasions to bilateral knees) Neurologic/Psych: Positive for: Alert, Oriented (x 3). Negative for: Motor/Sensory Deficits - ECG Pulse Ox Interpretation: Normal Medical Decision Making Medical Decision Makin:36 Impression: chronic bilateral knee pain Initial Plan: --Head CT --Bilateral knee x-rays --Left hip x-ray 07:00 Patient will be signed out to Dr. Sherman pending imaging and reevaluation. Scribe Attestation: Documented by Bibi Amador acting as a scribe for Senait Thompson MD Provider Scribe Attestation: All medical record entries made by the Scribe were at my direction and personally dictated by me. I have reviewed the chart and agree that the record accurately reflects my personal performance of the history, physical exam, medical decision making, and the department course for this patient. I have also personally directed, reviewed, and agree with the discharge instructions and disposition. Disposition - Patient ED Disposition Is Patient to be Admitted: Transfer of Care - Disposition Disposition: Transfer of Care Disposition Time: 07:00 Patient Signed Over To: Danita Sherman
[2018-08-19 07:01] VITALS: PULSE 78; RESP 19; TEMP 97.8; O2SAT 98
--- NOTE | 2018-08-19 07:09 | ED PDOC ---
- ECG O2 Sat by Pulse Oximetry: 98 (RA) Pulse Ox Interpretation: Normal Medical Decision Making Medical Decision Makin Patient endorsed to me by Dr. Thompson, pending CT and X-ray. 0725 CT findings: COMMENTS: There is normal configuration of sella turcica. There are no intra or extra- axial collections. There is no mass effect or midline shift. There is no evidence of hematoma formation. No hydrocephalus is present. The ventricles are symmetrical. No abnormal calcifications are present. There is diffuse age-appropriate cerebellar and cerebral atrophy with proportionally dilated ventricles and cortical sulci. There are bilateral periventricular and subcortical white matter hypolucencies compatible with mild chronic microvascular disease. Otherwise, no significant focal abnormalities are seen either in the posterior fossa or supratentorial compartment. IMPRESSION: 1. Age-appropriate cerebellar and cerebral atrophy. 2. Mild chronic microvascular disease. 3. No evidence of acute intracranial pathology. 0750 Hip x-ray FINDINGS: BONES: Asymmetrical advanced left hip osteoarthrosis re-noted. No interval fracture appreciated. No interval hardware failure regarding the left lateral plate with dynamic compression screw (compatible with prior left femoral fracture treatment). JOINTS: Left hip osteoarthrosis Mild right hip joint space narrowing. SOFT TISSUES: As below OTHER FINDINGS: Probable distended bladder. Metallic density right hemipelvis probably extrinsic Inferior lumbar bilateral facet hypertrophic arthrosis. Partially visualized bilateral common iliac artery atherosclerotic vascular calcifications. Minimal inferior SI joint osseous hypertrophic changes. IMPRESSION: No acute fracture or interval hardware failure noted. Advanced sclerotic and c ystic arthro pathic changes left hip. Hypertrophic osseous changes lesser and greater trochanter are similar. Other findings as above. 0815 Knee x-ray FINDINGS: BONES: Right Knee: What is labeled right knee on the lateral view is believed probably incorrect given the prior study and the current bilateral studies suggesting a left comminuted patellar fracture on images labeled tangential. More over both lateral views are labeled right. On this exam there is no lateral view labeled left Left Knee: A comminuted lateral patellar fracture is believed most likely given the prior left knee x-ray labeled as such and dated 06/22/2018. There may be minimal healing along its anterior superior fractured aspect. However most of the fracture is not healed to date. JOINTS: Right Knee: Medial tibial spine spurring consistent with mild osteoarthrosis Left knee: Medial tibial spine spurring consistent with mild osteoarthrosis SOFT TISSUES: Right Knee: Normal. Left Knee: Normal. JOINT EFFUSION: Right Knee: None. Left Knee: None. OTHER FINDINGS: None. IMPRESSION: Comminuted patellar fracture inferred as the left patella per the current tangential labeled images yet probably mislabeled on the current review which is poorly incorrectly labeled right knee. No lateral left knee view labeled as such. There may be minimal healing along its anterior superior fractured aspect. However most of the fracture is not healed to date. Comments: This has been brought to the attention of the x-ray supervisor power reactor. Scribe Attestation: Documented by Eugenio Millan, acting as a scribe for Danita Sherman MD. Provider Scribe Attestation: All medical record entries made by the Scribe were at my direction and personally dictated by me. I have reviewed the chart and agree that the record accurately reflects my personal performance of the history, physical exam, m edical decision making, and the department course for this patient. I have also personally directed, reviewed, and agree with the discharge instructions and disposition. Review of old x-ray reports - patella fracture is old. healing incomplete. needs followup in the outpatient setting. Disposition Doctor Will See Patient In The: Office Counseled Patient/Family Regarding: Diagnosis, Need For Followup - Clinical Impression Clinical Impression: Patella fracture, Head injury, closed, without LOC - POA Present On Arrival: Falls Or Trauma - Disposition Referrals: [facility] [Outside] [facility] [Outside] Disposition: Routine/Home Disposition Time: 08:20 Instructions: Minor Head Injury (DC), Patella Fracture (DC) Forms: [employer] (Vietnamese)
--- NOTE | 2018-08-19 07:57 | RAD ---
PROCEDURE: Left Hip X-ray Radiographs. HISTORY: acute on chronic pain COMPARISON: 04/26/2018 FINDINGS: BONES: Asymmetrical advanced left hip osteoarthrosis re-noted. No interval fracture appreciated. No interval hardware failure regarding the left lateral plate with dynamic compression screw (compatible with prior left femoral fracture treatment). JOINTS: Left hip osteoarthrosis Mild right hip joint space narrowing. SOFT TISSUES: As below OTHER FINDINGS: Probable distended bladder. Metallic density right hemipelvis probably extrinsic Inferior lumbar bilateral facet hypertrophic arthrosis. Partially visualized bilateral common iliac artery atherosclerotic vascular calcifications. Minimal inferior SI joint osseous hypertrophic changes. IMPRESSION: No acute fracture or interval hardware failure noted. Advanced sclerotic and cystic arthro pathic changes left hip. Hypertrophic osseous changes lesser and greater trochanter are similar. Other findings as above.
--- NOTE | 2018-08-19 08:24 | RAD ---
Date of service: 08/19/2018 PROCEDURE: Bilateral Knee Radiographs. HISTORY: bilateral knee pain, acute on chronic pain COMPARISON: 06/22/2018-within exam labeled left knee FINDINGS: BONES: Right Knee: What is labeled right knee on the lateral view is believed probably incorrect given the prior study and the current bilateral studies suggesting a left comminuted patellar fracture on images labeled tangential. More over both lateral views are labeled right. On this exam there is no lateral view labeled left Left Knee: A comminuted lateral patellar fracture is believed most likely given the prior left knee x-ray labeled as such and dated 06/22/2018. There may be minimal healing along its anterior superior fractured aspect. However most of the fracture is not healed to date. JOINTS: Right Knee: Medial tibial spine spurring consistent with mild osteoarthrosis Left knee: Medial tibial spine spurring consistent with mild osteoarthrosis SOFT TISSUES: Right Knee: Normal. Left Knee: Normal. JOINT EFFUSION: Right Knee: None. Left Knee: None. OTHER FINDINGS: None. IMPRESSION: Comminuted patellar fracture inferred as the left patella per the current tangential labeled images yet probably mislabeled on the current review which is poorly incorrectly labeled right knee. No lateral left knee view labeled as such. There may be minimal healing along its anterior superior fractured aspect. However most of the fracture is not healed to date. Comments: This has been brought to the attention of the x-ray wastewater supervisor.
[2018-08-19 11:15] VITALS: BP 120/72
== END 2018-08-19 09:12 | disposition home or self-care (01) ==
LOC: H.ER 06:54
DX: S09.90XA Unspecified injury of head, initial encounter (principal); S82.042A Displaced comminuted fracture of left patella, initial encounter for closed fracture; W19.XXXA Unspecified fall, initial encounter